=== PATIENT | male | born 1945 | race African-American/Black ===

== ENCOUNTER 2016-09-22 14:01 | Emergency (ER) | payer MEDICARE, MEDICAID ==
[~2016-09-22] VITALS: Ht 190.5 cm; Wt 82.0 kg
[~2016-09-22 14:01] MED LIST: AMLO10 PO; ASPI325T PO; ATOR10 PO; LISI10 PO; MECL25 PO; MEGE40TA PO; NIAS10004 PO; OXYBXL10 PO
[2016-09-22 14:03] VITALS: BP 197/93; PULSE 83; RESP 12; TEMP 97.9; O2SAT 98
[2016-09-22 14:46] VITALS: BP 210/96; PULSE 71; RESP 18; O2SAT 96
[2016-09-22] MEDS ORDERED: SODIUM CHLORIDE 0.9% FLUSH 5 ML FLUSH IVF PRN (15:15)
[2016-09-22] MEDS ORDERED: LEVO50TA4 PO (15:29)
[2016-09-22] MEDS ORDERED: MEGE40SU PO (15:29)
[2016-09-22] MEDS ORDERED: LISI40TA PO (15:29)
[2016-09-22] MEDS ORDERED: OXYB10TA PO (15:29)
[2016-09-22] MEDS ORDERED: HYDR-3534 PO (15:29)
[2016-09-22 15:30] VITALS: O2SAT 98
[2016-09-22 15:41] LABS: BASOPHIL % 0.9 % (0.0-2.0); EOSINOPHIL # 0.1 TH/MM3 (0-0.4); EOSINOPHIL % 3.3 % (0.0-4.0); HEMATOCRIT 34.7 % (39.0-51.0); HEMO FLAGS DIFF FINAL; LYMPH % 29.5 % (9.0-44.0); LYMPHOCYTE # 1.2 TH/MM3 (1.0-4.8); MEAN CORPUSCULAR HEMOGLOBIN 27.3 PG (27.0-34.0); MEAN CORPUSCULAR HGB CONC 32.1 % (32.0-36.0); MONO % 18.6 % (0.0-8.0); NEUT % 47.7 % (16.0-70.0); PLATELET COUNT 219 TH/MM3 (150-450); RED BLOOD COUNT 4.09 MIL/MM3 (4.50-5.90); RED CELL DISTRIBUTION WIDTH 15.8 % (11.6-17.2); WHITE BLOOD COUNT 4.1 TH/MM3 (4.0-11.0)
[2016-09-22 15:56] LABS: APTT (PATIENT) 26.8 SEC (24.3-30.1); PROTHROMBIN TIME - PATIENT 10.8 SEC (9.8-11.6)
--- NOTE | 2016-09-22 16:03 | RADRPT ---
EXAM DATE/TIME: 09/22/2016 15:46 [facility] COMPARISON: CT BRAIN W/O CONTRAST, November 25, 2015, 8:13. INDICATIONS : Tingling down left arm for 3 days; recent stroke. RADIATION DOSE: 35.03 CTDIvol (mGy) MEDICAL HISTORY : Cerebrovascular disease. Hypertension. Carcinoma, prostate.Blind. SURGICAL HISTORY : None. ENCOUNTER: Initial ACUITY: 2 days PAIN SCALE: 5/10 LOCATION: cranial TECHNIQUE: Multiple contiguous axial images were obtained of the head. Using automated exposure control and adj ustment of the mA and/or kV according to patient size, radiation dose was kept as low as reasonably a chievable to obtain optimal diagnostic quality images. FINDINGS: CEREBRUM: The ventricles are normal for age. No evidence of midline shift, mass lesion, hemorrhage or acute in farction. No extra-axial fluid collections are seen. POSTERIOR FOSSA: The cerebellum and brainstem are intact. The 4th ventricle is midline. The cerebellopontine angle i s unremarkable. EXTRACRANIAL: The visualized portion of the orbits is intact. SKULL: The calvaria is intact. No evidence of skull fracture. CONCLUSION: Stable evaluation of the brain. No evidence of acute infarct, hemorrhage, mass or edema. Juan Rebolledo MD on September 22, 2016 at 16:01 Board Certified Radiologist. This report was verified electronically.
[2016-09-22 16:04] LABS: ALT (GPT) 14 U/L (12-78); ANION GAP 10 MEQ/L (5-15); AST (GOT) 13 U/L (15-37); BICARBONATE 23.3 MEQ/L (21.0-32.0); BLOOD UREA NITROGEN 28 MG/DL (7-18); CHLORIDE 110 MEQ/L (98-107); GLOMERULAR FILTRATION RATE 25 ML/MIN (>89); POTASSIUM 3.9 MEQ/L (3.5-5.1); SODIUM (NA) 143 MEQ/L (136-145)
--- NOTE | 2016-09-22 16:07 | RADRPT ---
EXAM DATE/TIME: 09/22/2016 15:46 [facility] COMPARISON: CT CERVICAL SPINE W/O CONTRAST, August 07, 2015, 16:35. INDICATIONS : Tingling down left arm for 3 days; recent stroke. RADIATION DOSE: 18.82 CTDIvol (mGy) MEDICAL HISTORY : Cerebrovascular disease. Hypertension. Carcinoma, prostate.Blind. SURGICAL HISTORY : None. ENCOUNTER: Initial ACUITY: 2 days PAIN SCALE: 5/10 LOCATION: neck TECHNIQUE: Volumetric scanning of the cervical spine was performed. Multiplanar reconstructions in the sagittal, coronal and oblique axial planes were performed. Using automated exposure control and adjustment o f the mA and/or kV according to patient size, radiation dose was kept as low as reasonably achievable to obtain optimal diagnostic quality images. FINDINGS: Sagittal images demonstrate normal vertebral body alignment and curvature. The odontoid is intact. Th e occipital condyles and lateral masses of C1 are intact. Axial images were performed from C2-C3 to C7-T1. There is multilevel disc space narrowing and marginal osteophyte formation maximal at C6-C7. C2-C3: There is uncovertebral joint hypertrophy on left side. There is mild left sided neural foraminal narr owing. There is mild facet arthritis bilaterally. C3-C4: There is osteophytic ridging asymmetric to the right. There is uncovertebral joint hypertrophy on the right side. There is moderate neural foraminal narrowing on the right. C4-C5: There is osteophytic ridging along the posterior aspect of vertebral body. There is uncovertebral ara nt hypertrophy bilaterally. There is moderate neural foraminal narrowing bilaterally. There is mild s talon canal stenosis. C5-C6: There is mild diffuse annular bulge of the disc. The neural foramina are clear bilaterally. There is no significant spinal canal stenosis. C6-C7: There is osteophytic ridging along the posterior aspect of vertebral body. There is moderate neural f oraminal narrowing bilaterally. C7-T1: There is mild annular bulge of the disc. There is moderate facet arthritis bilaterally with ligamentu m flavum hypertrophy. The neural foramina are clear bilaterally. CONCLUSION: 1. Moderate degenerative changes as described above. There is no evidence of acute fracture. 2. Multilevel neural foraminal narrowing as above maximal at C4-C5 and C6-C7 moderate in nature Samir Antonio MD on September 22, 2016 at 16:02 Board Certified Radiologist. This report was verified electronically.
[2016-09-22 16:08] LABS: ALKALINE PHOSPHATASE 83 U/L (45-117); TOTAL BILIRUBIN ADULT 0.2 MG/DL (0.2-1.0)
[2016-09-22 17:08] VITALS: BP 201/93
--- NOTE | 2016-09-22 17:27 | PD ---
HPI Chief Complaint: Cardiac Complaint Time Seen by Provider: 14:45 Travel History International Travel<30 days: No Contact w/Intl Traveler<30days: No Traveled to known affect area: No History of Present Illness HPI This is a 71-year-old man who presents emergency department complaining of left upper some paresthesias ongoing for for 5 days. Initially thought it was related to a previous stroke that he had several months ago, but the symptoms persisted and so he came to the emergency department. He is left-handed. Hasn' t noticed any real weakness and it. He has noticed some numbness in the paresthesias. The been constant. He does note some throughout his left side of his body as well as mostly in the left arm. No other complaints. History Past Medical History Narrative Medical Chronic kidney disease Cardiomyopathy/AICD Prostate cancer, radiation cystitis COPD possibly, does smoke. Hypertension Influenza Vaccination: Yes Social History Alcohol Use: No Tobacco Use: Yes Allergies-Medications (Allergen,Severity, Reaction): Coded Allergies: Penicillin (Verified Allergy, Severe, RASH, 09/22/16) MRI PRECAUTION (Verified Adverse Reaction, Severe, NON REVO PACEMAKER 07/13, 09/22/16) Reported Meds & Prescriptions Reported Meds & Active Scripts Active Reported Levothyroxine (Levothyroxine Sodium) 50 Mcg Tab 50 Mcg PO DAILY Oxybutynin ER 24 HR (Oxybutynin Chloride) 10 Mg Tab 10 Mg PO DAILY Megestrol Liq (Megestrol Acetate) 40 Mg/Ml Susp 400 Mg PO BID Lisinopril 40 Mg Tab 40 Mg PO BID Lortab (Hydrocodone-Acetaminophen) 7.5-325 Mg Tab 1 Tab PO Q6H PRN Review of Systems Except as stated in HPI: all other systems reviewed are Neg Physical Exam Narrative GENERAL: 71-year-old: Well-appearing, no acute distress. SKIN: Warm and dry. HEAD: Atraumatic. Normocephalic. EYES: Pupils equal and round. No scleral icterus. No injection or drainage. ENT: No nasal bleeding or discharge. Mucous membranes pink and moist. NECK: Trachea midline. No JVD. CARDIOVASCULAR: Regular rate and rhythm. No murmur appreciated. RESPIRATORY: No accessory muscle use. Clear to auscultation. Breath sounds equal bilaterally. GASTROINTESTINAL: Abdomen soft, non-tender, nondistended. Hepatic and splenic margins not palpable. MUSCULOSKELETAL: No obvious deformities. No clubbing. No cyanosis. No edema. NEUROLOGICAL: Awake and alert. Strength full and equal upper and lower extremities. Symmetric equal reflexes throughout. Normal finger to nose. Normal [id number]. Subjective decreased sensation left arm. Normal sensation in both lower extremities. PSYCHIATRIC: Appropriate mood and affect; insight and judgment normal. Data Data Last Documented VS Vital Signs Date Time Temp Pulse Resp B/P Pulse Ox O2 Delivery O2 Flow Rate FiO2 09/22/16 17:08 70 18 201/93 98 09/22/16 15:30 Room Air 09/22/16 14:03 97.9 Orders Electrocardiogram (09/22/16 ) Prothrombin Time / Inr (Pt) (09/22/16 15:09) Act Partial Throm Time (Ptt) (09/22/16 15:09) Complete Blood Count With Diff (09/22/16 15:09) Comprehensive Metabolic Panel (09/22/16 15:09) Troponin I (09/22/16 15:09) Ct Brain W/O Iv Contrast(Rout) (09/22/16 15:09) Ecg Monitoring (09/22/16 15:09) Iv Access Insert/Monitor (09/22/16 15:09) Oximetry (09/22/16 15:09) Sodium Chloride 0.9% Flush (Ns Flush) (09/22/16 15:15) Ct Cerv Spine W/O Contrast (09/22/16 ) Labs Laboratory Tests Test 09/22/16 15:20 White Blood Count 4.1 TH/MM3 Red Blood Count 4.09 MIL/MM3 Hemoglobin 11.1 GM/DL Hematocrit 34.7 % Mean Corpuscular Volume 85.0 FL Mean Corpuscular Hemoglobin 27.3 PG Mean Corpuscular Hemoglobin 32.1 % Concent Red Cell Distribution Width 15.8 % Platelet Count 219 TH/MM3 Mean Platelet Volume 7.9 FL Neutrophils (%) (Auto) 47.7 % Lymphocytes (%) (Auto) 29.5 % Monocytes (%) (Auto) 18.6 % Eosinophils (%) (Auto) 3.3 % Basophils (%) (Auto) 0.9 % Neutrophils # (Auto) 2.0 TH/MM3 Lymphocytes # (Auto) 1.2 TH/MM3 Monocytes # (Auto) 0.8 TH/MM3 Eosinophils # (Auto) 0.1 TH/MM3 Basophils # (Auto) 0.0 TH/MM3 CBC Comment DIFF FINAL Differential Comment Prothrombin Time 10.8 SEC Prothromb Time International 1.0 RATIO Ratio Activated Partial 26.8 SEC Thromboplast Time Sodium Level 143 MEQ/L Potassium Level 3.9 MEQ/L Chloride Level 110 MEQ/L Carbon Dioxide Level 23.3 MEQ/L Anion Gap 10 MEQ/L Blood Urea Nitrogen 28 MG/DL Creatinine 3.01 MG/DL Estimat Glomerular Filtration 25 ML/MIN Rate Random Glucose 78 MG/DL Calcium Level 8.5 MG/DL Total Bilirubin 0.2 MG/DL Aspartate Amino Transf 13 U/L (AST/SGOT) Alanine Aminotransferase 14 U/L (ALT/SGPT) Alkaline Phosphatase 83 U/L Troponin I LESS THAN 0.02 NG/ML Total Protein 7.2 GM/DL Albumin 3.7 GM/DL MDM Medical Decision Making Medical Screen Exam Complete: Yes Emergency Medical Condition: Yes Interpretation(s) My review of EKG: Normal sinus rhythm at a rate of 69, inferior T-wave inversions, lateral T wave inversions, likely LVH. However, compared to previous EKG from November 22, T wave inversions are completely new. LABS: CBC unremarkable, mild anemia. CMP unremarkable Troponin negative. Coags unremarkable Head CT: Stable. C-spine CT: Moderate degenerative changes. No evidence of acute fracture. Multilevel neuroforaminal narrowing as above, maximal at C4 5, C6 7. Differential Diagnosis Radiculopathy, stroke, ACS, electrolyte abnormality, other Narrative Course Medical decision-making new para 71 year-old man, multiple medical problems, presents to the emergency department complaining of left arm paresthesias and numbness, as well as some and the rest of the body. He looks generally well. Some subjective sensory changes in the arm. Leg exam is normal. History of stroke. History of cardiomyopathy. Initial workups unremarkable with the exception of new T-wave inversions lateral EKG. He's had a previous evaluation for stroke symptoms including carotid Dopplers. He is not able to get an MRI because of his AICD. I recommended the patient [facility] especially given his new T-wave inversions. Patient is unable/unwilling to stay because his obligations at home but does agree to return immediately for any worsening symptoms. I discussed my concern for cardiac ischemia and risk for RI. Diagnosis Primary Impression: Paresthesia of left upper extremity Patient Instructions: General Instructions Additional Instructions: Follow-up with your primary doctor in the next 2-3 days. Return to emergency department immediately for any worsening numbness, weakness , clumsiness, or any other new or worsening symptoms. Med/Other Pt SpecificInfo: No Change to Meds Disposition: 01 DISCHARGE HOME Condition: Stable Ronnie Francois MD Sep 22, 2016 17:27
--- NOTE | 2016-09-23 20:38 | EKG ---
Date Performed: 09/22/2016 Time Performed: 14:49:48 PTAGE: 71 years EKG: Sinus rhythm WITH FIRST DEGREE AV BLOCK LEFT VENTRICULAR HYPERTROPHY AND ST-T CHANGE ABNORMAL ECG PREVIOUS TRACING : 11/23/2015 13.35 Compared to the previous tracing, ST-T changes now present DOCTOR: Fausto Jeong Interpretating Date/Time 09/23/2016 20:36:53
== END 2016-09-22 18:04 | disposition home or self-care (01) ==
LOC: NEPE 14:01
DX: R20.2 Paresthesia of skin (principal); N18.9 Chronic kidney disease, unspecified; I12.9 Hypertensive chronic kidney disease with stage 1 through stage 4 chronic kidney disease, or unspecified chronic kidney disease; Z72.0 Tobacco use
CPT/HCPCS: 70450; 72125; 80053; 84484; 85025; 85610; 85730; 93005

== ENCOUNTER 2016-12-05 20:02 | Emergency (ER) | payer MEDICARE, MEDICAID ==
[~2016-12-05] VITALS: Ht 193 cm; Wt 81.0 kg
[~2016-12-05 20:02] MED LIST changes: -AMLO10 PO; -ASPI325T PO; -ATOR10 PO; +HYDR-3534 PO; +LEVO50TA4 PO; -LISI10 PO; +LISI40TA PO; -MECL25 PO; +MEGE40SU PO; -MEGE40TA PO; -NIAS10004 PO; +OXYB10TA PO; -OXYBXL10 PO
[2016-12-05 20:12] VITALS: BP 189/91; PULSE 63; RESP 16; TEMP 97.7; O2SAT 97
[2016-12-05] MEDS ORDERED: SODIUM CHLORIDE 0.9% FLUSH 10 ML FLUSH IVF PRN (20:15)
--- NOTE | 2016-12-05 20:23 | PD ---
HPI Chief Complaint: Cardiac Complaint Time Seen by Provider: 20:12 Travel History International Travel<30 days: No Contact w/Intl Traveler<30days: No Traveled to known affect area: No History of Present Illness HPI The patient is 71. He arrives by EMS. He has a dual-chamber defibrillator replaced by Dr. Dhillon approximately 2 years prior. Today he felt the device discharge twice about 2 seconds apart. The patient was walking at the time in his home. He fell to the floor. His daughter heard a thud and called EMS. Prior to the defibrillation and afterwards the patient had no chest pain palpitation shortness of breath nausea dizziness or lightheadedness or medical complaints otherwise. EMS notes on scene the blood pressure was 200/100 with a heart rate of 70. The patient states that today was a normal day for him in the last several days have been normal with no change in his typical routine. No LOC occurred. PFSH Past Medical History Hx Anticoagulant Therapy: No Anemia: Yes Arthritis: Yes Asthma: No Blood Disorders: No Depression: Yes Heart Rhythm Problems: Yes Cancer: Yes (PROSTATE HX) Cardiac Catheterization: No Cardiovascular Problems: Yes (HTN, AICD) High Cholesterol: No Chemotherapy: No Chest Pain: No Congestive Heart Failure: Yes COPD: No Cerebrovascular Accident: Yes Diabetes: No Diminished Hearing: No Endocrine: No Gastrointestinal Disorders: No Genitourinary: Yes ([place] PROSTATE) Headaches: No Hepatitis: No Hiatal Hernia: No Heparin Induced Thrombocytopen: No Hypertension: Yes Immune Disorder: No Implanted Vascular Access Dvce: Yes (DEFIBRILLATOR LEFT UPPER CHEST) Kidney Stones: No Musculoskeletal: Yes Neurologic: No Psychiatric: Yes Reproductive: No Respiratory: No Myocardial Infarction: No Radiation Therapy: Yes Renal Failure: No Sleep Apnea: No Thyroid Disease: No Past Surgical History Abdominal Surgery: No AICD: No Arteriovenous Shunt: No Body Medical Devices: AICD Cardiac Surgery: Yes (DEFIB) Coronary Artery Bypass Graft: No Ear Surgery: No Endocrine Surgery: No Eye Surgery: No Genitourinary Surgery: Yes (prostatectomy with 46 treatments of radiation) Gynecologic Surgery: No Insulin Pump: No Joint Replacement: No Neurologic Surgery: No Oral Surgery: No Pacemaker: Yes (DEFIB) Thoracic Surgery: No Other Surgery: Yes (PACER MAKER PLACED) Social History Alcohol Use: No Tobacco Use: Yes Substance Use: No Allergies-Medications (Allergen,Severity, Reaction): Coded Allergies: Penicillin (Verified Allergy, Severe, RASH, 12/05/16) MRI PRECAUTION (Verified Adverse Reaction, Severe, NON REVO PACEMAKER 07/13, 12/05/16) Reported Meds & Prescriptions Reported Meds & Active Scripts Active Reported Oxybutynin ER 24 HR (Oxybutynin Chloride) 10 Mg Tab 10 Mg PO DAILY Megestrol Liq (Megestrol Acetate) 40 Mg/Ml Susp 400 Mg PO BID Lisinopril 40 Mg Tab 40 Mg PO BID Review of Systems Except as stated in HPI: all other systems reviewed are Neg Physical Exam Narrative GENERAL: 71-year-old male pleasant no acute distress asymptomatic SKIN: Warm and dry. HEAD: Atraumatic. Normocephalic. EYES: Pupils equal and round. No scleral icterus. No injection or drainage. ENT: No nasal bleeding or discharge. Mucous membranes pink and moist. NECK: Trachea midline. No JVD. CARDIOVASCULAR: Regular rate and rhythm. Pacing device L anterior chest wall. RESPIRATORY: No accessory muscle use. Clear to auscultation. Breath sounds equal bilaterally. GASTROINTESTINAL: Abdomen soft, non-tender, nondistended. Hepatic and splenic margins not palpable. MUSCULOSKELETAL: Extremities without clubbing, cyanosis, or edema. No obvious deformities. NEUROLOGICAL: Awake and alert. No obvious cranial nerve deficits. Motor grossly within normal limits. Five out of 5 muscle strength in the arms and legs. Normal speech. PSYCHIATRIC: Appropriate mood and affect; insight and judgment normal. Data Data Last Documented VS Vital Signs Date Time Temp Pulse Resp B/P Pulse Ox O2 Delivery O2 Flow Rate FiO2 12/05/16 21:53 62 17 204/104 97 Room Air 12/05/16 20:12 97.7 Orders Electrocardiogram (12/05/16 20:12) Basic Metabolic Panel (Bmp) (12/05/16 20:12) Ckmb (Isoenzyme) Profile (12/05/16 20:12) Complete Blood Count With Diff (12/05/16 20:12) Magnesium (Mg) (12/05/16 20:12) Prothrombin Time / Inr (Pt) (12/05/16 20:12) Act Partial Throm Time (Ptt) (12/05/16 20:12) Troponin I (12/05/16 20:12) Chest, Single Ap (12/05/16 20:12) Ecg Monitoring (12/05/16 20:12) Iv Access Insert/Monitor (12/05/16 20:12) Oximetry (12/05/16 20:12) Oxygen Administration (12/05/16 20:12) Sodium Chloride 0.9% Flush (Ns Flush) (12/05/16 20:15) CKMB (12/05/16 20:30) CKMB% (12/05/16 20:30) Lisinopril (Prinivil) (12/05/16 21:30) Labs Laboratory Tests Test 12/05/16 20:30 White Blood Count 3.8 TH/MM3 Red Blood Count 4.43 MIL/MM3 Hemoglobin 11.7 GM/DL Hematocrit 37.1 % Mean Corpuscular Volume 83.7 FL Mean Corpuscular Hemoglobin 26.4 PG Mean Corpuscular Hemoglobin 31.6 % Concent Red Cell Distribution Width 16.6 % Platelet Count 205 TH/MM3 Mean Platelet Volume 8.0 FL Neutrophils (%) (Auto) 41.1 % Lymphocytes (%) (Auto) 32.7 % Monocytes (%) (Auto) 19.2 % Eosinophils (%) (Auto) 5.9 % Basophils (%) (Auto) 1.1 % Neutrophils # (Auto) 1.6 TH/MM3 Lymphocytes # (Auto) 1.2 TH/MM3 Monocytes # (Auto) 0.7 TH/MM3 Eosinophils # (Auto) 0.2 TH/MM3 Basophils # (Auto) 0.0 TH/MM3 CBC Comment DIFF FINAL Differential Comment Prothrombin Time 11.5 SEC Prothromb Time International 1.0 RATIO Ratio Activated Partial 26.9 SEC Thromboplast Time Sodium Level 141 MEQ/L Potassium Level 4.6 MEQ/L Chloride Level 112 MEQ/L Carbon Dioxide Level 21.3 MEQ/L Anion Gap 8 MEQ/L Blood Urea Nitrogen 21 MG/DL Creatinine 2.98 MG/DL Estimat Glomerular Filtration 25 ML/MIN Rate Random Glucose 99 MG/DL Calcium Level 8.3 MG/DL Magnesium Level 2.3 MG/DL Total Creatine Kinase 113 U/L Creatine Kinase MB 0.8 NG/ML Troponin I LESS THAN 0.02 NG/ML MDM Medical Decision Making Medical Screen Exam Complete: Yes Emergency Medical Condition: Yes Differential Diagnosis NSTEMI, unstable angina, coronary vasospasm, PE, PTX, aortic dissection, pericarditis, myocarditis, endocarditis, PNA, esophageal disease, aneurysm, musculoskeletal etiologies, anxiety, cocaine/sympathomimetic abuse Narrative Course CBC & BMP Diagram 12/05/16 20:30 Troponin is less than 0.02 EKG sinus rhythm, MN interval 220 ms, T-wave inversions in the inferior leads noted which appear stable in comparison to our most recent EKG from about 2 months prior The patient has remained asymptomatic throughout his ER course. Interrogation of trauma device shows no episode of arrhythmia since 3 months prior when it was last interrogated. Patient requests discharge. His workup here is unremarkable aside from mild hypertension. He agrees to follow-up with primary care for further evaluation. Return precautions discussed. Diagnosis Primary Impression: Fall Qualified Code: W19.XXXA - Fall, initial encounter Additional Impression: Chest pain Qualified Code: R07.9 - Chest pain, unspecified type Referrals: Occup [facility] 2 days Primary Care Physician 2 days Additional Instructions: You have a choice when it comes to health care, and we are glad that you chose [facility]. Hopefully, we have met your expectations on today's visit. You are welcome to return to [facility] at any time, as we are committed to meeting the health care needs of our community. Med/Other Pt SpecificInfo: No Change to Meds Disposition: 01 DISCHARGE HOME Condition: Stable Abdiel Ballard MD Dec 05, 2016 20:23
[2016-12-05 20:24] VITALS: BP 192/93; PULSE 61; RESP 19; O2SAT 98
--- NOTE | 2016-12-05 20:39 | RADRPT ---
EXAM DATE/TIME: 12/05/2016 20:15 [facility] COMPARISON: CHEST SINGLE AP, November 23, 2015, 14:02. INDICATIONS : Chest pain, defibulator went off. MEDICAL HISTORY : Cerebrovascular disease. Hypertension. Carcinoma, prostate. SURGICAL HISTORY : AICD. ENCOUNTER: Initial ACUITY: 1 day PAIN SCORE: 2/10 LOCATION: chest FINDINGS: The lungs are symmetrically aerated and clear. The heart is normal size. Cardiac pacer leads stable in position. No evidence of pneumothorax. The osseous structures are intact. CONCLUSION: The lungs are clear. Haris Blanc MD on December 05, 2016 at 20:37 Board Certified Radiologist. This report was verified electronically.
[2016-12-05 20:47] LABS: APTT (PATIENT) 26.9 SEC (24.3-30.1); PROTHROMBIN TIME - PATIENT 11.5 SEC (9.8-11.6)
[2016-12-05 20:50] LABS: AUTOMATED NEUTROPHIL # 1.6 TH/MM3 (1.8-7.7); BASOPHIL % 1.1 % (0.0-2.0); EOSINOPHIL # 0.2 TH/MM3 (0-0.4); EOSINOPHIL % 5.9 % (0.0-4.0); HEMATOCRIT 37.1 % (39.0-51.0); HEMO FLAGS DIFF FINAL; LYMPH % 32.7 % (9.0-44.0); LYMPHOCYTE # 1.2 TH/MM3 (1.0-4.8); MEAN CELL VOLUME 83.7 FL (80.0-100.0); MEAN CORPUSCULAR HEMOGLOBIN 26.4 PG (27.0-34.0); MEAN CORPUSCULAR HGB CONC 31.6 % (32.0-36.0); MONO % 19.2 % (0.0-8.0); NEUT % 41.1 % (16.0-70.0); PLATELET COUNT 205 TH/MM3 (150-450); RED BLOOD COUNT 4.43 MIL/MM3 (4.50-5.90); RED CELL DISTRIBUTION WIDTH 16.6 % (11.6-17.2); WHITE BLOOD COUNT 3.8 TH/MM3 (4.0-11.0)
[2016-12-05 20:54] VITALS: BP 185/90; PULSE 67; RESP 19; O2SAT 98
[2016-12-05 21:04] LABS: ANION GAP 8 MEQ/L (5-15); BICARBONATE 21.3 MEQ/L (21.0-32.0); BLOOD UREA NITROGEN 21 MG/DL (7-18); CHLORIDE 112 MEQ/L (98-107); CREATINE KINASE 113 U/L (39-308); GLOMERULAR FILTRATION RATE 25 ML/MIN (>89); MAGNESIUM 2.3 MG/DL (1.5-2.5); POTASSIUM 4.6 MEQ/L (3.5-5.1); SODIUM (NA) 141 MEQ/L (136-145)
[2016-12-05 21:17] LABS: CKMB 0.8 NG/ML (0.5-3.6)
[2016-12-05] MEDS ORDERED: LISINOPRIL 20 MG TAB PO ONE (21:30)
[2016-12-05 21:36] VITALS: BP 177/97; PULSE 62; RESP 19; O2SAT 99
[2016-12-05 21:53] VITALS: BP 204/104; PULSE 62; RESP 17; O2SAT 97
--- NOTE | 2016-12-05 23:38 | EKG ---
Date Performed: 12/05/2016 Time Performed: 20:10:56 PTAGE: 71 years EKG: Sinus rhythm WITH FIRST DEGREE AV BLOCK LEFT VENTRICULAR HYPERTROPHY AND ST-T CHANGE ABNORMAL ECG PREVIOUS TRACING : 09/22/2016 14.49 DOCTOR: Konstantin Dhillon Interpretating Date/Time 12/05/2016 23:37:29
== END 2016-12-05 23:12 | disposition home or self-care (01) ==
LOC: NEPC 20:02
DX: R07.9 Chest pain, unspecified (principal); I10 Essential (primary) hypertension; Z95.810 Presence of automatic (implantable) cardiac defibrillator; W18.39XA Other fall on same level, initial encounter; Y93.01 Activity, walking, marching and hiking; Y92.019 Unspecified place in single-family (private) house as the place of occurrence of the external cause; Y99.9 Unspecified external cause status
CPT/HCPCS: 71010; 80048; 82550; 82552; 83735; 84484; 85025; 85610; 85730; 93005

== ENCOUNTER 2017-04-16 08:44 | Emergency (ER) | payer MEDICARE, MEDICAID ==
[~2017-04-16] VITALS: Ht 190.5 cm; Wt 80.0 kg
[~2017-04-16 08:44] MED LIST changes: -HYDR-3534 PO; -LEVO50TA4 PO
[2017-04-16 08:52] VITALS: BP 174/86; PULSE 80; RESP 16; TEMP 97.8; O2SAT 98
[2017-04-16] MEDS ORDERED: diphenhydrAMINE HCL 50 MG/ML VIAL IV PUSH ONE (09:00)
--- NOTE | 2017-04-16 09:11 | PD ---
HPI Chief Complaint: Medical Clearance Time Seen by Provider: 08:59 Travel History International Travel<30 days: No Contact w/Intl Traveler<30days: No Traveled to known affect area: No History of Present Illness HPI 72-year-old male with history of previous pacemaker, hypertension, stroke, presents to the ER today because he states that there are bedbugs in his living quarters, he has been trying to tell management about them but it has not been dealt with. He is here because of "bedbugs". He states he is itching all over. He denies any fevers, chest pains, shortness of breath, nausea, vomiting , abdominal pain, or any other symptoms. Per EMS, they did note bed bugs on him when they picked him up and had to decontaminate him on scene and brought him in a Decon suit. Modifying Factors: None Associated Signs & Symptoms: Itching, bedbugs Risk Factors: Elderly PFSH Past Medical History Hx Anticoagulant Therapy: No Anemia: Yes Arthritis: Yes Asthma: No Blood Disorders: No Depression: Yes Heart Rhythm Problems: Yes Cancer: Yes (PROSTATE HX) Cardiac Catheterization: No Cardiovascular Problems: Yes High Cholesterol: No Chemotherapy: No Chest Pain: No Congestive Heart Failure: Yes COPD: No Cerebrovascular Accident: Yes Diabetes: No Diminished Hearing: No Endocrine: No Gastrointestinal Disorders: No Genitourinary: Yes ([place] PROSTATE) Headaches: No Hepatitis: No Hiatal Hernia: No Heparin Induced Thrombocytopen: No Hypertension: Yes Immune Disorder: No Implanted Vascular Access Dvce: Yes (DEFIBRILLATOR LEFT UPPER CHEST) Kidney Stones: No Musculoskeletal: Yes Neurologic: No Psychiatric: Yes Reproductive: No Respiratory: No Myocardial Infarction: No Radiation Therapy: Yes Renal Failure: No Sleep Apnea: No Thyroid Disease: No Past Surgical History Abdominal Surgery: No AICD: No Arteriovenous Shunt: No Body Medical Devices: AICD Cardiac Surgery: Yes (DEFIB) Coronary Artery Bypass Graft: No Ear Surgery: No Endocrine Surgery: No Eye Surgery: No Genitourinary Surgery: Yes (prostatectomy with 46 treatments of radiation) Gynecologic Surgery: No Insulin Pump: No Joint Replacement: No Neurologic Surgery: No Oral Surgery: No Pacemaker: Yes (DEFIB) Thoracic Surgery: No Other Surgery: Yes (PACER MAKER PLACED) Social History Alcohol Use: Yes Tobacco Use: Yes (1/2PPD) Substance Use: No Allergies-Medications (Allergen,Severity, Reaction): Coded Allergies: Penicillin (Verified Allergy, Severe, RASH, 04/16/17) MRI PRECAUTION (Verified Adverse Reaction, Severe, NON REVO PACEMAKER 07/13, 04/16/17) Reported Meds & Prescriptions Reported Meds & Active Scripts Active Reported Oxybutynin ER 24 HR (Oxybutynin Chloride) 10 Mg Tab 10 Mg PO DAILY Megestrol Liq (Megestrol Acetate) 40 Mg/Ml Susp 400 Mg PO BID Lisinopril 40 Mg Tab 40 Mg PO BID Review of Systems Except as stated in HPI: all other systems reviewed are Neg Physical Exam Narrative GENERAL: Well-developed elderly -[place] male patient currently in mild distress. Awake and oriented 3. SKIN: Focused skin assessment warm/dry. Notable multiple areas of excoriation to the arms, legs. No significant surrounding erythema. Nontender to palpation. HEAD: Atraumatic. Normocephalic. EYES: Pupils equal and round. No scleral icterus. No injection or drainage. ENT: No nasal bleeding or discharge. Mucous membranes pink and moist. NECK: Trachea midline. No JVD. CARDIOVASCULAR: Regular rate and rhythm. No murmur appreciated. RESPIRATORY: No accessory muscle use. Clear to auscultation. Breath sounds equal bilaterally. GASTROINTESTINAL: Abdomen soft, non-tender, nondistended. Hepatic and splenic margins not palpable. MUSCULOSKELETAL: No obvious deformities. No clubbing. No cyanosis. No edema. NEUROLOGICAL: Awake and alert. No obvious cranial nerve deficits. Motor grossly within normal limits. Normal speech. PSYCHIATRIC: Appropriate mood and affect; insight and judgment normal. Data Data Last Documented VS Vital Signs Date Time Temp Pulse Resp B/P Pulse Ox O2 Delivery O2 Flow Rate FiO2 04/16/17 08:52 97.8 80 16 174/86 98 Orders Complete Blood Count With Diff (04/16/17 08:59) Comprehensive Metabolic Panel (04/16/17 08:59) Diphenhydramine Inj (Benadryl Inj) (04/16/17 09:00) Electrocardiogram (04/16/17 09:54) Ckmb (Isoenzyme) Profile (04/16/17 09:54) Prothrombin Time / Inr (Pt) (04/16/17 09:54) Act Partial Throm Time (Ptt) (04/16/17 09:54) Troponin I (04/16/17 09:54) Chest, Single Ap (04/16/17 09:54) Ecg Monitoring (04/16/17 09:54) Bilateral Bp Monitoring (04/16/17 09:54) Iv Access Insert/Monitor (04/16/17 09:54) Oximetry (04/16/17 09:54) Oxygen Administration (04/16/17 09:54) Sodium Chloride 0.9% Flush (Ns Flush) (04/16/17 10:00) Labs Laboratory Tests Test 04/16/17 09:00 White Blood Count 3.5 TH/MM3 Red Blood Count 3.88 MIL/MM3 Hemoglobin 10.5 GM/DL Hematocrit 33.0 % Mean Corpuscular Volume 85.1 FL Mean Corpuscular Hemoglobin 27.1 PG Mean Corpuscular Hemoglobin 31.8 % Concent Red Cell Distribution Width 15.5 % Platelet Count 253 TH/MM3 Mean Platelet Volume 7.4 FL Neutrophils (%) (Auto) 54.6 % Lymphocytes (%) (Auto) 25.0 % Monocytes (%) (Auto) 13.1 % Eosinophils (%) (Auto) 6.2 % Basophils (%) (Auto) 1.1 % Neutrophils # (Auto) 1.9 TH/MM3 Lymphocytes # (Auto) 0.9 TH/MM3 Monocytes # (Auto) 0.5 TH/MM3 Eosinophils # (Auto) 0.2 TH/MM3 Basophils # (Auto) 0.0 TH/MM3 CBC Comment DIFF FINAL Differential Comment Sodium Level 142 MEQ/L Potassium Level 3.5 MEQ/L Chloride Level 111 MEQ/L Carbon Dioxide Level 24.6 MEQ/L Anion Gap 6 MEQ/L Blood Urea Nitrogen 18 MG/DL Creatinine 2.65 MG/DL Estimat Glomerular Filtration 29 ML/MIN Rate Random Glucose 61 MG/DL Calcium Level 8.2 MG/DL Total Bilirubin 0.2 MG/DL Aspartate Amino Transf 18 U/L (AST/SGOT) Alanine Aminotransferase 12 U/L (ALT/SGPT) Alkaline Phosphatase 93 U/L Total Protein 7.3 GM/DL Albumin 3.2 GM/DL MDM Medical Decision Making Medical Screen Exam Complete: Yes Emergency Medical Condition: Yes Medical Record Reviewed: Yes Interpretation(s) Laboratory Tests Test 04/16/17 09:00 White Blood Count 3.5 TH/MM3 (4.0-11.0) Red Blood Count 3.88 MIL/MM3 (4.50-5.90) Hemoglobin 10.5 GM/DL (13.0-17.0) Hematocrit 33.0 % (39.0-51.0) Mean Corpuscular Hemoglobin 31.8 % Concent (32.0-36.0) Monocytes (%) (Auto) 13.1 % (0.0-8.0) Eosinophils (%) (Auto) 6.2 % (0.0-4.0) Lymphocytes # (Auto) 0.9 TH/MM3 (1.0-4.8) Chloride Level 111 MEQ/L (98-107) Creatinine 2.65 MG/DL (0.60-1.30) Estimat Glomerular Filtration 29 ML/MIN (>89) Rate Random Glucose 61 MG/DL (74-106) Calcium Level 8.2 MG/DL (8.5-10.1) Albumin 3.2 GM/DL (3.4-5.0) Differential Diagnosis Skin excoriation/bedbugs/insect biteschest pain Narrative Course He initially told EMS that he has been nauseous and vomiting but in the ER he denies any nausea or vomiting. He states that the reason he is here is because of the bed bugs. After lab work was done initially did not show any signs of significant liver enzyme elevations are bilirubin elevations, patient had been given Benadryl, and and I have notified patient regarding lab results. He states that he is now having chest pains. Patient states that the facility is not dealing with the bed bugs. At this point, chest pain workup was initiated. However, when nurse went in to get EKG and radiology came to get chest x-ray, patient refused both and refused to get evaluated further. At this point, we have talked him regarding the fact that chest pain cannot be evaluated further and underlying cardiac issues cannot be evaluated without further testing. If he wants to leave, he would have to sign out AMA. However, he is refusing to sign paperwork. Patient understands that without further workup, I cannot further diagnose him and rule out acute issues. AMA: The risks of leaving against medical advice without further evaluation treatment were discussed with the patient. These risks include cardiac dysfunction, cardiac dysrhythmia, possible heart attack, possible stroke or . The patient indicated understanding of these risks and appeared to have the capacity to make this decision. Diagnosis Primary Impression: Chest pain Additional Impression: Bedbug bite Disposition: 07 AGAINST MEDICAL ADVICE Condition: Stable Lisa Alvarenga MD Apr 16, 2017 09:11
[2017-04-16 09:30] LABS: AUTOMATED NEUTROPHIL # 1.9 TH/MM3 (1.8-7.7); BASOPHIL % 1.1 % (0.0-2.0); EOSINOPHIL # 0.2 TH/MM3 (0-0.4); EOSINOPHIL % 6.2 % (0.0-4.0); HEMO FLAGS DIFF FINAL; LYMPHOCYTE # 0.9 TH/MM3 (1.0-4.8); MEAN CELL VOLUME 85.1 FL (80.0-100.0); MEAN CORPUSCULAR HEMOGLOBIN 27.1 PG (27.0-34.0); MEAN CORPUSCULAR HGB CONC 31.8 % (32.0-36.0); MONO % 13.1 % (0.0-8.0); NEUT % 54.6 % (16.0-70.0); PLATELET COUNT 253 TH/MM3 (150-450); RED BLOOD COUNT 3.88 MIL/MM3 (4.50-5.90); RED CELL DISTRIBUTION WIDTH 15.5 % (11.6-17.2); WHITE BLOOD COUNT 3.5 TH/MM3 (4.0-11.0)
[2017-04-16 09:39] LABS: ANION GAP 6 MEQ/L (5-15); AST (GOT) 18 U/L (15-37); BICARBONATE 24.6 MEQ/L (21.0-32.0); BLOOD UREA NITROGEN 18 MG/DL (7-18); CHLORIDE 111 MEQ/L (98-107); GLOMERULAR FILTRATION RATE 29 ML/MIN (>89); POTASSIUM 3.5 MEQ/L (3.5-5.1); SODIUM (NA) 142 MEQ/L (136-145)
[2017-04-16 09:40] LABS: ALT (GPT) 12 U/L (12-78)
[2017-04-16 09:42] LABS: ALKALINE PHOSPHATASE 93 U/L (45-117); TOTAL BILIRUBIN ADULT 0.2 MG/DL (0.2-1.0)
[2017-04-16] MEDS ORDERED: SODIUM CHLORIDE 0.9% FLUSH 10 ML FLUSH IVF PRN (10:00)
[2017-04-16 11:36] LABS: APTT (PATIENT) 24.9 SEC (24.3-30.1); PROTHROMBIN TIME - PATIENT 10.7 SEC (9.8-11.6)
[2017-04-16 12:18] LABS: CREATINE KINASE 93 U/L (39-308)
--- NOTE | 2017-04-17 17:14 | EKG ---
Date Performed: 04/16/2017 Time Performed: 11:05:55 PTAGE: 72 years EKG: Sinus rhythm WITH FIRST DEGREE AV BLOCK MARKED LEFT AXIS DEVIATION LEFT VENTRICULAR HYPERTROPHY AND ST-T CHANGE A BNORMAL ECG Compared to prior tracing no significant change PREVIOUS TRACING : 12/05/2016 20.10 DOCTOR: Juan José Hauser Interpretating Date/Time 04/17/2017 17:12:38
== END 2017-04-16 10:52 | disposition left against medical advice (07) ==
LOC: NEPC 08:44
DX: R07.9 Chest pain, unspecified (principal); S80.861A Insect bite (nonvenomous), right lower leg, initial encounter; S80.862A Insect bite (nonvenomous), left lower leg, initial encounter; S40.861A Insect bite (nonvenomous) of right upper arm, initial encounter; S40.862A Insect bite (nonvenomous) of left upper arm, initial encounter; I44.0 Atrioventricular block, first degree; I51.7 Cardiomegaly; R94.31 Abnormal electrocardiogram [ECG] [EKG]; W57.XXXA Bitten or stung by nonvenomous insect and other nonvenomous arthropods, initial encounter
CPT/HCPCS: 80053; 82550; 84484; 85025; 85610; 85730; 93005; 96374; 99284; J1200; 71010; 99285; G0378

== ENCOUNTER 2017-04-16 10:37 | Observation (INO) | payer MEDICARE, MEDICAID ==
[~2017-04-16] VITALS: Ht 190.5 cm; Wt 80.0 kg
[2017-04-16] VITALS (7 sets, daily range): BP systolic 158–198; BP diastolic 82–95; PULSE 62–69; RESP 14–18; TEMP 98–98.8; O2SAT 97–99
--- NOTE | 2017-04-16 12:46 | RADRPT ---
EXAM DATE/TIME: 04/16/2017 11:56 [facility] COMPARISON: CHEST SINGLE AP, December 05, 2016, 20:15. INDICATIONS : Chest pain. MEDICAL HISTORY : Hypertension. SURGICAL HISTORY : Pacemaker. ENCOUNTER: Initial ACUITY: 1 day PAIN SCORE: 4/10 LOCATION: chest FINDINGS: Pacemaker device is noted with control pack over the left chest. Lungs are hyperinflated but focally clear. No effusion is present. Cardiac contour is satisfactory. CONCLUSION: Emphysema. No focal lung disease. Magen Cruz MD on April 16, 2017 at 12:44 Board Certified Radiologist. This report was verified electronically.
--- NOTE | 2017-04-16 12:58 | PD ---
Physical Exam Date Seen by Provider: Apr 16, 2017 Time Seen by Provider: 11:30 Narrative Patient returns after signing out AGAINST MEDICAL ADVICE. Workup was continued. Chest x-ray did not show any signs of acute pulmonary processes. Cardiac enzymes are negative. But considering his cardiac history, my plan would be to admit the patient for further evaluation with chest pain center. Data Data Last Documented VS Vital Signs Date Time Temp Pulse Resp B/P Pulse Ox O2 Delivery O2 Flow Rate FiO2 04/16/17 10:52 Room Air 04/16/17 10:52 98.0 62 16 168/88 99 Orders Chest, Single Ap (04/16/17 11:48) Admit Order (Ed Use Only) (04/16/17 12:56) [facility] Medical Record Reviewed: Yes Supervised Visit with KATHIE: No Diagnosis Primary Impression: Chest pain Admitting Information Admitting Physician Requests: Lisa Mccartney MD Apr 16, 2017 12:58
[2017-04-16] MEDS ORDERED: ACETAMINOPHEN 500 MG CPLT PO PRN (14:45)
[2017-04-16] MEDS ORDERED: cloNIDine HCL 0.2 MG TAB PO ONE (14:45)
[2017-04-16] MEDS ORDERED: ACETAMINOPHEN/HYDROcodone 325 MG/7.5 MG TAB PO PRN (14:45)
[2017-04-16] MEDS ORDERED: TEMAZEPAM 15 MG CAP PO PRN (14:45)
[2017-04-16] MEDS ORDERED: SODIUM CHLORIDE 0.9% FLUSH 10 ML FLUSH IV FLUSH PRN (14:45)
[2017-04-16] MEDS ORDERED: ONDANSETRON HCL 4 MG/2 ML VIAL IV PRN (14:45)
[2017-04-16] MEDS ORDERED: NITROGLYCERIN 0.4 MG SL 25 TABS/BTL SL PRN (14:45)
--- NOTE | 2017-04-16 15:14 | HHI.DCPOC ---
Discharge Care Plan Diagnosis: (1) Bedbug bite (2) Chest pain, atypical Goals to Promote Your Health * To prevent worsening of your condition and complications * To maintain your health at the optimal level Directions to Meet Your Goals Take your medications as prescribed Follow your dietary instruction Follow activity as directed Keep your appointments as scheduled Take your immunizations and boosters as scheduled If your symptoms worsen call your PCP, if no PCP go to Urgent Care Center or Emergency Room Smoking is Dangerous to Your Health. Avoid second hand smoke Call the 24-hour hour crisis hotline for domestic abuse at Lew Franco MD Apr 16, 2017 15:14
--- NOTE | 2017-04-16 15:36 | MH ---
cc: BROCK BEASLEY MD DATE OF ADMISSION: 04/16/2017 ADMITTING DIAGNOSIS: My defibrillator went off twice this morning and shocked me. HISTORY OF PRESENT ILLNESS Mr. Wright is a 9-year-old gentleman with known nonischemic cardiomyopathy who had a defibrillator changed about [address] Dhillon. His history is of questionable reliability. He claims that he is having his Defibrillator checked every month in Dr. Dhillon office. He does not recall seeing other cardiologists. He said that this morning he was awakened with two shocks that felt like a severe pain in his left chest and left side. He apparently had someone called in his apartment complex. Is other complaint is bed bugs. Apparently there was fumigation or something done at the site this morning. He was transported to the emergency room and evaluated at that time. He signed out against medical advice but then came back about three hours later, early this afternoon. If he wanted to have his defibrillator checked out. He does not complain of other types of chest pain other than soreness or tenderness of the left side and in his left arm. He does not complain of anything like angina. He does not complain of shortness of breath. He claims he takes his medications including Lisinopril 40 mg b.i.d. for blood pressure and he takes something for appetite. He says he as it was going to a primary care doctor but is not sure who this is now. He says he gets around on his own. He claims to have had a stroke about a year and half ago, and was of Hospital for a few days. He says his voice is weak because of this although he can move all extremities and can walk and does ride a bike. He did have a heart catheterization about ten years ago which showed nonischemic cardiomyopathy. He has some mild coronary disease at that time. He has had no <<3:10>> runs, he denies diabetes. He has had a problem with weight loss. He denies nausea and vomiting now, although in the previous history earlier today there apparently was a complaint of nausea and vomiting. PAST MEDICAL HISTORY: His past medical history includes a defibrillator put in over 10 years ago with a change out about a year and half ago. He apparently is had previous prostatectomy with treatment. He has not had myocardial infarction. He does claim that he has had a stroke in the past. He has family in town but apparently does not get along with his sisters. He denies alcohol usage now. He smokes a half-pack of cigarettes a day. He denies substance abuse. ALLERGIES ALLERGIC TO PENICILLIN MEDICATIONS: Oxybutynin ER 24, 10 mg daily Lisinopril 40 mg b.i.d. Megestrol liquid 40 mg per ML suspension 400 mg p.o. b.i.d. REVIEW OF SYSTEMS The review of systems reveals weak voice. He thinks he has a little left arm weakness. He claims to have had a stroke in the past. He has had no other HEENT problems recently. No thyroid disease. Denies pulmonary disease. Heart disease as mentioned. He has never complained of angina that I know of. He says appetite is poor and that he has lost weight. He has had a prostate problems. No peripheral edema or ischemia symptoms in his legs. PHYSICAL EXAMINATION: VITAL SIGNS: On admission are blood pressure 174/86 and present pressure was 186/106. Pulse 80, and regular. O2 sat 98%. HEAD, EYES, EARS, NOSE, AND THROAT: Eyes are clear. Throat is clear. He is edentulous. NECK: The Neck is supple. LUNGS: Lungs were clear. CARDIOVASCULAR: There is no murmur or gallop. He has a defibrillator implant in the left chest. He is generally tender over the left chest wall. No edema, no ecchymoses seen. ABDOMEN: Appears to be fairly wasted. Abdominal aorta not enlarged. There are no bruits. Average abdomen. No masses are felt. Femoral and peripheral pulses are intact. There is no edema. RADIOLOGIC: Electrocardiogram shows LVH with secondary ST-T changes and left axis deviation. He is in a sinus rhythm with first degree AV block. LABORATORY FINDINGS: His hemoglobin 10.5. His creatinine is 2.65 which is the same as before with a BUN of 18. No other logan. The troponin is normal. Chest x-ray was unremarkable. The [employer] Spa Receptionist is coming to check his defibrillator. ASSESSMENT: The patient claims "I have had shocks" from his defribillator and this will be checked out. He appears to be stable from a cardiac standpoint. At this point we were monitoring presently with no ectopy. His history is of questionable accuracy. He obviously has a social situation where he lives with bed bugs. PLAN Defibrillator will be interrogated to determine if he did indeed have shocks and if he did bakery technician will maybe be in touch with Dr. Dhillon about what to do about this. If there were no shocks, presently he will not need further evaluation and chest pain center, as he is really not complaining of any other type of chest pain. He had proven nonischemic cardiomyopathy but with mild coronary disease, ten years ago but there aren't any complains that sound like angina and his troponin is negative. MD CRISTINA Garza/williams /2:54 PM /3:06 PM MTDD
[2017-04-16] MEDS ORDERED: SODIUM CHLORIDE 0.9% FLUSH 10 ML FLUSH IV FLUSH SCH (21:00)
[2017-04-17] MEDS ORDERED: ASPIRIN 325 MG TAB PO SCH (09:00)
[2017-04-17 19:59] VITALS: O2SAT 99
== END 2017-04-16 16:15 | disposition home or self-care (01) ==
LOC: NEPC 10:37 → NEDA 12:57
DX: R07.89 Other chest pain (principal); T14.8 Other injury of unspecified body region; I10 Essential (primary) hypertension; Z95.0 Presence of cardiac pacemaker; S80.861A Insect bite (nonvenomous), right lower leg, initial encounter; S80.862A Insect bite (nonvenomous), left lower leg, initial encounter; S40.861A Insect bite (nonvenomous) of right upper arm, initial encounter; S40.862A Insect bite (nonvenomous) of left upper arm, initial encounter; I44.0 Atrioventricular block, first degree; I51.7 Cardiomegaly; R94.31 Abnormal electrocardiogram [ECG] [EKG]; W57.XXXA Bitten or stung by nonvenomous insect and other nonvenomous arthropods, initial encounter
CPT/HCPCS: 71010; 99285; G0378

== ENCOUNTER 2017-09-05 16:53 | Inpatient (IN) | payer MEDICARE, MEDICAID ==
[~2017-09-05] VITALS: Ht 191.8 cm; Wt 64.6 kg
[2017-09-05 17:00] VITALS: BP 201/96; PULSE 100; RESP 16; TEMP 101.6; O2SAT 96
--- NOTE | 2017-09-05 17:08 | PD ---
HPI Chief Complaint: Back/ Neck Pain or Injury Time Seen by Provider: 17:04 Travel History International Travel<30 days: No Contact w/Intl Traveler<30days: No Traveled to known affect area: No History of Present Illness HPI 72-year-old male came to the emergency room with history of fever and left lateral neck mass that's painful for past 2-3 days. Patient says that he did not have this swelling prior to 2-3 days ago. His temperature was 101.6 here. Patient is not a diabetic. He does have a hoarse voice but he says that he has had this more since his stroke more than a year ago. Patient is otherwise awake and answering questions appropriately. [facility] Past Medical History Narrative Medical List of his past medical, surgical, social and family history is reviewed from the nursing note. Hx Anticoagulant Therapy: No Anemia: Yes Arthritis: Yes Asthma: No Blood Disorders: No Depression: Yes Heart Rhythm Problems: Yes Cancer: Yes (PROSTATE HX) Cardiac Catheterization: No Cardiovascular Problems: Yes High Cholesterol: No Chemotherapy: No Chest Pain: No Congestive Heart Failure: Yes COPD: No Cerebrovascular Accident: Yes Diabetes: No Diminished Hearing: No Endocrine: No Gastrointestinal Disorders: No Genitourinary: Yes ([place] PROSTATE) Headaches: No Hepatitis: No Hiatal Hernia: No Heparin Induced Thrombocytopen: No Hypertension: Yes Immune Disorder: No Implanted Vascular Access Dvce: Yes (DEFIBRILLATOR LEFT UPPER CHEST) Kidney Stones: No Musculoskeletal: Yes Neurologic: No Psychiatric: Yes Reproductive: No Respiratory: No Myocardial Infarction: No Radiation Therapy: Yes Renal Failure: No Sleep Apnea: No Thyroid Disease: No Past Surgical History Abdominal Surgery: No AICD: No Arteriovenous Shunt: No Body Medical Devices: AICD Cardiac Surgery: Yes (DEFIB) Coronary Artery Bypass Graft: No Ear Surgery: No Endocrine Surgery: No Eye Surgery: No Genitourinary Surgery: Yes (prostatectomy with 46 treatments of radiation) Gynecologic Surgery: No Insulin Pump: No Joint Replacement: No Neurologic Surgery: No Oral Surgery: No Pacemaker: Yes (DEFIB) Thoracic Surgery: No Other Surgery: Yes (PACER MAKER PLACED) Social History Alcohol Use: Yes Tobacco Use: Yes (1/2PPD) Substance Use: No Allergies-Medications (Allergen,Severity, Reaction): Coded Allergies: penicillin G (Unverified Allergy, Severe, RASH, 09/05/17) MRI PRECAUTION (Verified Adverse Reaction, Severe, NON REVO PACEMAKER 07/13, 09/05/17) Comments List of his allergies reviewed from the nursing note Reported Meds & Prescriptions Reported Meds & Active Scripts Active Narrative Medication List of his home medications reviewed from the nursing note. Review of Systems Except as stated in HPI: all other systems reviewed are Neg General / Constitutional: Positive: Fever Physical Exam Narrative GENERAL: Awake, alert, moderate distress SKIN: Focused skin assessment warm/dry. HEAD: Atraumatic. Normocephalic. EYES: Pupils equal and round. No scleral icterus. No injection or drainage. ENT: No nasal bleeding or discharge. Mucous membranes pink and moist. NECK: Trachea midline. No JVD. Lateral neck swelling that is tender and warm to touch. It is 5 cm x 5 cm. CARDIOVASCULAR: Regular rate and rhythm. No murmur appreciated. RESPIRATORY: No accessory muscle use. Clear to auscultation. Breath sounds equal bilaterally. GASTROINTESTINAL: Abdomen soft, non-tender, nondistended. Hepatic and splenic margins not palpable. MUSCULOSKELETAL: No obvious deformities. No clubbing. No cyanosis. No edema. NEUROLOGICAL: Awake and alert. No obvious cranial nerve deficits. Motor grossly within normal limits. Normal speech. PSYCHIATRIC: Appropriate mood and affect; insight and judgment normal. Data Data Last Documented VS Orders Orders Sepsis Workup Initiated (09/05/17 ) Complete Blood Count With Diff (09/05/17 17:17) Comprehensive Metabolic Panel (09/05/17 17:17) Lactic Acid Sepsis Protocol (09/05/17 17:17) Blood Culture (09/05/17 17:17) Chest, Single Ap (09/05/17 17:17) Blood Glucose (09/05/17 17:17) Ecg Monitoring (09/05/17 17:17) Iv Access Insert/Monitor (09/05/17 17:17) Oximetry (09/05/17 17:17) Oxygen Administration (09/05/17 17:17) Acetaminophen (Tylenol) (09/05/17 17:30) Sodium Chlor 0.9% 1000 Ml Inj (Ns 1000 M (09/05/17 17:30) Vancomycin Inj (Vancomycin Inj) (09/05/17 17:30) Aztreonam Inj (Azactam Inj) (09/05/17 17:30) Ct Soft Tiss Neck W/O Iv Cont (09/05/17 ) Admit To Inpatient (09/05/17 ) Vital Signs (Adult) Q4H (09/05/17 18:38) Activity Oob With Assistance (09/05/17 18:38) Twister Operator / Telemetry .CONTINUOUS (09/05/17 18:38) Diet Clear Liquid (09/05/17 Dinner) Sodium Chloride 0.9% Flush (Ns Flush) (09/05/17 18:45) Sodium Chloride 0.9% Flush (Ns Flush) (09/05/17 21:00) Complete Blood Count With Diff (09/06/17 06:00) Case Management Consult (09/05/17 18:38) Naloxone Inj (Narcan Inj) (09/05/17 18:45) Inpatient Certification (09/05/17 ) Lactobacillus Acidophilus Pkt (Lactinex (09/05/17 21:00) Consult Ent (09/05/17 ) Potassium Chloride (Kcl) (09/05/17 18:45) Clindamycin 900 Mg/Ns Premix (Cleocin 90 (09/06/17 00:00) Admit Order (Ed Use Only) (09/05/17 18:43) Labs Laboratory Tests Test 09/05/17 17:25 White Blood Count 15.4 TH/MM3 Red Blood Count 4.27 MIL/MM3 Hemoglobin 10.8 GM/DL Hematocrit 34.0 % Mean Corpuscular Volume 79.5 FL Mean Corpuscular Hemoglobin 25.3 PG Mean Corpuscular Hemoglobin Concent 31.8 % Red Cell Distribution Width 17.0 % Platelet Count 206 TH/MM3 Mean Platelet Volume 7.6 FL Neutrophils (%) (Auto) 83.1 % Lymphocytes (%) (Auto) 3.3 % Monocytes (%) (Auto) 13.4 % Eosinophils (%) (Auto) 0.0 % Basophils (%) (Auto) 0.2 % Neutrophils # (Auto) 12.8 TH/MM3 Lymphocytes # (Auto) 0.5 TH/MM3 Monocytes # (Auto) 2.1 TH/MM3 Eosinophils # (Auto) 0.0 TH/MM3 Basophils # (Auto) 0.0 TH/MM3 CBC Comment DIFF FINAL Differential Comment Blood Urea Nitrogen 31 MG/DL Creatinine 2.92 MG/DL Random Glucose 134 MG/DL Total Protein 7.5 GM/DL Albumin 3.3 GM/DL Calcium Level 8.2 MG/DL Alkaline Phosphatase 69 U/L Aspartate Amino Transf (AST/SGOT) 9 U/L Alanine Aminotransferase (ALT/SGPT) 11 U/L Total Bilirubin 0.5 MG/DL Sodium Level 144 MEQ/L Potassium Level 3.4 MEQ/L Chloride Level 112 MEQ/L Carbon Dioxide Level 24.6 MEQ/L Anion Gap 7 MEQ/L Estimat Glomerular Filtration Rate 26 ML/MIN Lactic Acid Level 1.9 mmol/L MDM Medical Decision Making Medical Screen Exam Complete: Yes Emergency Medical Condition: Yes Medical Record Reviewed: Yes Differential Diagnosis Cervical lymphadenitis, neck abscess, sepsis Narrative Course 6:54 PM patient was given IV fluid bolus, Tylenol, antibiotic given as per sepsis protocol. Blood test result shows leukocytosis and renal insufficiency that is chronic. There was a CT scan of the neck ordered which had to be done without contrast given his renal function. There is a hyperdense fluid collection visible on the corresponding part of his neck. I discussed the case with Dr. Baldwin from ENT and he agrees with the treatment plan so far. He requested to add IV Decadron to the treatment. Patient has been admitted to the hospitalist service. Procedures EKG Prior to Arrival: No Physician Communication Physician Communication Dr. Baldwin Diagnosis Primary Impression: Fever Qualified Codes: R50.9 - Fever, unspecified Additional Impressions: Neck abscess SIRS (systemic inflammatory response syndrome) Admitting Information Admitting Physician Requests: Admit Scripts Prednisone (21) 5 mg tab Dose Pack (Prednisone (21) 5 mg tab Dose Pack) 5 Mg Dspk 5 MG PO DIRECTED for Inflammation, #1 DSPK 0 Refills Prov: Josh Abreu MD 09/06/17 Metoprolol Tartrate (Metoprolol Tartrate) 25 Mg Tab 25 MG PO Q12HR for Blood Pressure Management for 30 Days, TAB Prov: Josh Abreu MD 09/06/17 Clindamycin (Clindamycin) 300 Mg Cap 600 MG PO Q8H for Infection for 14 Days, #84 CAP 0 Refills Prov: Josh Abreu MD 09/06/17 Nifedipine ER 24 HR (Nifedipine ER 24 HR) 30 Mg Tab 30 MG PO DAILY for blood pressure, #30 TAB 0 Refills Prov: Josh Abreu MD 09/06/17 Ruperto Abraham MD 31, 2017 17:08
[2017-09-05] MEDS ORDERED: SODIUM CHLOR 0.9% 1000 ML INJ 1,000 ML IV ONE (17:30)
[2017-09-05] MEDS ORDERED: AZTREONAM INJ 2,000 MG in SODIUM CHLORIDE 0.9% INJ 100 ML IV ONE (17:30)
[2017-09-05] MEDS ORDERED: ACETAMINOPHEN 325 MG TAB PO ONE (17:30)
[2017-09-05] MEDS ORDERED: VANCOMYCIN INJ 1,000 MG in SODIUM CHLOR 0.9% 250 ML INJ 250 ML IV ONE (17:30)
[2017-09-05 17:42] LABS: AUTOMATED NEUTROPHIL # 12.8 TH/MM3 (1.8-7.7); BASOPHIL % 0.2 % (0.0-2.0); HEMOGLOBIN 10.8 GM/DL (13.0-17.0); LYMPH % 3.3 % (9.0-44.0); LYMPHOCYTE # 0.5 TH/MM3 (1.0-4.8); MEAN CELL VOLUME 79.5 FL (80.0-100.0); MEAN CORPUSCULAR HEMOGLOBIN 25.3 PG (27.0-34.0); MEAN CORPUSCULAR HGB CONC 31.8 % (32.0-36.0); MEAN PLATELET VOLUME 7.6 FL (7.0-11.0); MONO % 13.4 % (0.0-8.0); MONOCYTE # 2.1 TH/MM3 (0-0.9); NEUT % 83.1 % (16.0-70.0); PLATELET COUNT 206 TH/MM3 (150-450); RED BLOOD COUNT 4.27 MIL/MM3 (4.50-5.90); WHITE BLOOD COUNT 15.4 TH/MM3 (4.0-11.0)
[2017-09-05 17:57] LABS: ALBUMIN 3.3 GM/DL (3.4-5.0); ALT (GPT) 11 U/L (12-78); AST (GOT) 9 U/L (15-37); BICARBONATE 24.6 MEQ/L (21.0-32.0); BLOOD UREA NITROGEN 31 MG/DL (7-18); CALCIUM 8.2 MG/DL (8.5-10.1); CHLORIDE 112 MEQ/L (98-107); CREATININE 2.92 MG/DL (0.60-1.30); GLOMERULAR FILTRATION RATE 26 ML/MIN (>89); GLUCOSE,RANDOM 134 MG/DL (74-106); SODIUM (NA) 144 MEQ/L (136-145)
[2017-09-05 18:00] LABS: ALKALINE PHOSPHATASE 69 U/L (45-117); TOTAL BILIRUBIN ADULT 0.5 MG/DL (0.2-1.0); TOTAL PROTEIN 7.5 GM/DL (6.4-8.2)
--- NOTE | 2017-09-05 18:00 | RADRPT ---
EXAM DATE/TIME: 09/05/2017 17:34 [facility] COMPARISON: CHEST SINGLE AP, April 16, 2017, 11:56. INDICATIONS : Fever and short of breath. MEDICAL HISTORY : Cerebrovascular disease. Hypertension. Carcinoma, prostate.Blind. SURGICAL HISTORY : None. ENCOUNTER: Initial ACUITY: 1 day PAIN SCORE: 0/10 LOCATION: Bilateral chest FINDINGS: The lungs are clear without infiltrate, nodule, or mass. There is no appreciable pleural effusion fo r technique. Heart and mediastinum are unremarkable. Left subclavian transvenous pacer wires are pre sent with tips in the right atrium and right ventricle. CONCLUSION: No acute cardiopulmonary disease. Frank Whitfield MD on September 05, 2017 at 17:58 Board Certified Radiologist. This report was verified electronically.
[2017-09-05] MEDS ORDERED: POTASSIUM CHLORIDE 10 MEQ CAP PO ONE (18:45)
[2017-09-05] MEDS ORDERED: SODIUM CHLORIDE 0.9% FLUSH 10 ML FLUSH IV FLUSH PRN ×2 (18:45→19:15)
[2017-09-05] MEDS ORDERED: NALOXONE HCL 0.4 MG/ML AMP IV PUSH PRN (18:45)
[2017-09-05] MEDS ORDERED: DEXAMETHASONE SOD PHOS 20 MG/5 ML VIAL IV PUSH ONE (19:00)
--- NOTE | 2017-09-05 19:07 | HHI.HP ---
HPI Service [facility] Primary Care Physician Toyr Zaragoza MD Admission Diagnosis SIRS, neck abscess Diagnoses: (1) Sepsis Diagnosis: Principal (2) Neck mass Diagnosis: Principal (3) Renal insufficiency Diagnosis: Principal (4) HTN (hypertension) Diagnosis: Principal (5) Hypokalemia Diagnosis: Principal (6) Tobacco abuse Diagnosis: Principal Travel History International Travel<30 Days: No Contact w/Intl Traveler <30 Da: No Traveled to Known Affected Are: No History of Present Illness This is a 72-year-old male with a PMH of HTN, Depression, CHF (Echok 11/24/15 w/ EF 55-60%), Tobacco Abuse and Prostate CA who presented to the ER w/ left neck mass and pain. States symptoms started acutely approx 3 days ago, noted worsening swelling/pain x2 days. Pain is constant, severe, 8/10, non- radiating. Denies difficulty swallowing or breathing. Does note subjective fever/chills at home. On arrival, BP 201/96, HR 100, O2 sat 96% on RA, Temp 101.6. WBC 15.4. Creatinine 2.19, WBC 2.65 on 04/16/17. Lactic Acid 1.9. UA pending. CXR with no acute findings. CT Neck w/ hyperdense fluid collection of left neck, pending official read by Radiologist. Dr. Baldwin consulted by ER physician, recommended IV Abx and Decadron IV. Review of Systems Except as stated in HPI: all other systems reviewed are Neg ROS: 14 point review of systems otherwise negative. Past Family Social History Past Medical History PMH: HTN, Depression, CHF (Echok 11/24/15 w/ EF 55-60%), Tobacco Abuse and Prostate CA Past Surgical History PAST SURGICAL HISTORY: Defibrillator, Prostatectomy Allergies: Coded Allergies: penicillin G (Unverified Allergy, Severe, RASH, 09/05/17) MRI PRECAUTION (Verified Adverse Reaction, Severe, NON REVO PACEMAKER 07/13, 09/05/17) Family History PAST FAMILY HISTORY: Reviewed. No h/o DM or CAD Social History PAST SOCIAL HISTORY: Positive for alcohol. Smokes 1/2ppd. H/o Cocaine, denies recent use. Physical Exam Vital Signs Vital Signs Date Time Temp Pulse Resp B/P (MAP) Pulse Ox O2 Delivery O2 Flow Rate FiO2 09/05/17 17:04 16 09/05/17 17:00 101.6 100 16 201/96 (131) 96 Physical Exam PE: GENERAL: Elderly male in no acute distress. HEENT: PERRLA, EOMI. No scleral icterus or conjunctival pallor. No lid lag or facial droop. Large left-sided neck mass, tender to palpation, no drainage noted. CARDIOVASCULAR: Regular rate and rhythm. No obvious murmurs to auscultation. No chest tenderness to palpation. RESPIRATORY: No obvious rhonchi or wheezing. Clear to auscultation. Breath sounds equal bilaterally. GASTROINTESTINAL: Abdomen soft, non-tender, nondistended. BS normal. MUSCULOSKELETAL: Extremities without clubbing, cyanosis, or edema. No obvious deformities. NEUROLOGICAL: Awake, alert and oriented x4. No focal neurologic deficits. Moving both upper and lower extremities spontaneously. Laboratory Laboratory Tests Test 09/05/17 17:25 White Blood Count 15.4 Red Blood Count 4.27 Hemoglobin 10.8 Hematocrit 34.0 Mean Corpuscular Volume 79.5 Mean Corpuscular Hemoglobin 25.3 Mean Corpuscular Hemoglobin Concent 31.8 Red Cell Distribution Width 17.0 Platelet Count 206 Mean Platelet Volume 7.6 Neutrophils (%) (Auto) 83.1 Lymphocytes (%) (Auto) 3.3 Monocytes (%) (Auto) 13.4 Eosinophils (%) (Auto) 0.0 Basophils (%) (Auto) 0.2 Neutrophils # (Auto) 12.8 Lymphocytes # (Auto) 0.5 Monocytes # (Auto) 2.1 Eosinophils # (Auto) 0.0 Basophils # (Auto) 0.0 CBC Comment DIFF FINAL Differential Comment Blood Urea Nitrogen 31 Creatinine 2.92 Random Glucose 134 Total Protein 7.5 Albumin 3.3 Calcium Level 8.2 Alkaline Phosphatase 69 Aspartate Amino Transf (AST/SGOT) 9 Alanine Aminotransferase (ALT/SGPT) 11 Total Bilirubin 0.5 Sodium Level 144 Potassium Level 3.4 Chloride Level 112 Carbon Dioxide Level 24.6 Anion Gap 7 Estimat Glomerular Filtration Rate 26 Lactic Acid Level 1.9 Date/Time Source Procedure Growth Status 09/05/17 17:25 Blood Peripheral Aerobic Blood Culture Pending Received 09/05/17 17:25 Blood Peripheral Anaerobic Blood Culture Pending Received Result Diagram: 09/05/17 1725 09/05/17 1725 Caprini VTE Risk Assessment Caprini VTE Risk Assessment: No/Low Risk (score <= 1) Caprini Risk Assessment Model Point Value = 1 Point Value = 2 Point Value = 3 Point Value = 5 Age 41-60 Minor surgery BMI > 25 kg/m2 Swollen legs Varicose veins or History of unexplained or recurrent spontaneous Oral contraceptives or hormone replacement Sepsis (< 1 month) Serious lung disease, including pneumonia (< 1 month) Abnormal pulmonary function Acute myocardial infarction Congestive heart failure (< 1 month) History of inflammatory bowel disease Medical patient at bed rest Age 61-74 Arthroscopic surgery Major open surgery (> 45 min) Laparoscopic surgery (> 45 min) Malignancy Confined to bed (> 72 hours) Immobilizing plaster cast Central venous access Age >= 75 History of VTE Family history of VTE Factor V Leiden Prothrombin [id number] Lupus anticoagulant Anticardiolipin antibodies Elevated serum homocysteine Heparin-induced thrombocytopenia Other congenital or acquired thrombophilia Stroke (< 1 month) Elective arthroplasty Hip, pelvis, or leg fracture Acute spinal cord injury (< 1 month) Prophylaxis Regimen Total Risk Factor Score Risk Level Prophylaxis Regimen 0-1 Low Early ambulation 2 Moderate Order ONE of the following: *Sequential Compression Device (SCD) *Heparin 5000 units SQ BID 3-4 Higher Order ONE of the following medications: *Heparin 5000 units SQ TID *Enoxaparin/Lovenox 40 mg SQ daily (WT < 150 kg, CrCl > 30 mL/min) *Enoxaparin/Lovenox 30 mg SQ daily (WT < 150 kg, CrCl > 10-29 mL/min) *Enoxaparin/Lovenox 30 mg SQ BID (WT < 150 kg, CrCl > 30 mL/min) AND/OR *Sequential Compression Device (SCD) 5 or more Highest Order ONE of the following medications: *Heparin 5000 units SQ TID (Preferred with Epidurals) *Enoxaparin/Lovenox 40 mg SQ daily (WT < 150 kg, CrCl > 30 mL/min) *Enoxaparin/Lovenox 30 mg SQ daily (WT < 150 kg, CrCl > 10-29 mL/min) *Enoxaparin/Lovenox 30 mg SQ BID (WT < 150 kg, CrCl > 30 mL/min) AND *Sequential Compression Device (SCD) Assessment and Plan Problem List: (1) Sepsis ICD Code: A41.9 - Sepsis, unspecified organism (2) Neck mass ICD Code: R22.1 - Localized swelling, mass and lump, neck (3) Renal insufficiency ICD Code: N28.9 - Disorder of kidney and ureter, unspecified (4) Hypokalemia ICD Code: E87.6 - Hypokalemia (5) HTN (hypertension) ICD Code: I10 - Essential (primary) hypertension (6) Tobacco abuse ICD Code: Z72.0 - Tobacco use Assessment and Plan A/P: 1. Sepsis: Temp 101.6, HR 100, WBC 15.4, Source-likely left neck abscess. S/ p Blood Cultures, IV Vanc/Zosyn in ER. Follow up cultures, continue w/ IV Abx, IVF 2. Left Neck Mass: CT Neck w/ hyperdense fluid collection at left neck, pending official read by Radiologist. Dr. Baldwin consulted, plan for IV Abx and Decadron, orders placed to continue IV Abx and IV Decadron. Clear liquids as tolerated. Analgesics/antiemetics as needed. 3. Renal Insufficiency: Acute on Chronic. Creatinine 2.92, previously 2.65 on 04/16/17. IVF for hydration, repeat labs in a.m., monitor I/O 4. Hypokalemia: K+ 3.4, s/p replacement, will recheck labs and monitor for need to replace. 5. HTN: Uncontrolled. BP 201/96, HR 100 on arrival, start Metoprolol bid, monitor BP, add additional meds as needed. 6. Tobacco Abuse: Pt counselled. Ativan/NicoDerm prn if needed. 7. DVT Prophylaxis: SCD/Teds 8. Social work for d/c planning as needed. 9. Previous records/labs/imaging reviewed by me. Case discussed at length w/ ER physician. Physician Certification 2 Midnight Certification Type: Admission for Inpatient Services Order for Inpatient Services The services are ordered in accordance with Medicare regulations or non- Medicare payer requirements, as applicable. In the case of services not specified as inpatient-only, they are appropriately provided as inpatient services in accordance with the 2-midnight benchmark. Estimated LOS (days): 2 days is the estimated time the patient will need to remain in the hospital, assuming treatment plan goals are met and no additional complications. Post-Hospital Plan: Not yet determined Tierra Anderson MD Sep 05, 2017 19:07
[2017-09-05] MEDS ORDERED: BISACODYL 10 MG SUPP RECTAL PRN (19:15)
[2017-09-05] MEDS ORDERED: ACETAMINOPHEN/HYDROcodone 325 MG/5 MG TAB PO PRN (19:15)
[2017-09-05] MEDS ORDERED: MAGNESIUM HYDROXIDE SUSP 30 ML CUP PO PRN (19:15)
[2017-09-05] MEDS ORDERED: MORPHINE SULFATE 2 MG/ML INJ IV PUSH PRN (19:15)
[2017-09-05] MEDS ORDERED: LACTULOSE SYRUP 20 GM/30 ML CUP PO PRN (19:15)
[2017-09-05] MEDS ORDERED: ONDANSETRON HCL 4 MG/2 ML VIAL IVP PRN (19:15)
[2017-09-05] MEDS ORDERED: SENNOSIDES 8.6 MG TAB PO PRN (19:15)
[2017-09-05] MEDS ORDERED: ACETAMINOPHEN 325 MG TAB PO PRN (19:15)
[2017-09-05 19:33] VITALS: BP 158/72; PULSE 87; RESP 20; TEMP 101; O2SAT 98
[2017-09-05 20:00] VITALS: PULSE 85
--- NOTE | 2017-09-05 20:10 | RADRPT ---
EXAM DATE/TIME: 09/05/2017 18:08 [facility] COMPARISON: No previous studies available for comparison. INDICATIONS : Left sided neck pain today. IV CONTRAST: 0 cc Omnipaque 350 (iohexol) IV RADIATION DOSE: 14.65 CTDIvol (mGy) MEDICAL HISTORY : Stroke. Congestive heart failure. SURGICAL HISTORY : Prostatectomy. ENCOUNTER: Initial ACUITY: 1 day PAIN SCALE: 7/10 LOCATION: Left neck TECHNIQUE: Volumetric scanning of the neck was performed. Using automated exposure control and adjustment of th e mA and/or kV according to patient size, radiation dose was kept as low as reasonably achievable to obtain optimal diagnostic quality images. DICOM format image data is available electronically for re view and comparison. FINDINGS: There is no evidence for any appreciable pathological adenopathy in the patient's neck. The parotid glands, submandibular glands, thyroid glands appear intact. The visceral compartment is grossly inta ct without infiltrating mass. The visualized sinuses are clear. There is haziness involving the fat planes on the left side of the neck without any focal abscess formation or any pocket of fluid. This is probably inflammatory in the etiology is not certain. CONCLUSION: Haziness and edema involving the left side of the neck without focal abscess and the etiology is not certain. Frank Whitfield MD on September 05, 2017 at 20:03 Board Certified Radiologist. This report was verified electronically.
[2017-09-05] MEDS ORDERED: IBUPROFEN 800 MG TAB PO ONE (20:30)
[2017-09-05] MEDS ORDERED: SODIUM CHLORIDE 0.9% FLUSH 10 ML FLUSH IV FLUSH SCH (21:00)
[2017-09-05] MEDS: SODIUM CHLORIDE 0.9% FLUSH 10 ML FLUSH IV FLUSH SCH (21:00)
[2017-09-05] MEDS: DOCUSATE SODIUM 50 MG/SENNA 8.6 MG TAB PO SCH (21:00)
[2017-09-05] MEDS: METOPROLOL TARTRATE 25 MG TAB PO SCH (21:45)
[2017-09-05] MEDS: SODIUM CHLOR 0.9% 1000 ML INJ 1,000 ML IV SCH (21:55)
[2017-09-05] MEDS: LACTOBACILLUS ACIDOPHILUS 1 GM PACKET PO SCH (22:02)
[2017-09-06] VITALS: BP 145/71; PULSE 63; PULSE 65; RESP 20; TEMP 98.1; O2SAT 99
[2017-09-06] MEDS: CLINDAMYCIN 900 MG/NS PREMIX 50 ML IV SCH ×3 (01:31→13:26)
[2017-09-06] MEDS: DEXAMETHASONE SOD PHOS 4 MG/ML VIAL IV PUSH SCH ×2 (02:18→09:29)
[2017-09-06 04:00] VITALS: BP 151/72; PULSE 58; PULSE 61; RESP 20; TEMP 97.4; O2SAT 98
[2017-09-06] MEDS: SODIUM CHLOR 0.9% 1000 ML INJ 1,000 ML IV SCH (05:45)
[2017-09-06 06:17] LABS: AUTOMATED NEUTROPHIL # 13.2 TH/MM3 (1.8-7.7); BASOPHIL % 0.1 % (0.0-2.0); HEMATOCRIT 32.2 % (39.0-51.0); HEMOGLOBIN 9.9 GM/DL (13.0-17.0); LYMPH % 2.3 % (9.0-44.0); LYMPHOCYTE # 0.3 TH/MM3 (1.0-4.8); MEAN CELL VOLUME 79.3 FL (80.0-100.0); MEAN CORPUSCULAR HEMOGLOBIN 24.4 PG (27.0-34.0); MEAN CORPUSCULAR HGB CONC 30.8 % (32.0-36.0); MONO % 4.8 % (0.0-8.0); MONOCYTE # 0.7 TH/MM3 (0-0.9); NEUT % 92.8 % (16.0-70.0); PLATELET COUNT 172 TH/MM3 (150-450); RED BLOOD COUNT 4.06 MIL/MM3 (4.50-5.90); RED CELL DISTRIBUTION WIDTH 17.1 % (11.6-17.2); WHITE BLOOD COUNT 14.2 TH/MM3 (4.0-11.0)
[2017-09-06 06:44] LABS: ALKALINE PHOSPHATASE 74 U/L (45-117); ALT (GPT) 11 U/L (12-78); AST (GOT) 8 U/L (15-37); BICARBONATE 20.3 MEQ/L (21.0-32.0); BLOOD UREA NITROGEN 35 MG/DL (7-18); CALCIUM 8.7 MG/DL (8.5-10.1); CHLORIDE 112 MEQ/L (98-107); CREATININE 2.94 MG/DL (0.60-1.30); GLOMERULAR FILTRATION RATE 26 ML/MIN (>89); GLUCOSE,RANDOM 127 MG/DL (74-106); SODIUM (NA) 139 MEQ/L (136-145); TOTAL BILIRUBIN ADULT 0.4 MG/DL (0.2-1.0); TOTAL PROTEIN 7.4 GM/DL (6.4-8.2)
[2017-09-06 08:00] VITALS: BP 154/71; PULSE 60; RESP 18; TEMP 98.2; O2SAT 94
--- NOTE | 2017-09-06 08:18 | PD.CONS ---
History of Present Illness Service ENT Consult Requested By ED Reason for Consult Left neck edema (NO ABSCESS, clinically on on CT Scan) Primary Care Physician Tory Zaragoza MD Diagnoses: History of Present Illness 72 year old male, acute and chronic renal insufficiency. Admitted with 2 to 3 days left neck opain and swelling. Admitted with this and elevated white blood cell count. CT scan confirmed haziness and edema involving the left side if the neck. No evidence of abscess, no significant lymphadenopathy. Patient was admitted and placed on IV steroids and antibiotics. He has improved rapidly overnight. Edema is resolved. Minimal residual tenderness. No erythema. Review of Systems Ears, nose, mouth, throat: DENIES: Nasal discharge, Oral lesions, Throat pain, Odynophagia Past Family Social History Allergies: Coded Allergies: penicillin G (Unverified Allergy, Severe, RASH, 09/05/17) MRI PRECAUTION (Verified Adverse Reaction, Severe, NON REVO PACEMAKER 07/13, 09/05/17) Physical Exam Vital Signs Vital Signs Date Time Temp Pulse Resp B/P (MAP) Pulse Ox O2 Delivery O2 Flow Rate FiO2 09/06/17 04:00 61 09/06/17 04:00 97.4 58 20 151/72 (98) 98 09/06/17 00:00 63 09/06/17 00:00 98.1 65 20 145/71 (95) 99 09/05/17 20:00 85 09/05/17 20:00 Room Air 09/05/17 19:33 101.0 87 20 158/72 (100) 98 09/05/17 17:04 16 09/05/17 17:00 101.6 100 16 201/96 (131) 96 Physical Exam GENERAL: This is a well-nourished, well-developed patient, in no apparent distress. SKIN: No rashes, ecchymoses or lesions. Cool and dry. HEAD: Atraumatic. Normocephalic. No temporal or scalp tenderness. EYES: Pupils equal round and reactive. Extraocular motions intact. No scleral icterus. No injection or drainage. ENT: Nose without bleeding, purulent drainage or septal hematoma. Throat without erythema, tonsillar hypertrophy or exudate. Uvula midline. Airway patent. NECK: Trachea midline. No JVD or lymphadenopathy. Supple, minimal tenderness left neck , no meningeal signs. NEUROLOGICAL: Awake and alert. Normal speech. Laboratory Laboratory Tests Test 09/05/17 17:25 09/06/17 05:28 White Blood Count 15.4 14.2 Red Blood Count 4.27 4.06 Hemoglobin 10.8 9.9 Hematocrit 34.0 32.2 Mean Corpuscular Volume 79.5 79.3 Mean Corpuscular Hemoglobin 25.3 24.4 Mean Corpuscular Hemoglobin Concent 31.8 30.8 Red Cell Distribution Width 17.0 17.1 Platelet Count 206 172 Mean Platelet Volume 7.6 8.0 Neutrophils (%) (Auto) 83.1 92.8 Lymphocytes (%) (Auto) 3.3 2.3 Monocytes (%) (Auto) 13.4 4.8 Eosinophils (%) (Auto) 0.0 0.0 Basophils (%) (Auto) 0.2 0.1 Neutrophils # (Auto) 12.8 13.2 Lymphocytes # (Auto) 0.5 0.3 Monocytes # (Auto) 2.1 0.7 Eosinophils # (Auto) 0.0 0.0 Basophils # (Auto) 0.0 0.0 CBC Comment DIFF FINAL DIFF FINAL Differential Comment Blood Urea Nitrogen 31 35 Creatinine 2.92 2.94 Random Glucose 134 127 Total Protein 7.5 7.4 Albumin 3.3 3.0 Calcium Level 8.2 8.7 Alkaline Phosphatase 69 74 Aspartate Amino Transf (AST/SGOT) 9 8 Alanine Aminotransferase (ALT/SGPT) 11 11 Total Bilirubin 0.5 0.4 Sodium Level 144 139 Potassium Level 3.4 4.7 Chloride Level 112 112 Carbon Dioxide Level 24.6 20.3 Anion Gap 7 7 Estimat Glomerular Filtration Rate 26 26 Lactic Acid Level 1.9 Date/Time Source Procedure Growth Status 09/05/17 17:25 Blood Peripheral Aerobic Blood Culture Pending Received 09/05/17 17:25 Blood Peripheral Anaerobic Blood Culture Pending Received Result Diagram: 09/06/1728 09/06/[address] results reviewed. Assessment and Plan Assessment and Plan 72 year old male, left neck inflammatory process. This is NOT an abscess. He has had great improvement overnight. In view of acute and chronic renal insufficiency, I suspect this was early parotitis or submandibular sialadenitis. Recomend gentle hydration as appropriate. Can discharge home on antibiotics for a week. Should not require any further steroids. ENT PRN. Follow with primary care. aJy Baldwin MD Sep 06, 2017 08:18
[2017-09-06] MEDS: DOCUSATE SODIUM 50 MG/SENNA 8.6 MG TAB PO SCH (09:00)
[2017-09-06] MEDS: SODIUM CHLORIDE 0.9% FLUSH 10 ML FLUSH IV FLUSH SCH (09:30)
[2017-09-06] MEDS: METOPROLOL TARTRATE 25 MG TAB PO SCH (09:31)
[2017-09-06] MEDS: LACTOBACILLUS ACIDOPHILUS 1 GM PACKET PO SCH ×2 (09:31→13:26)
[2017-09-06 12:00] VITALS: BP 169/81; PULSE 60; RESP 18; TEMP 98.3; O2SAT 96
[2017-09-06] MEDS ORDERED: NIFE30TA61 PO (12:50)
[2017-09-06] MEDS ORDERED: METO25TA3 PO (12:50)
[2017-09-06] MEDS ORDERED: PRED5PAK PO (12:50)
[2017-09-06] MEDS ORDERED: CLIN300C5 PO (12:50)
[2017-09-06 15:55] VITALS: PULSE 62
--- NOTE | 2017-09-07 09:14 | HHI.DS ---
Discharge Summary Admission Date Sep 05, 2017 at 18:48 Discharge Date: Sep 06, 2017 Admitting Diagnosis SIRS, neck abscess (1) Sepsis ICD Code: A41.9 - Sepsis, unspecified organism (2) Neck mass ICD Code: R22.1 - Localized swelling, mass and lump, neck (3) Renal insufficiency ICD Code: N28.9 - Disorder of kidney and ureter, unspecified (4) Hypokalemia ICD Code: E87.6 - Hypokalemia (5) HTN (hypertension) ICD Code: I10 - Essential (primary) hypertension (6) Tobacco abuse ICD Code: Z72.0 - Tobacco use Procedures no invasive procedures. Brief History - From Admission This is a 72-year-old male with a PMH of HTN, Depression, CHF (Echok 11/24/15 w/ EF 55-60%), Tobacco Abuse and Prostate CA who presented to the ER w/ left neck mass and pain. States symptoms started acutely approx 3 days ago, noted worsening swelling/pain x2 days. Pain is constant, severe, 8/10, non- radiating. Denies difficulty swallowing or breathing. Does note subjective fever/chills at home. On arrival, BP 201/96, HR 100, O2 sat 96% on RA, Temp 101.6. WBC 15.4. Creatinine 2.19, WBC 2.65 on 04/16/17. Lactic Acid 1.9. UA pending. CXR with no acute findings. CT Neck w/ hyperdense fluid collection of left neck, pending official read by Radiologist. Dr. Baldwin consulted by ER physician, recommended IV Abx and Decadron IV. CBC/BMP: 09/06/17 0528 09/06/17 0528 Significant Findings Laboratory Tests Test 09/05/17 17:25 09/06/17 05:28 White Blood Count 15.4 TH/MM3 (4.0-11.0) 14.2 TH/MM3 (4.0-11.0) Red Blood Count 4.27 MIL/MM3 (4.50-5.90) 4.06 MIL/MM3 (4.50-5.90) Hemoglobin 10.8 GM/DL (13.0-17.0) 9.9 GM/DL (13.0-17.0) Hematocrit 34.0 % (39.0-51.0) 32.2 % (39.0-51.0) Mean Corpuscular Volume 79.5 FL (80.0-100.0) 79.3 FL (80.0-100.0) Mean Corpuscular Hemoglobin 25.3 PG (27.0-34.0) 24.4 PG (27.0-34.0) Mean Corpuscular Hemoglobin Concent 31.8 % (32.0-36.0) 30.8 % (32.0-36.0) Neutrophils (%) (Auto) 83.1 % (16.0-70.0) 92.8 % (16.0-70.0) Lymphocytes (%) (Auto) 3.3 % (9.0-44.0) 2.3 % (9.0-44.0) Monocytes (%) (Auto) 13.4 % (0.0-8.0) Neutrophils # (Auto) 12.8 TH/MM3 (1.8-7.7) 13.2 TH/MM3 (1.8-7.7) Lymphocytes # (Auto) 0.5 TH/MM3 (1.0-4.8) 0.3 TH/MM3 (1.0-4.8) Monocytes # (Auto) 2.1 TH/MM3 (0-0.9) Blood Urea Nitrogen 31 MG/DL (7-18) 35 MG/DL (7-18) Creatinine 2.92 MG/DL (0.60-1.30) 2.94 MG/DL (0.60-1.30) Random Glucose 134 MG/DL (74-106) 127 MG/DL (74-106) Albumin 3.3 GM/DL (3.4-5.0) 3.0 GM/DL (3.4-5.0) Calcium Level 8.2 MG/DL (8.5-10.1) Aspartate Amino Transf (AST/SGOT) 9 U/L (15-37) 8 U/L (15-37) Alanine Aminotransferase (ALT/SGPT) 11 U/L (12-78) 11 U/L (12-78) Potassium Level 3.4 MEQ/L (3.5-5.1) Chloride Level 112 MEQ/L (98-107) 112 MEQ/L (98-107) Estimat Glomerular Filtration Rate 26 ML/MIN (>89) 26 ML/MIN (>89) Carbon Dioxide Level 20.3 MEQ/L (21.0-32.0) Imaging Last Impressions Chest X-Ray 09/05/17 1717 Signed Impressions: Service Date/Time: Tuesday, September 05, 2017 17:34 - CONCLUSION: No acute cardiopulmonary disease. Frank Whitfield MD Neck CT 09/05/17 0000 Signed Impressions: Service Date/Time: Tuesday, September 05, 2017 18:08 - CONCLUSION: Haziness and edema involving the left side of the neck without focal abscess and the etiology is not certain. Frank Whitfield MD PE at Discharge GENERAL: patient sitting up in bed. Appears comfortable. Alert and oriented 3. SKIN: Warm and dry. HEAD: Normocephalic. EYES: No scleral icterus. No injection or drainage. NECK: Supple, trachea midline. No JVD. tenderness to palpation left neck. Patient says this is improved. No erythema. No loculation. CARDIOVASCULAR: Regular rate and rhythm without murmurs, gallops, or rubs. RESPIRATORY: Breath sounds equal bilaterally. No accessory muscle use. GASTROINTESTINAL: Abdomen soft, non-tender, nondistended. MUSCULOSKELETAL: No cyanosis, or edema. BACK: Nontender without obvious deformity. No CVA tenderness. Pt update on day of discharge patient says he is feeling much better. Reports pain much improved. Denies any chest pain or shortness of breath. Feels like going home. Hospital Course Patient presented with fever 101.6, tachycardia, leukocytosis of 15.4, creatinine increased to 2.[address] neck showed haziness and edema involving left-sided neck without focal abscess, uncertain etiology. Patient's symptoms of neck pain improved markedly with antibiotics and steroids. ENT was consulted, recommended discharge on antibiotics. Creatinine remained stable at 2.9. Patient was sent home with steroid taper as well. I have ordered follow-up with ENT as outpatient. Blood pressure is on be elevated in the 200s systolic. Discontinued lisinopril due to possibility of angioedema, and have placed on nifedipine and metoprolol. Pt Condition on Discharge: Good Discharge Disposition: Discharge Home Discharge Time: > 30 minutes Discharge Instructions DIET: Follow Instructions for: Heart Healthy Diet Activities you can perform: Regular-No Restrictions Follow up Referrals: Appointment for Follow Up - 1 Week with Jay Baldwin MD Appointment for Follow Up @ [facility] PCP Follow-up - 1 Week with Tory Zaragoza MD PCP Follow-up @ DR. Nurys ZARAGOZA New Medications: Clindamycin (Clindamycin) 300 Mg Cap 600 MG PO Q8H for Infection for 14 Days, #84 CAP 0 Refills Nifedipine ER 24 HR (Nifedipine ER 24 HR) 30 Mg Tab 30 MG PO DAILY for blood pressure, #30 TAB 0 Refills Prednisone (21) 5 mg tab Dose Pack (Prednisone (21) 5 mg tab Dose Pack) 5 Mg Dspk 5 MG PO DIRECTED for Inflammation, #1 DSPK 0 Refills Metoprolol Tartrate (Metoprolol Tartrate) 25 Mg Tab 25 MG PO Q12HR for Blood Pressure Management for 30 Days, TAB Discontinued Medications: Lisinopril (Lisinopril) 40 Mg Tab 40 MG PO BID for Blood Pressure Management, #30 TAB 0 Refills Josh Abreu MD Sep 07, 2017 09:14
== END 2017-09-06 14:53 | disposition home or self-care (01) | DRG 872 ==
LOC: NEPE 16:53 → NEDA 18:48 → N04B 19:33
PROVIDERS: ADMIT Internal Medicine; ATTEND Internal Medicine
DX: A41.9 Sepsis, unspecified organism (principal); I13.0 Hypertensive heart and chronic kidney disease with heart failure and stage 1 through stage 4 chronic kidney disease, or unspecified chronic kidney disease; I50.9 Heart failure, unspecified; N18.9 Chronic kidney disease, unspecified; E87.6 Hypokalemia; K11.21 Acute sialoadenitis; M19.90 Unspecified osteoarthritis, unspecified site; F32.9 Major depressive disorder, single episode, unspecified; Z72.0 Tobacco use; Z85.46 Personal history of malignant neoplasm of prostate; Z86.73 Personal history of transient ischemic attack (TIA), and cerebral infarction without residual deficits; Z88.0 Allergy status to penicillin
CPT/HCPCS: 70490; 71010; 80053; 83605; 85025; 87040; 96365; J1100; J3370; J7030; J7050

== ENCOUNTER 2018-10-17 12:10 | Inpatient (IN) ==
--- NOTE | 2018-10-17 12:24 | ED ---
HPI General Chief complaint: Chest Pain Stated complaint: Chest Pain Time Seen by Provider: 10/17/18 12:22 History of Present Illness HPI narrative: This is a 73-year-old male who presents for evaluation of cough, dyspnea, chest pain. Symptoms started 2 or 3 days ago. The cough is productive of yellow sputum. He reports the pain in the middle of his chest which is sharp and worse when coughing or breathing and deep. He reports some associated dyspnea, sore throat. Denies nausea, vomiting, abdominal pain, lower extremity edema. Symptoms are moderate. He received 2 sublingual nitroglycerin by EMS with no improvement. He received 324 mg of aspirin today. No other complaints. Per chart review he has a history of cardiomyopathy, AICD, hypertension, COPD, chronic kidney disease. 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 Overall he is a very poor historian. Related Data Home Medications Medication Instructions Recorded Confirmed hydrocodone-acetaminophen [[place]] 1 tab PO Q6H 10/17/18 10/17/18 labetalol 300 mg PO TID 10/17/18 10/17/18 Allergies Allergy/AdvReac Type Severity Reaction Status Date / Time penicillin G Allergy Severe RASH Verified 10/17/18 12:29 MRI PRECAUTION AdvReac Severe NON REVO Uncoded 09/05/17 17:07 PACEMAKER 07/13/13 Review of Systems ROS: all other systems reviewed are negative [facility] Medical History Medical History HTN (hypertension) (Acute) Pacemaker (Acute) Stroke (Acute) Social History Social History Substance History: No History of Abuse Second Hand Smoke Exposure: Yes Smoking Status: Current every day smoker Tobacco Type: Cigarettes How Often Do You Have a Drink Containing Alcohol: 2 to 3 times a week Recent Travel in [facility] within the Last 8 Weeks: No Recent Out of Country Travel within the Last 8 Weeks: No Exam Narrative Exam Narrative: GENERAL: This is an elderly male who is in no acute distress. SKIN: Warm and dry. HEAD: Atraumatic. Normocephalic. EYES: Pupils equal and round. No scleral icterus. No injection or drainage. ENT: No nasal bleeding or discharge. Mucous membranes pink and moist. NECK: Trachea midline. No JVD. CARDIOVASCULAR: Regular rate and rhythm. No murmur appreciated. RESPIRATORY: No accessory muscle use. Inspiratory and expiratory wheezing noted bilaterally. GASTROINTESTINAL: Abdomen soft, non-tender, nondistended. Hepatic and splenic margins not palpable. MUSCULOSKELETAL: No obvious deformities. No clubbing. No cyanosis. No edema. NEUROLOGICAL: Awake and alert. No obvious cranial nerve deficits. Motor grossly within normal limits. Normal speech. PSYCHIATRIC: Appropriate mood and affect; insight and judgment normal. Course Initial Documented Vital Signs Temperature 97.4 F L 10/17/18 12:21 Pulse Rate 66 10/17/18 12:21 Respiratory Rate 13 10/17/18 12:21 Blood Pressure 116/67 10/17/18 12:21 Pulse Oximetry 98 10/17/18 12:21 Last Documented Vital Signs Temperature 97.4 F L 10/17/18 12:21 Pulse Rate 68 10/17/18 13:07 Respiratory Rate 20 10/17/18 13:07 Blood Pressure 116/67 10/17/18 12:21 Pulse Oximetry 98 10/17/18 12:21 Medical Decision Making MDM Narrative Medical decision making narrative: This is a 73-year-old male who presents with a few days of cough, wheezing, some chest pain when he coughs and breathes in deep. On examination he has inspiratory and expiratory wheezing bilaterally. Hemodynamically stable. Not hypoxic or tachycardic. Received aspirin prior to arrival. The patient was placed on ECG monitor and pulse oximetry. Twelve- lead EKG was obtained revealing sinus rhythm, first-degree AV block, T wave inversions are noted throughout the inferior, anterior and lateral leads, unchanged from previous EKG on April 16, 2017. Lab work, chest x-ray ordered. The patient was given duo nebs and Solu-Medrol. He will be monitored closely. The patient's d-dimer is elevated. This was ordered in light of his sedentary lifestyle, pleuritic chest pain. His renal function will not allow for a CT pulmonary angiogram and therefore a ventilation perfusion scan has been ordered. Lab work notable for chronic renal insufficiency at baseline. Cardiac enzymes within normal limits. Chest x-ray reveals hyperinflation with no infiltrate, failure or pneumothorax. Ventilation perfusion scan reveals intermediate probability for pulmonary embolism. Therefore the patient will be started on heparin. He denies any melena, bright red blood per rectum. He has a stable hemoglobin. He will be admitted for further evaluation. D/W Dr. Oliva Medical Screen Exam Complete: Yes Emergency Medical Condition: Yes Differential Diagnosis Differential Diagnosis: COPD exacerbation, acute coronary syndrome, angina, pleurisy, bronchitis, pneumonia, pulmonary embolism Lab Data Result diagrams: 10/17/18 12:40 10/17/18 12:40 Lab Results 10/17/18 10/17/18 10/17/18 Range/Units 12:40 12:40 12:40 WBC 4.8 (4.0-11.0) th/mm3 RBC 3.65 L (4.50-5.90) mil/mm3 Hgb 10.3 L (13.0-17.0) gm/dL Hct 31.8 L (39.0-51.0) % MCV 87.1 (80.0-100.0) fL MCH 28.1 (27.0-34.0) pg MCHC 32.3 (32.0-36.0) % RDW 17.5 H (11.6-17.2) % Plt Count 185 (150-450) th/mm3 MPV 8.1 (7.0-11.0) fL Neut % (Auto) 61.5 (16.0-70.0) % Lymph % (Auto) 21.6 (9.0-44.0) % Kershaw % (Auto) 13.3 H (0.0-8.0) % Eos % (Auto) 2.3 (0.0-4.0) % Baso % (Auto) 1.3 (0.0-2.0) % Neut # (Auto) 3.0 (1.8-7.7) th/mm3 Lymph # (Auto) 1.0 (1.0-4.8) th/mm3 Kershaw # (Auto) 0.6 (0.0-0.9) th/mm3 Eos # (Auto) 0.1 (0.0-0.4) th/mm3 Baso # (Auto) 0.1 (0.0-0.2) th/mm3 WBC Differential . Differential Comment Auto diff final PT 10.2 (9.8-11.6) sec INR 1.0 Ratio APTT 26.4 (23.4-31.7) sec D-Dimer Quant (PE/DVT) (0.00-0.50) mg/L FEU Sodium 141 (136-145) meq/L Potassium 4.5 (3.5-5.1) meq/L Chloride 110 H (98-107) meq/L Carbon Dioxide 23.8 (21.0-32.0) meq/L Anion Gap 7 (5-15) meq/L BUN 42 H (7-18) mg/dL Creatinine 2.77 H (0.60-1.30) mg/dL Estimated GFR 28 L (>89) mL/min Random Glucose 87 (74-106) mg/dL Calcium 8.0 L (8.5-10.1) mg/dL Magnesium 2.3 (1.5-2.5) mg/dL Total Bilirubin 0.2 (0.2-1.0) mg/dL AST 15 (15-37) U/L ALT 14 (12-78) U/L Alkaline Phosphatase 52 (45-117) U/L Total Creatine Kinase 151 (39-308) U/L CK-MB (CK-2) 1.1 (0.5-3.6) ng/mL Troponin I Less than 0.02 L (0.02-0.05) ng/mL Total Protein 6.7 (6.4-8.2) g/dL Albumin 2.9 L (3.4-5.0) g/dL 10/17/18 Range/Units 12:40 WBC (4.0-11.0) th/mm3 RBC (4.50-5.90) mil/mm3 Hgb (13.0-17.0) gm/dL Hct (39.0-51.0) % MCV (80.0-100.0) fL MCH (27.0-34.0) pg MCHC (32.0-36.0) % RDW (11.6-17.2) % Plt Count (150-450) th/mm3 MPV (7.0-11.0) fL Neut % (Auto) (16.0-70.0) % Lymph % (Auto) (9.0-44.0) % Kershaw % (Auto) (0.0-8.0) % Eos % (Auto) (0.0-4.0) % Baso % (Auto) (0.0-2.0) % Neut # (Auto) (1.8-7.7) th/mm3 Lymph # (Auto) (1.0-4.8) th/mm3 K[place]haw # (Auto) (0.0-0.9) th/mm3 Eos # (Auto) (0.0-0.4) th/mm3 Baso # (Auto) (0.0-0.2) th/mm3 WBC Differential Differential Comment PT (9.8-11.6) sec INR Ratio APTT (23.4-31.7) sec D-Dimer Quant (PE/DVT) 0.83 H (0.00-0.50) mg/L FEU Sodium (136-145) meq/L Potassium (3.5-5.1) meq/L Chloride (98-107) meq/L Carbon Dioxide (21.0-32.0) meq/L Anion Gap (5-15) meq/L BUN (7-18) mg/dL Creatinine (0.60-1.30) mg/dL Estimated GFR (>89) mL/min Random Glucose (74-106) mg/dL Calcium (8.5-10.1) mg/dL Magnesium (1.5-2.5) mg/dL Total Bilirubin (0.2-1.0) mg/dL AST (15-37) U/L ALT (12-78) U/L Alkaline Phosphatase (45-117) U/L Total Creatine Kinase (39-308) U/L CK-MB (CK-2) (0.5-3.6) ng/mL Troponin I (0.02-0.05) ng/mL Total Protein (6.4-8.2) g/dL Albumin (3.4-5.0) g/dL Imaging Data Radiologist's impression: Chest X-Ray 10/17/18 12:33 CONCLUSION: Marked hyperinflation without pneumothorax or failure. Pulmonary Perfusion Imaging 10/17/18 13:32 CONCLUSION: 1. There are no ventilation/perfusion mismatches seen. However, there is segmental matched ventilatory and perfusion defects involving the posterior inferior lungs bilaterally. These matched defects, since they involve more than one segment and are seen more and more than one view, May this scan of intermediate probability for pulmonary embolism. Discharge Plan Discharge Disposition Patient Disposition: ED Admit(ED Internal Use Only) Discharge Condition Condition: Stable Discharge Details Diagnosis: Pleuritic chest pain, Pulmonary embolism Physicians Team ED Provider: Gatito Spencer ED Midlevel Provider: Katya,Ramón Primary Care Provider: UNKNOWN, Rxs /Orders / Referrals /Forms Prescriptions: No Action hydrocodone-acetaminophen [[place]] 10-325 mg Tablet 1 tab PO Q6H RF: 0 labetalol 300 mg Tablet 300 mg PO TID RF: 0 Discharge Instructions Patient Printed Instructions: Chest Pain (ED) Discharge Interventions Interventions: Vital Signs Last Done: 10/17/18 12:29 Status ED Status: With Doctor
[2018-10-17] MEDS ORDERED: MethylPREDNISolone Sod Succinate Inj 125 MG/2 ML Vial IV.PUSH ONE (12:33)
[2018-10-17 13:06] LABS: Baso # (Auto) 0.1 th/mm3 (0.0-0.2); Baso % (Auto) 1.3 % (0.0-2.0); Eos # (Auto) 0.1 th/mm3 (0.0-0.4); Eos % (Auto) 2.3 % (0.0-4.0); Hematocrit 31.8 % (39.0-51.0); Hemoglobin 10.3 gm/dL (13.0-17.0); Lymph % (Auto) 21.6 % (9.0-44.0); Mean Corpuscular HGB Conc 32.3 % (32.0-36.0); Mean Corpuscular Hemoglobin 28.1 pg (27.0-34.0); Mean Corpuscular Volume 87.1 fL (80.0-100.0); Mean Platelet Volume 8.1 fL (7.0-11.0); Mono # (Auto) 0.6 th/mm3 (0.0-0.9); Mono % (Auto) 13.3 % (0.0-8.0); Neut % (Auto) 61.5 % (16.0-70.0); Platelet Count 185 th/mm3 (150-450); Red Blood Count 3.65 mil/mm3 (4.50-5.90); Red Cell Distribution Width 17.5 % (11.6-17.2); White Blood Count 4.8 th/mm3 (4.0-11.0)
[2018-10-17 13:20] LABS: Activated Partial Thrombo Time 26.4 sec (23.4-31.7); Prothrombin Time 10.2 sec (9.8-11.6)
[2018-10-17 13:22] LABS: Albumin 2.9 g/dL (3.4-5.0); Anion Gap 7 meq/L (5-15); Aspartate Aminotransferase 15 U/L (15-37); Blood Urea Nitrogen 42 mg/dL (7-18); Carbon Dioxide 23.8 meq/L (21.0-32.0); Chloride 110 meq/L (98-107); Glomerular Filtration Rate 28 mL/min (>89); Glucose,Random 87 mg/dL (74-106); Magnesium 2.3 mg/dL (1.5-2.5); Potassium 4.5 meq/L (3.5-5.1); Sodium 141 meq/L (136-145)
[2018-10-17 13:42] LABS: Alanine Aminotransferase 14 U/L (12-78); Alkaline Phosphatase 52 U/L (45-117); Creatine Kinase 151 U/L (39-308); Total Protein 6.7 g/dL (6.4-8.2)
--- NOTE | 2018-10-17 13:47 | XR ---
EXAM DATE: 10/17/2018 1:41 PM EST AGE/SEX: 73 years / Male INDICATIONS: Chest pain and shortness of breath. CLINICAL DATA: This is the patient's initial encounter. Patient reports that signs and symptoms have been present for 1 day and indicates a pain score of 6/10. MEDICAL/SURGICAL HISTORY: Stroke. Chronic obstructive pulmonary disease. Prostatectomy. Pacem popeye. COMPARISON: [facility], CHEST SINGLE AP, 09/05/2017. . FINDINGS: Pacemaker is implanted in the left chest. Marked hyperinflation. There is no pneumothorax. There is n o alveolar consolidation pleural effusion or pneumothorax. The portion of the bony skeleton visualized is unremarkable. CONCLUSION: Marked hyperinflation without pneumothorax or failure. Electronically signed by: Dominic Hutson MD Board Certified Radiologist 10/17/2018 1:46 PM EST
[2018-10-17 14:05] LABS: Creatine Kinase MB 1.1 ng/mL (0.5-3.6)
--- NOTE | 2018-10-17 15:16 | NM ---
EXAM DATE: 10/17/2018 3:01 PM EST AGE/SEX: 73 years / Male INDICATIONS: Dyspnea. CLINICAL DATA: This is the patient's initial encounter. Patient reports that signs and symptoms have been present for 1 day and indicates a pain score of 0/10. MEDICAL/SURGICAL HISTORY: Hypertension. Pacemaker. COMPARISON: [facility], CHEST 1V SINGLE AP, 10/17/2018. . DOSE: 1.7 mCi Tc99m DTPA aerosol 8.5 mCi Tc99m MAA IV TECHNIQUE: Following five minutes of tidal breathing of DTPA aerosol, planar images of the lungs wer e performed in eight projections. The patient was then injected with MAA, and eight-view perfusion s can was performed. FINDINGS: The ventilation scan demonstrates absent ventilation to the posterior inferior lower lungs bilaterall y, seen on both the posterior oblique and lateral views. There is some central deposition of aerosol in the hypopharyngeal airway. On the perfusion lung scan, there is a matched absence of perfusion to the posterior inferior lower l ungs, similar in size and configuration when compared to the ventilation scan. No ventilation/perfusi on mismatches seen. Chest x-ray demonstrates the lungs to be clear without focal infiltrates. There are some horizontal l inear interstitial densities in the lower right lung. CONCLUSION: 1. There are no ventilation/perfusion mismatches seen. However, there is segmental matched ventilato ry and perfusion defects involving the posterior inferior lungs bilaterally. These matched defects, s cierra they involve more than one segment and are seen more and more than one view, May this scan of in termediate probability for pulmonary embolism. Electronically signed by: Haris Blanc MD Board Certified Radiologist 10/17/2018 3:15 PM EST
[2018-10-17] MEDS ORDERED: Heparin 10,000 UNITS/10 ML Vial (for IV use) IV.PUSH STA (15:29)
[2018-10-17] MEDS ORDERED: Acetaminophen 325 MG Tablet PO PRN (15:58)
[2018-10-17] MEDS: Heparin Drip 25,000 UNIT/250 ML BAG IV.CONT PRN (16:02)
--- NOTE | 2018-10-17 17:59 | P.HPIM ---
History of Present Illness Primary Care Physician: UNKNOWN Chief Complaint: Feeling sick History of Present Illness: The patient is a 73-year-old male with history of hypertension and stroke who is presenting to the hospital after having a fall. The patient says that over the past week he has been feeling sick. He says that his voice has become hoarse all of a sudden. He also has been endorsing a cough with yellow mucus production. He says that he has been having intermittent chest pain for the past month or so. He says the chest pain comes and goes. It is not associated with activity. He does not get worse with deep breathing. He rates it as a 7 out of 10 in severity. He says that the chest pain is located in the left upper chest but sometimes affects the right upper chest. He says that today he fell down and his friend called an ambulance for him. The patient states that he had a stroke about 1 month ago and he developed left-sided weakness in the upper and lower extremities. He also developed facial droop. He says he has been taking a baby aspirin. He states that he has been feeling sluggish recently. He also feels like there is a part of his throat that feels strange to him. He does not have any difficulty swallowing and has not had episodes of choking. Inpatient Certification Inpatient Certification: I certify that the inpatient services were ordered in accordance with Medicare regulations governing the order. This includes certification that hospital inpatient services are reasonable and necessary and in the case of services not specified as inpatient-only under 42 CFR 419.22(n), that they are appropriately provided as inpatient services in accordance to with the 2-midnight benchmark under 43 CFR 412.3(e) Estimated Total Length of Stay (Days): 2 Plans for Post Hospital Care: Not yet determined Review of Systems Review of Systems: all other systems reviewed are negative [facility] Medical History Medical History Chronic renal disease (Acute) Chronic systolic heart failure (Acute) HTN (hypertension) (Acute) Pacemaker (Acute) Stroke (Acute) Family History Family History Other Diabetes Hypertension Social History Social History Substance History: No History of Abuse Second Hand Smoke Exposure: Yes Smoking Status: Current every day smoker Tobacco Type: Cigarettes How Often Do You Have a Drink Containing Alcohol: 2 to 3 times a week Recent Travel in [facility] within the Last 8 Weeks: No Recent Out of Country Travel within the Last 8 Weeks: No Immunization History Tetanus Immunization: Unsure Medications and Allergies Allergies Allergy/AdvReac Type Severity Reaction Status Date / Time penicillin G Allergy Severe RASH Verified 10/17/18 12:29 MRI PRECAUTION AdvReac Severe NON REVO Uncoded 09/05/17 17:07 PACEMAKER 07/13/13 Home Medications Medication Instructions Recorded Confirmed Type hydrocodone-acetaminophen [[place]] 1 tab PO Q6H 10/17/18 10/17/18 History labetalol 300 mg PO TID 10/17/18 10/17/18 History Active Medications: Active Medications Acetaminophen (Tylenol) 650 mg PO Q4H PRN PRN Reason: Temp > 100.4, pain 1-2 Hydrocodone Bitart/Acetaminophen ([place] 5/325) 1 tab PO Q6H PRN PRN Reason: pain 3-10 Albuterol (Duoneb Neb (Prn)) 1 ampul NEB Q2HR NEB PRN PRN Reason: DYSPNEA Clonidine HCl (Catapres) 0.1 mg PO Q6H PRN PRN Reason: SBP> OR = 180, DBP> OR = 100 Heparin Sodium/Dextrose (Heparin/D5w 25,000 U/250 Ml) 25,000 unit in 250 mls @ 0 mls/hr IV.CONT TITRATE PRN; Protocol PRN Reason: Per Protocol Last Admin: 10/17/18 16:02 Dose: 1,400 units/hr, 14 mls/hr Labetalol HCl (Trandate) 300 mg PO BID EWELINA Ondansetron HCl (Zofran Inj) 4 mg IV.PUSH Q6H PRN PRN Reason: NAUSEA OR VOMITING Senna/Docusate Sodium (Faviola-Colace) 1 tab PO BID EWELINA Sodium Chloride (Ns Flush) 2 ml IV.FLUSH BID EWELINA Sodium Chloride (Ns Flush) 2 ml IV.FLUSH PRN PRN PRN Reason: FLUSH AFTER USING IV ACCESS Physical Exam Vital signs: Vital Signs 10/17/18 12:21 10/17/18 13:07 10/17/18 16:50 Temperature 97.4 F L Pulse Rate 66 68 61 Respiratory Rate 13 20 20 Blood Pressure 116/67 196/98 H Pulse Oximetry 98 98 Intake & Output 10/16/18 10/17/18 10/17/18 18:59 06:59 18:59 Weight 79.379 kg Narrative: GENERAL: This is an elderly male who is in no acute distress. SKIN: Warm and dry. Pacemaker in left upper chest. HEAD: Atraumatic. Normocephalic. EYES: Pupils equal and round. No scleral icterus. No injection or drainage. ENT: No nasal bleeding or discharge. Mucous membranes pink and moist. Hoarse voice. NECK: Trachea midline. No JVD. CARDIOVASCULAR: Regular rate and rhythm. No murmur appreciated. RESPIRATORY: No accessory muscle use. Inspiratory and expiratory wheezing noted bilaterally. GASTROINTESTINAL: Abdomen soft, non-tender, nondistended. Hepatic and splenic margins not palpable. MUSCULOSKELETAL: No obvious deformities. No clubbing. No cyanosis. No edema. NEUROLOGICAL: Awake and alert. Mild facial droop appreciated. Left-sided weakness. Results Labs CBC & Chem 7: 10/17/18 12:40 10/17/18 12:40 Imaging Impressions Chest X-Ray 10/17/18 12:33 CONCLUSION: Marked hyperinflation without pneumothorax or failure. Pulmonary Perfusion Imaging 10/17/18 13:32 CONCLUSION: 1. There are no ventilation/perfusion mismatches seen. However, there is segmental matched ventilatory and perfusion defects involving the posterior inferior lungs bilaterally. These matched defects, since they involve more than one segment and are seen more and more than one view, May this scan of intermediate probability for pulmonary embolism. Caprini VTE Risk Assessment Caprini VTE Risk Assessment: Moderate/High Risk (score >= 2) Caprini Risk Assessment Model: Point Value = 1 Point Value = 2 Point Value = 3 Point Value = 5 Age 41-60 Minor surgery BMI > 25 kg/m2 Swollen legs Varicose veins or History of unexplained or recurrent spontaneous Oral contraceptives or hormone replacement Sepsis (< 1 month) Serious lung disease, including pneumonia (< 1 month) Abnormal pulmonary function Acute myocardial infarction Congestive heart failure (< 1 month) History of inflammatory bowel disease Medical patient at bed rest Age 61-74 Arthroscopic surgery Major open surgery (> 45 min) Laparoscopic surgery (> 45 min) Malignancy Confined to bed (> 72 hours) Immobilizing plaster cast Central venous access Age >= 75 History of VTE Family history of VTE Factor V Leiden Prothrombin [id number] Lupus anticoagulant Anticardiolipin antibodies Elevated serum homocysteine Heparin-induced thrombocytopenia Other congenital or acquired thrombophilia Stroke (< 1 month) Elective arthroplasty Hip, pelvis, or leg fracture Acute spinal cord injury (< 1 month) Prophylaxis Regimen: Total Risk Factor Score Risk Level Prophylaxis Regimen 0-1 Low Early ambulation 2 Moderate Order ONE of the following: *Sequential Compression Device (SCD) *Heparin 5000 units SQ BID 3-4 Higher Order ONE of the following medications: *Heparin 5000 units SQ TID *Enoxaparin/Lovenox 40 mg SQ daily (WT < 150 kg, CrCl > 30 mL/min) *Enoxaparin/Lovenox 30 mg SQ daily (WT < 150 kg, CrCl > 10-29 mL/min) *Enoxaparin/Lovenox 30 mg SQ BID (WT < 150 kg, CrCl > 30 mL/min) AND/OR *Sequential Compression Device (SCD) 5 or more Highest Order ONE of the following medications: *Heparin 5000 units SQ TID (Preferred with Epidurals) *Enoxaparin/Lovenox 40 mg SQ daily (WT < 150 kg, CrCl > 30 mL/min) *Enoxaparin/Lovenox 30 mg SQ daily (WT < 150 kg, CrCl > 10-29 mL/min) *Enoxaparin/Lovenox 30 mg SQ BID (WT < 150 kg, CrCl > 30 mL/min) AND *Sequential Compression Device (SCD) Assessment and Plan Plan Pulmonary embolism The patient had a positive d-dimer and V/Q scan was intermediate probability for pulmonary embolism, although no ventilation/perfusion mismatches were noted. Unable to go for CTA s/t renal disease. The patient was started on a heparin drip in the emergency department. He is saturating well on room air. -Continue heparin drip for now. -Check venous Doppler of the lower extremities as V/Q scans have been known to be erroneous in the setting of lung disease. Cough/? COPD exacerbation The patient has a cough with mucus production. Also has a 50-year smoking history. Chest x-ray not indicative of an infection. Has wheezing on exam. -Repeat chest x-ray PA/lateral in the morning. -Oxygen and nebs as needed. -Smoking cessation instruction. -Start IV doxycycline. -steroids if needed. -incentive spirometry. Chest pain Likely s/t above. Reproducible on exam. Initial trop negative. EKG appears unchanged. -trend trops. -telemetry. -pain control as needed. Hypertensive urgency/chronic CHF Blood pressure uncontrolled. Appears euvolemic. -resume labetalol. -add amlodipine and adjust as needed. -clonidine as needed. -telemetry. CVA Pt states he developed left sided weakness form the CVA about one month ago. -continue ASA. -PT eval. -check lipid profile, A1c. Chronic renal disease Appears to be at baseline. -avoid nephrotoxins and monitor. PPx: Heparin gtt Code Status: Full
[2018-10-17] MEDS: amLODIPine 5 MG Tablet PO SCH (18:43)
[2018-10-17 19:26] LABS: HDL Cholesterol 49.9 mg/dL (40.0-60.0)
[2018-10-17 20:53] LABS: Hemoglobin A1c 5.8 % (4.3-6.0)
--- NOTE | 2018-10-17 21:44 | US ---
EXAM DATE: 10/17/2018 9:42 PM EST AGE/SEX: 73 years / Male INDICATIONS: Bilateral leg swelling. CLINICAL DATA: This is the patient's initial encounter. Patient reports that signs and symptoms have been present for 1 week and indicates a pain score of 2/10. MEDICAL/SURGICAL HISTORY: Hypertension. Chronic renal disease. Stroke. Pacemaker. COMPARISON: No prior exams available for comparison. TECHNIQUE: Venous ultrasound of both lower extremities was performed from the inguinal ligament to t he proximal calf. Real-time, color Doppler and spectral tracing, compression and augmentation techni ques were used. FINDINGS: Right Leg: Normal compression of the deep venous system from the inguinal region to the proximal tin f. No echogenic clot is seen. Normal response of the venous system to augmentation and respiration. Left Leg: Normal compression of the deep venous system from the inguinal region to the proximal calf . No echogenic clot is seen. Normal response of the venous system to augmentation and respiration. Other: None. CONCLUSION: 1. The study is negative for bilateral lower extremity deep venous thrombosis. Electronically signed by: Jay Duval MD Board Certified Radiologist 10/17/2018 9:43 PM EST
[2018-10-17] MEDS: Senna/Docusate Sodium 8.6/50 MG Tablet PO SCH (21:55)
[2018-10-18 08:23] LABS: Baso % (Auto) 0.1 % (0.0-2.0); Hematocrit 32.5 % (39.0-51.0); Hemoglobin 10.5 gm/dL (13.0-17.0); Lymph # (Auto) 0.5 th/mm3 (1.0-4.8); Lymph % (Auto) 8.2 % (9.0-44.0); Mean Corpuscular HGB Conc 32.3 % (32.0-36.0); Mean Corpuscular Hemoglobin 27.4 pg (27.0-34.0); Mean Corpuscular Volume 84.9 fL (80.0-100.0); Mean Platelet Volume 8.4 fL (7.0-11.0); Mono # (Auto) 0.2 th/mm3 (0.0-0.9); Mono % (Auto) 3.2 % (0.0-8.0); Neut # (Auto) 5.2 th/mm3 (1.8-7.7); Neut % (Auto) 88.5 % (16.0-70.0); Platelet Count 215 th/mm3 (150-450); Red Blood Count 3.83 mil/mm3 (4.50-5.90); Red Cell Distribution Width 16.9 % (11.6-17.2); White Blood Count 5.8 th/mm3 (4.0-11.0)
[2018-10-18 08:38] LABS: Activated Partial Thrombo Time 71.8 sec (23.4-31.7); Prothrombin Time 10.3 sec (9.8-11.6)
[2018-10-18 08:48] LABS: Anion Gap 7 meq/L (5-15); Aspartate Aminotransferase 12 U/L (15-37); Blood Urea Nitrogen 49 mg/dL (7-18); Calcium 8.3 mg/dL (8.5-10.1); Carbon Dioxide 23.5 meq/L (21.0-32.0); Chloride 109 meq/L (98-107); Glomerular Filtration Rate 27 mL/min (>89); Glucose,Random 119 mg/dL (74-106); Potassium 5.2 meq/L (3.5-5.1); Sodium 139 meq/L (136-145)
[2018-10-18 08:50] LABS: Alanine Aminotransferase 15 U/L (12-78)
[2018-10-18 08:52] LABS: Alkaline Phosphatase 50 U/L (45-117); Total Protein 7.1 g/dL (6.4-8.2)
--- NOTE | 2018-10-18 08:53 | XR ---
EXAM DATE: 10/18/2018 8:44 AM EST AGE/SEX: 73 years / Male INDICATIONS: . Shortness of breath and chest pain. CLINICAL DATA: This is the patient's subsequent encounter. Patient reports that signs and symptoms h ave been present for 1 week and indicates a pain score of 6/10. MEDICAL/SURGICAL HISTORY: Hypertension. Stroke. Pacemaker. COMPARISON: [facility] [place], CHEST 1V SINGLE AP, 10/17/2018. . FINDINGS: There is slight atelectasis left upper lobe posteriorly not present previously. The rest of the examination has not changed. CONCLUSION: Slight left upper lobe atelectasis. Electronically signed by: Hilda Whitfield MD Board Certified Radiologist 10/18/2018 8:52 AM EST
[2018-10-18] MEDS: amLODIPine 5 MG Tablet PO SCH (09:09)
[2018-10-18] MEDS: Senna/Docusate Sodium 8.6/50 MG Tablet PO SCH ×2 (09:10→20:38)
--- NOTE | 2018-10-18 11:05 | P.PNIM ---
Subjective Interval history: Follow-up PE/intermediate positive VQ scan/odynophagia October 18, 2018-patient seen and examined, complains of odynophagia however denies any dysphagia above liquid and solid. Denies any significant shortness of breath. Physical Exam Vital signs: Vital Signs 10/17/18 12:21 10/17/18 13:07 10/17/18 16:50 Temperature 97.4 F L Pulse Rate 66 68 61 Respiratory Rate 13 20 20 Blood Pressure 116/67 196/98 H Pulse Oximetry 98 98 10/17/18 18:04 10/17/18 18:24 10/17/18 19:45 Temperature 97.6 F 97.2 F L Pulse Rate 64 64 66 Respiratory Rate 15 20 17 Blood Pressure 175/88 H 187/86 H 142/78 H Pulse Oximetry 97 99 99 10/17/18 20:00 10/18/18 00:00 10/18/18 04:00 Temperature 97.9 F Pulse Rate 62 64 63 Respiratory Rate 20 Blood Pressure 139/72 Pulse Oximetry 97 10/18/18 04:35 10/18/18 08:00 Temperature 98.2 F 98.1 F Pulse Rate 62 67 Respiratory Rate 16 20 Blood Pressure 140/70 148/72 H Pulse Oximetry 95 96 Intake & Output 10/17/18 10/18/18 10/18/18 18:59 06:59 18:59 Intake Total 100 / 100 240 / 240 Output Total 300 / 300 Balance 100 / 100 -60 / -60 Weight 79.379 kg Intake: IV 100 / 100 Doxy 100 Inj 100 MG In NS Inj 100 / 100 100 ML @ 100 mls/hr IV.SIG Q12H EWELINA Rx#:[id number] Oral 240 / 240 Output: Urine 300 / 300 Other: # Voids 2 Narrative: GENERAL: This is an elderly male who is in no acute distress. SKIN: Warm and dry. Pacemaker in left upper chest. HEAD: Atraumatic. Normocephalic. EYES: Pupils equal and round. No scleral icterus. No injection or drainage. ENT: No nasal bleeding or discharge. Mucous membranes pink and moist. Hoarse voice. NECK: Trachea midline. No JVD. CARDIOVASCULAR: Regular rate and rhythm. No murmur appreciated. RESPIRATORY: No accessory muscle use. Inspiratory and expiratory wheezing noted bilaterally. GASTROINTESTINAL: Abdomen soft, non-tender, nondistended. Hepatic and splenic margins not palpable. MUSCULOSKELETAL: No obvious deformities. No clubbing. No cyanosis. No edema. NEUROLOGICAL: Awake and alert. Mild facial droop appreciated. Left-sided weakness. Results Labs CBC & Chem 7: 10/18/18 07:16 10/18/18 07:16 Imaging Imaging: Impressions Venous Doppler Study 10/17/18 00:00 CONCLUSION: 1. The study is negative for bilateral lower extremity deep venous thrombosis. Chest X-Ray 10/17/18 12:33 CONCLUSION: Marked hyperinflation without pneumothorax or failure. Pulmonary Perfusion Imaging 10/17/18 13:32 CONCLUSION: 1. There are no ventilation/perfusion mismatches seen. However, there is segmental matched ventilatory and perfusion defects involving the posterior inferior lungs bilaterally. These matched defects, since they involve more than one segment and are seen more and more than one view, May this scan of intermediate probability for pulmonary embolism. Chest X-Ray 10/18/18 06:00 CONCLUSION: Slight left upper lobe atelectasis. Assessment and Plan Plan 73-year-old man with Pulmonary embolism The patient had a positive d-dimer and V/Q scan was intermediate probability for pulmonary embolism, although no ventilation/perfusion mismatches were noted. Unable to go for CTA s/t renal disease. -Consult pulmonology and hematology -Continue heparin drip for now. Maintain oxygen saturation above 92% -Check venous Doppler of the lower extremities as V/Q scans have been known to be erroneous in the setting of lung disease. Cough/? COPD exacerbation The patient has a cough with mucus production. Also has a 50-year smoking history. -Maintain oxygen saturation above 92% -Smoking cessation instruction. - IV doxycycline. -Start prednisone 20 mg daily, DuoNeb as needed -incentive spirometry. Odynophagia -consider UGI series and GI consultation PRN Chest pain-resolved Likely s/t above. Reproducible on exam. -trend trops. -telemetry. -pain control as needed. Hypertensive urgency/chronic CHF Blood pressure uncontrolled. Appears euvolemic. -Continue labetalol, amlodipine and adjust as needed. -clonidine as needed. CVA Pt states he developed left sided weakness form the CVA about one month ago. -continue ASA. -PT eval. Chronic renal disease Appears to be at baseline. -avoid nephrotoxins and monitor. PPx: Heparin gtt Code Status: Full
--- NOTE | 2018-10-18 12:48 | ECG ---
Date Performed: 10/17/2018 Time Performed: 12:33:21 PTAGE: 73 years EKG: Sinus rhythm WITH FIRST DEGREE AV BLOCK POSSIBLE RIGHT VENTRICULAR CONDUCTION DELAY LEFT ANTERIOR FASCICULAR BLOC K SEPTAL MYOCARDIAL INFARCTION MODERATE T-WAVE ABNORMALITY, CONSIDER ANTEROLATERAL ISCHEMIA MODERATE T-WAVE ABNORMALITY, CONSIDER INFERIOR ISCHEMIA ABNORMAL ECG NO PREVIOUS TRACING DOCTOR: Konstantin Dhillon Interpretating Date/Time 10/18/2018 12:39:54
--- NOTE | 2018-10-18 13:42 | MB ---
cc: Jaret Valle MD DATE: 10/18/2018 REASON FOR CONSULTATION: Pulmonary management. HISTORY OF PRESENT ILLNESS: The patient is a 73-year-old male with past medical history of chronic kidney disease, hypertension, previous pacemaker placement, CVA, who presented to [facility] ED status post fall on 10/17/2018. The patient was found to have mild elevation in D-dimer at 0.83 and underwent a V/Q scan of the chest which showed intermediate probability for pulmonary embolism. A Doppler ultrasound of lower extremity was negative for DVT. Also, he had a chest x-ray, which showed mild atelectasis. The patient was started on a heparin drip and pulmonary medicine was consulted for pulmonary management. When seen, he is on room air oxygen. The patient denies any chest pain, shortness of breath, fever or any constitutional symptoms. He reports a productive cough with yellow phlegm. The patient's active smoker with a [id number] history of smoking. He denies any use of oxygen at home. He denies any history of chronic thromboembolism. The patient denies any nausea, vomiting or abdominal pain. In addition, he denies any orthopnea, PND, or edema of lower extremities. PAST MEDICAL HISTORY: Significant for chronic kidney disease, systolic heart failure, hypertension, CVA. PAST SURGICAL HISTORY: Previous pacemaker placement, prostate surgery. FAMILY HISTORY: Diabetes mellitus and hypertension runs in the family. ALLERGIES: PENICILLIN. SOCIAL HISTORY: Active smoker with [id number] history of smoking. Nondrinker. ACTIVE MEDICATIONS: Include: 1. Doxycycline. 2. Aspirin. 3. Norvasc. 4. Prednisone. REVIEW OF SYSTEMS: As per HPI, rest of review of systems is unremarkable. PHYSICAL EXAMINATION: GENERAL: A 73-year-old male lying in bed in no acute distress. VITAL SIGNS: Afebrile. Temperature 98.7, pulse 60, respiratory rate 20, blood pressure 144/73, saturation 96% on room air. HEENT: Atraumatic, normocephalic. Pupils are equal, round, reactive to light and accommodation. Extraocular muscles intact. Conjunctivae pink. Nonicteric sclerae. Oral mucosa within normal. NECK: Supple. No JVD. No thyromegaly. Trachea midline. CARDIOVASCULAR: Regular rate and rhythm. Normal S1, S2. No murmurs, rubs or gallops noted. PULMONARY: Bilateral equal air entry. No rales or wheezing. ABDOMEN: Soft, nontender. No distention. Positive bowel sounds. EXTREMITIES: No cyanosis, clubbing, edema. NEUROLOGIC: No focal sensory deficit. LABORATORY DATA: WBC 5.8, hemoglobin 10, hematocrit 32, platelet count of 215. Sodium 139, potassium 5.2, chloride 109, CO2 of 23, BUN 49, creatinine 2.78, glucose of 119. Troponin less than 0.02 x3 sets. RADIOGRAPHIC STUDIES; VQ scan on 10/17/2018 showed intermediate probability for pulmonary embolism. Abdominal ultrasound of lower extremity negative for DVT. Chest x-ray showed atelectasis. IMPRESSION: 1. Intermediate probability for pulmonary embolism. V/Q scan findings could be also related to obstructive lung disease. 2. Acute on chronic kidney disease. 3. Active tobacco use. 4. Hypertension. 5. CVA. 6. Anemia of chronic disease. 7. Systolic heart failure. RECOMMENDATIONS: 1. Oxygen p.r.n. to maintain sats above 92%. 2. Bronchodilators placed on DuoNeb q.6 h plus q.2 h p.r.n. for shortness of breath and will add Symbicort 160/4.5 b.i.d. 3. Continue with prednisone at 20 mg daily. 4. BiPAP p.r.n. for respiratory distress. 5. Continue with antibiotics. He is on doxycycline 100 mg IV q.12 h. Check sputum culture with Gram stain. 6. Continue with heparin drip for now. Monitor PTT per protocol. 7. We will obtain 2-D echo to evaluate LV function and rule out RV strain. 8. Continue with antihypertensive medication. The patient is on aspirin, Norvasc. 9. Gastrointestinal and deep venous thrombosis prophylaxis. The patient is on heparin drip. 10. Further recommendations will be based on hospital course. Thank you for this consultation and allowing us to participate in this patient's care. MD CAR Davis/samir/aristeo , 01:00 PM , 01:10 PM
[2018-10-18] MEDS: Budesonide-Formoterol 160/4.5 MCG 6 GM Inhaler INH SCH ×2 (16:00→20:36)
--- NOTE | 2018-10-18 16:22 | MB ---
cc: José Leyva MD DATE: 10/18/2018 ATTENDING PHYSICIAN: Dr. Chandan Toure. REASON FOR CONSULTATION: Hematology concerns. Opinion regarding patient with indeterminate V/Q scan. HISTORY OF PRESENT ILLNESS: The patient is a very pleasant 73-year-old male who presented to the hospital after a fall. He had a stroke about a month ago and has had left-sided weakness. He states that he has not been feeling well since the stroke. He has left-sided weakness. He has had dysphonia and a cough since the stroke, is occasionally bringing up some yellowish sputum. He denies any chest pain. He has dyspnea on exertion. He denies any fever or chills. He has lost about 25 pounds since the stroke. He denies any visual changes. He has occasional headache. He denies any palpitations. He has no nausea or vomiting. He has abdominal pain. No change in urinary habits. At presentation, a chest x-ray showed left upper lobe atelectasis. He had a V/Q scan, which did not show any ventilation-perfusion mismatch; however, there were several segmental match defects and the scan was intermediate probability for pulmonary embolism. He was started on heparin. He has no lower extremity edema. Doppler ultrasound did not show any deep venous thrombosis. PAST MEDICAL HISTORY: Recent stroke, congestive heart failure, chronic kidney disease, hypertension, prostate cancer. PAST SURGICAL HISTORY: Prostatectomy about 3 years ago, pacemaker placement. FAMILY HISTORY: Diabetes and hypertension. No blood clots in the family. He has 4 children, all healthy. SOCIAL HISTORY: Smoker for at least 30 years, now down to half a pack a day. He drinks occasionally. He lives alone. ALLERGIES: PENICILLIN. CURRENT MEDICATIONS: 1. DuoNebs. 2. Norvasc. 3. Aspirin. 4. Symbicort. 5. Doxycycline 6. Afrin. 7. Labetalol. 8. Prednisone. REVIEW OF SYSTEMS: CONSTITUTIONAL: As above. EYES: Negative. ENT: Negative. CARDIOVASCULAR: As above. RESPIRATORY: As above. GASTROINTESTINAL: Negative. GENITOURINARY: Negative. MUSCULOSKELETAL: As above. ENDOCRINE: Negative. HEMATOLOGIC: Negative. DERMATOLOGY: Negative. PSYCHIATRIC: Negative. NEUROLOGIC: As above. PHYSICAL EXAMINATION: VITAL SIGNS: Temperature 98.7, blood pressure 144/73, O2 saturation 100% on room air. GENERAL: He is alert, oriented x3, in no acute distress, a little cachectic. HEENT: Atraumatic, normocephalic. Pupils equal, round, reactive to light. Extraocular muscles intact. No scleral icterus. Oropharynx with dry mucosa. No lesion. NECK: No thyromegaly. No palpable mass. LYMPHATIC: No palpable cervical, clavicular, axillary or inguinal lymphadenopathy. CARDIOVASCULAR: Regular. S1, S2. No murmur. CHEST: Basilar crackles. Distant breath sounds. No significant wheezes. ABDOMEN: Soft, nontender. No palpable mass. EXTREMITIES: No cyanosis, no edema, no calf tenderness. SKIN: No rash or petechiae. NEUROLOGIC: Left-sided weakness. ASSESSMENT AND PLAN: 1. Intermediate probability of pulmonary embolism. He had a V/Q scan, which showed no ventilation-perfusion mismatch; however, there were several segmental matched ventilation-perfusion defects and it was intermediate probability for pulmonary embolism. The patient was started on heparin. The patient has no personal history or family history of thrombosis. He has no chest pain. He has had a cough and mild dyspnea on exertion since his stroke about a month ago. D-dimer is slightly elevated. Clinically, this does not appear to be a pulmonary embolism. He had a bilateral lower extremity Doppler, which was negative for DVT. The patient, however, has history of prostate cancer and had no followup recently. He also lost significant amount of weight, which is unexplained. I am going to get a CT without contrast to see if there is any occult malignancy and check a PSA. If it is negative, then could consider stopping the anticoagulation. 2. Constitutional symptoms with a 25-pound weight loss. This may be due to his recent stroke, but will proceed with further workup as above. 3. Recent stroke with left-sided weakness. He is on aspirin. 4. Chronic obstructive pulmonary disease. 5. Congestive heart failure. 6. Chronic kidney disease. 7. Hypertension. RECOMMENDATIONS: 1. Check CT without contrast. 2. Check a PSA. 3. Can consider stopping anticoagulation if the workup is unremarkable, unless pulmonology feels that it is necessary that he stay on anticoagulation. Thank you for asking me to see this patient. MD KAY Sawant/emmy/aristeo Harris: 10/18/2018, 02:42 PM , 02:57 PM SAMANTHA
--- NOTE | 2018-10-18 16:41 | ECHRPT ---
Indication: CONCLUSIONS Normal left ventricular size. Mild concentric left ventricular hypertrophy. Left ventricular systolic function is low normal to mildly reduced with an estimated ejection fract ion in the range of 45-50%. No definite segmental wall motion abnormalities. Trace mitral valve regurgitation. There is trace tricuspid valve regurgitation. The estimated pulmonary arterial pressure is 33 mmHg. BP: / HR: Rhythm: MEASUREMENTS (Male / Female) Normal Values Technical Quality: 2D ECHO LV Diastolic Diameter PLAX 4.3 cm 4.2 - 5.9 / 3.9 - 5.3 cm LV Systolic Diameter PLAX 3.4 cm IVS Diastolic Thickness 1.2 cm 0.6 - 1.0 / 0.6 - 0.9 cm LVPW Diastolic Thickness 1.2 cm 0.6 - 1.0 / 0.6 - 0.9 cm LV Relative Wall Thickness 0.6 RV Internal Dim ED PLAX 3.4 cm LVOT Diameter 2.3 cm Aortic Root Diameter 3.3 cm DOPPLER AV Peak Velocity 116.0 cm/s AV Peak Gradient 5.4 mmHg LVOT Peak Velocity 83.4 cm/s LVOT Peak Gradient 2.8 mmHg AV Area Cont Eq pk 3.0 cm Mitral E Point Velocity 57.3 cm/s Mitral A Point Velocity 77.5 cm/s Mitral E to A Ratio 0.7 LV E' Lateral Velocity 8.8 cm/s Mitral E to LV E' Lateral Ratio 6.5 LV E' Septal Velocity 6.1 cm/s Mitral E to LV E' Septal Ratio 9.3 TR Peak Velocity 239.0 cm/s TR Peak Gradient 22.8 mmHg Right Atrial Pressure 10.0 mmHg Pulmonary Artery Systolic Pressu 32.8 mmHg Right Ventricular Systolic Press 32.8 mmHg PV Peak Velocity 96.4 cm/s PV Peak Gradient 3.7 mmHg FINDINGS LEFT VENTRICLE Normal left ventricular size. Mild concentric left ventricular hypertrophy. Left ventricular systolic function is low normal to mildly reduced with an estimated ejection fract ion in the range of 45-50%. No definite segmental wall motion abnormalities. RIGHT VENTRICLE A pacemaker wire is noted. LEFT ATRIUM The left atrial size is normal. RIGHT ATRIUM The right atrial size is normal. ATRIAL SEPTUM There was redundancy of the interatrial septum, with borderline criterial for septal aneurysm (benig n finding). AORTA The aortic root and proximal ascending aorta are normal in size on limited imaging. MITRAL VALVE Trace mitral valve regurgitation. AORTIC VALVE Trileaflet aortic valve. No aortic valve stenosis or regurgitation. TRICUSPID VALVE There is trace tricuspid valve regurgitation. The estimated pulmonary arterial pressure is 33 mmHg. PULMONARY VALVE No pulmonary valve regurgitation or stenosis. VESSELS The inferior vena cava is normal in size. PERICARDIUM No pericardial effusion. Bhupendra Negron MD (Electronically Signed) Final Date:18 October 2018 16:40
--- NOTE | 2018-10-18 18:24 | CT ---
EXAM DATE: 10/18/2018 6:18 PM EST AGE/SEX: 73 years / Male INDICATIONS: Abdominal pain, weight loss. CLINICAL DATA: This is the patient's initial encounter. Patient reports that signs and symptoms have been present for 1 day and indicates a pain score of 6/10. MEDICAL/SURGICAL HISTORY: Renal failure, chronic. Hypertension. Stroke. Pacemaker. RADIATION DOSE: 4.60 CTDI (mGy) ; Combined studies COMPARISON: [facility], CT ABDOMEN AND PELVIS W/ CONTRAST, 04/08/2015. . TECHNIQUE: Multiple contiguous axial images were obtained through the abdomen. Images were obtained using multiple row detector helical technique. Using automated exposure control and adjustment of the mA and/or kV according to patient size, radiation dose was kept as low as reasonably achievable to o btain optimal diagnostic quality images. DICOM format image data is available electronically for rev iew and comparison. FINDINGS: Lower Lungs: Supradiaphragmatic findings discussed on CT chest Liver: The liver has a homogeneous density without space-occupying lesion. There is no dilation of th e biliary tree. Spleen: Homogeneous density without enlargement. Pancreas: Unremarkable without mass or calcification. Kidneys: Normal in size and shape. No evidence of mass or hydronephrosis. Multiple right-sided renal low densities. Punctate bilateral calcifications measures 1 to 2 mm. Adrenal Glands: Unremarkable. Aorta: Extensive atherosclerotic changes without aneurysmal dilation. Bowel/Mesentery: Copious metatarsal throughout the large bowel. Abdominal Wall: Intact. Retroperitoneum: No evidence of adenopathy in the retrocrural, para-aortic, or deep pelvic regions. Retrocrural adenopathy measures 15 mm and right para-aortic region. Bladder: Contours are smooth. Reproductive Organs: No abnormal masses or calcifications seen. Inguinal: The inguinal region is unremarkable without evidence of adenopathy. Bony Structures: Unremarkable. CONCLUSION: 1. Constipation. 2. Right renal low-density. 3. Bilateral punctate renal calcifications likely vascular versus nonobstructing calculi. 4. Retrocrural adenopathy measures 15 mm, nonspecific. Electronically signed by: Chandan Bui MD Board Certified Radiologist 10/18/2018 6:23 PM EST
--- NOTE | 2018-10-18 18:28 | CT ---
EXAM DATE: 10/18/2018 6:20 PM EST AGE/SEX: 73 years / Male INDICATIONS: Cough. Shortness of breath. CLINICAL DATA: This is the patient's initial encounter. Patient reports that signs and symptoms have been present for 1 day and indicates a pain score of 0/10. MEDICAL/SURGICAL HISTORY: Renal failure, chronic. Hypertension. Stroke. Pacemaker. RADIATION DOSE: 4.60 CTDI (mGy) ; Combined studies COMPARISON: POI, CT CHEST W/ CONTRAST, 04/08/2015. . TECHNIQUE: Multiple contiguous axial images were obtained through the chest without contrast. Image s were obtained in suspended respiration using multiple row detector helical technique. Using automa logan exposure control and adjustment of the mA and/or kV according to patient size, radiation dose was kept as low as reasonably achievable to obtain optimal diagnostic quality images. DICOM format imag e data is available electronically for review and comparison. FINDINGS: Lungs: A 3 x 4.3 cm pleural-based density in the right lower lobe posteriorly. Suspected endobronchi al lesion leading to the density in the right lower lobe. Spiculated density in the left lower lobe m easures 15 x 11 mm. Bullous changes are seen. Peripheral consolidative changes in the posterior later al left upper lobe. Minimal patchy densities in the lateral right upper lobe Mediastinum: There is good visualization of the great vessels of the middle mediastinum. No evidenc e of mediastinal or hilar adenopathy/mass. Pleurae: No evidence of focal thickening or pleural effusion. Axillae: Unremarkable. Bony Structures: Unremarkable. Miscellaneous: The examination was extended to include the upper abdomen, and both adrenal glands ar e normal in size and configuration. CONCLUSION: 1. Patchy consolidative changes in the left upper lobe. 2. Pleural-parenchymal density in the right lower lobe measures 4.3 x 3.0 cm. 3. Spiculated density in the left lower lobe measures 15 x 11 mm. 4. Suspected endobronchial lesion right lower lobe. Bronchoscopy may be warranted. 5. PET/CT scan recommended for biopsy planning. Electronically signed by: Chandan Bui MD Board Certified Radiologist 10/18/2018 6:27 PM EST
[2018-10-18] MEDS: Heparin Drip 25,000 UNIT/250 ML BAG IV.CONT PRN (19:53)
[2018-10-19] MEDS: predniSONE 20 MG Tablet PO SCH (08:44)
[2018-10-19] MEDS: Senna/Docusate Sodium 8.6/50 MG Tablet PO SCH ×2 (08:44→20:50)
[2018-10-19] MEDS: amLODIPine 5 MG Tablet PO SCH (08:45)
[2018-10-19] MEDS: Budesonide-Formoterol 160/4.5 MCG 6 GM Inhaler INH SCH ×2 (08:46→20:38)
[2018-10-19 09:20] LABS: Baso % (Auto) 0.4 % (0.0-2.0); Eos % (Auto) 0.4 % (0.0-4.0); Hematocrit 28.3 % (39.0-51.0); Hemoglobin 9.7 gm/dL (13.0-17.0); Lymph # (Auto) 0.9 th/mm3 (1.0-4.8); Lymph % (Auto) 15.1 % (9.0-44.0); Mean Corpuscular HGB Conc 34.4 % (32.0-36.0); Mean Corpuscular Volume 84.5 fL (80.0-100.0); Mean Platelet Volume 7.8 fL (7.0-11.0); Mono # (Auto) 0.5 th/mm3 (0.0-0.9); Mono % (Auto) 8.4 % (0.0-8.0); Neut # (Auto) 4.7 th/mm3 (1.8-7.7); Neut % (Auto) 75.7 % (16.0-70.0); Platelet Count 202 th/mm3 (150-450); Red Blood Count 3.35 mil/mm3 (4.50-5.90); Red Cell Distribution Width 17.1 % (11.6-17.2); White Blood Count 6.2 th/mm3 (4.0-11.0)
--- NOTE | 2018-10-19 09:44 | P.PNIM ---
Subjective Interval history: Follow-up intermediates probability of pulmonary embolism/ recent CVA/COPD/history of prostate cancer October 19, 2018patient seen and examined now with hemoptysis and some shortness of breath. Case discussed with pulmonary medicine. Physical Exam Vital signs: Vital Signs 10/18/18 12:00 10/18/18 16:00 10/18/18 16:55 Temperature 98.7 F 97.7 F Pulse Rate 60 62 68 Respiratory Rate 20 20 16 Blood Pressure 144/73 H 144/57 H Pulse Oximetry 100 98 10/18/18 20:00 10/18/18 20:05 10/18/18 21:18 Temperature 97.7 F Pulse Rate 64 66 75 Respiratory Rate 18 16 Blood Pressure 155/72 H Pulse Oximetry 98 95 10/19/18 00:00 10/19/18 04:08 10/19/18 04:30 Temperature 98.4 F 98.6 F Pulse Rate 68 71 74 Respiratory Rate 20 16 19 Blood Pressure 122/58 L 137/68 Pulse Oximetry 97 97 10/19/18 08:00 10/19/18 08:38 10/19/18 08:39 Temperature 98.4 F Pulse Rate 65 65 Respiratory Rate 18 20 Blood Pressure 140/70 Pulse Oximetry 95 95 Intake & Output 10/18/18 10/19/18 10/19/18 18:59 06:59 18:59 Intake Total 1550 / 1550 100 / 100 100 / 100 Output Total 1100 / 1100 1300 / 1300 400 / 400 Balance 450 / 450 -1200 / -1200 -300 / -300 Weight 57.7 kg Intake: IV 350 / 350 100 / 100 100 / 100 Heparin/D5W 25,000 U/250 mL 25, 250 / 250 000 unit In 250 ml @ Per Protocol IV.CONT TITRATE PRN Rx #:[id number] Doxy 100 Inj 100 MG In NS Inj 100 / 100 100 / 100 100 / 100 100 ML @ 100 mls/hr IV.SIG Q12H EWELINA Rx#:[id number] Oral 1200 / 1200 Output: Urine 1100 / 1100 1300 / 1300 400 / 400 Other: Date of Last Bowel Movement 10/18/18 Narrative: GENERAL: This is an elderly male who is in no acute distress. SKIN: Warm and dry. Pacemaker in left upper chest. HEAD: Atraumatic. Normocephalic. EYES: Pupils equal and round. No scleral icterus. No injection or drainage. ENT: No nasal bleeding or discharge. Mucous membranes pink and moist. Hoarse voice. NECK: Trachea midline. No JVD. CARDIOVASCULAR: Regular rate and rhythm. No murmur appreciated. RESPIRATORY: No accessory muscle use. Inspiratory and expiratory wheezing noted bilaterally. GASTROINTESTINAL: Abdomen soft, non-tender, nondistended. Hepatic and splenic margins not palpable. MUSCULOSKELETAL: No obvious deformities. No clubbing. No cyanosis. No edema. NEUROLOGICAL: Awake and alert. Mild facial droop appreciated. Left-sided weakness. Results Labs CBC & Chem 7: 10/19/18 08:55 10/18/18 07:16 Imaging Imaging: Impressions Abdomen/Pelvis CT 10/18/18 00:00 CONCLUSION: 1. Constipation. 2. Right renal low-density. 3. Bilateral punctate renal calcifications likely vascular versus nonobstructing calculi. 4. Retrocrural adenopathy measures 15 mm, nonspecific. Chest CT 10/18/18 00:00 CONCLUSION: 1. Patchy consolidative changes in the left upper lobe. 2. Pleural-parenchymal density in the right lower lobe measures 4.3 x 3.0 cm. 3. Spiculated density in the left lower lobe measures 15 x 11 mm. 4. Suspected endobronchial lesion right lower lobe. Bronchoscopy may be warranted. 5. PET/CT scan recommended for biopsy planning. Assessment and Plan Plan 73-year-old man with Intermediate probability Pulmonary embolism The patient had a positive d-dimer and V/Q scan was intermediate probability for pulmonary embolism, although no ventilation/perfusion mismatches were noted. Unable to go for CTA s/t renal disease. Doppler lower extremity negative -This is a likely pulmonary embolism -In the face of hemoptysis, will discontinue heparin drip -Maintain oxygen saturation above 92% -Appreciate input from pulmonary medicine, hematology History of recent CVA -Continue with aspirin, oral anticoagulation contraindicated due to hemoptysis and prior history of GI bleed. -PT to treat and eval Suspected endobronchial lesion right lower lobe per chest CT Spiculated density in left lower lobe -Pulmonary medicine to evaluate for possible bronchoscopy as patient with history of prostate cancer -Appreciate input from oncology Cough/? COPD exacerbation The patient has a cough with mucus production. Also has a 50-year smoking history. -Maintain oxygen saturation above 92% -Smoking cessation instruction. - IV doxycycline. -Continue prednisone 20 mg daily, DuoNeb as needed -incentive spirometry. Odynophagia -consider UGI series and GI consultation PRN Chest pain-resolved Likely s/t above. Reproducible on exam. -trend trops. -telemetry. -pain control as needed. Hypertensive urgency/chronic CHF -Continue labetalol, amlodipine and adjust as needed. -clonidine as needed. Chronic renal disease Appears to be at baseline. -avoid nephrotoxins and monitor. PPx: B-SCDs Code Status: Full
[2018-10-19 09:46] LABS: Alanine Aminotransferase 13 U/L (12-78); Albumin 2.8 g/dL (3.4-5.0); Anion Gap 6 meq/L (5-15); Aspartate Aminotransferase 9 U/L (15-37); Blood Urea Nitrogen 54 mg/dL (7-18); Calcium 8.3 mg/dL (8.5-10.1); Carbon Dioxide 24.4 meq/L (21.0-32.0); Chloride 111 meq/L (98-107); Glomerular Filtration Rate 28 mL/min (>89); Glucose,Random 87 mg/dL (74-106); Potassium 5.2 meq/L (3.5-5.1); Sodium 141 meq/L (136-145)
[2018-10-19 09:48] LABS: Alkaline Phosphatase 44 U/L (45-117); Total Protein 6.5 g/dL (6.4-8.2)
--- NOTE | 2018-10-19 10:31 | P.PNPL ---
Subjective Interval history: Patient is lying in bed in NAD. On room air oxygen and Heparin drip. Had Hemoptysis this morning. Denies any SOB/CP. Physical Exam Vital signs: Vital Signs 10/18/18 12:00 10/18/18 16:00 10/18/18 16:55 Temperature 98.7 F 97.7 F Pulse Rate 60 62 68 Respiratory Rate 20 20 16 Blood Pressure 144/73 H 144/57 H Pulse Oximetry 100 98 10/18/18 20:00 10/18/18 20:05 10/18/18 21:18 Temperature 97.7 F Pulse Rate 64 66 75 Respiratory Rate 18 16 Blood Pressure 155/72 H Pulse Oximetry 98 95 10/19/18 00:00 10/19/18 04:08 10/19/18 04:30 Temperature 98.4 F 98.6 F Pulse Rate 68 71 74 Respiratory Rate 20 16 19 Blood Pressure 122/58 L 137/68 Pulse Oximetry 97 97 10/19/18 08:00 10/19/18 08:38 10/19/18 08:39 Temperature 98.4 F Pulse Rate 65 65 Respiratory Rate 18 20 Blood Pressure 140/70 Pulse Oximetry 95 95 Intake & Output 10/18/18 10/19/18 10/19/18 18:59 06:59 18:59 Intake Total 1550 / 1550 100 / 100 100 / 100 Output Total 1100 / 1100 1300 / 1300 400 / 400 Balance 450 / 450 -1200 / -1200 -300 / -300 Weight 57.7 kg Intake: IV 350 / 350 100 / 100 100 / 100 Heparin/D5W 25,000 U/250 mL 25, 250 / 250 000 unit In 250 ml @ Per Protocol IV.CONT TITRATE PRN Rx #:[id number] Doxy 100 Inj 100 MG In NS Inj 100 / 100 100 / 100 100 / 100 100 ML @ 100 mls/hr IV.SIG Q12H EWELINA Rx#:[id number] Oral 1200 / 1200 Output: Urine 1100 / 1100 1300 / 1300 400 / 400 Other: Date of Last Bowel Movement 10/18/18 - Constitutional no acute distress - Routine HEENT Exam Head: Present: normocephalic, atraumatic Eye: Present: EOMI, PERRL, normal accommodation, conjunctivae pink ENT: Present: mucous membranes moist - Routine Neck Exam Present: supple, full ROM - Routine Respiratory Exam Present: CTA bilaterally - Routine Cardiovascular Exam Present: RRR, S1, S2 - Routine Abdominal Exam Present: soft, normoactive bowel sounds - Routine Extremities Exam Present: full ROM, pulses intact - Routine Skin Exam Present: intact - Routine Neurological Exam Present: alert, oriented X3, CN II-XII intact Assessment and Plan - Plan 1. Intermediate probability for pulmonary embolism. 2. Acute on chronic kidney disease. 3. Active tobacco use. 4. Hypertension. 5. CVA. 6. Anemia of chronic disease. 7. Systolic heart failure. Plan Oxygen p.r.n. to maintain sats above 92%. Bronchodilators- on DuoNeb, Symbicort Continue with prednisone at 20 mg daily. BiPAP p.r.n. for respiratory distress. V/Q scan showed intermediate prob for PE findings on V/Q scan likely related to obstructive lung disease. Patient has negative Doppler US LE and no evidence of hypoxemia. Giving recent episode of hemoptysis and prior hx GI bleed will d/c Heparin drip. Discussed with Dr. Toure. Continue doxycycline 100 mg IV q.12 h. Follow up on sputum culture Check CXR Echo: EF 45-50% Monitor CBC, Heme is following Continue treatment plan
--- NOTE | 2018-10-19 11:29 | XR ---
EXAM DATE: 10/19/2018 11:09 AM EST AGE/SEX: 73 years / Male INDICATIONS: Hemoptysis. CLINICAL DATA: This is the patient's subsequent encounter. Patient reports that signs and symptoms h ave been present for 3 days and indicates a pain score of 0/10. MEDICAL/SURGICAL HISTORY: . Renal failure, chronic. Hypertension. Stroke. . Pacemaker COMPARISON: [facility], CHEST 2V AP&LAT, 10/18/2018. . FINDINGS: Pacemaker implanted in the left chest. The lungs are hyperinflated but clear. The heart and pulmonary vascularity are normal. The portion of the bony skeleton visualized is unremarkable. CONCLUSION: Moderate hyperinflation. I do not see etiology for the patient's hemoptysis. Electronically signed by: Dominic Hutson MD Board Certified Radiologist 10/19/2018 11:27 AM EST
--- NOTE | 2018-10-19 14:58 | P.PNONC ---
Subjective Interval history: Patient lying in bed, complains of a throat pain and points directly to a very specific spot, pointing just left of his trachea at about the midway point. He reports a rapid weight loss. He states he has never been sick before and he feels very sick. He reports hemoptysis, heparin drip has been stopped. Objective Vital Signs/Intake & Output: Vital Signs 10/18/18 16:00 10/18/18 16:55 10/18/18 20:00 Temperature 97.7 F Pulse Rate 62 68 64 Respiratory Rate 20 16 Blood Pressure 144/57 H Pulse Oximetry 98 10/18/18 20:05 10/18/18 21:18 10/19/18 00:00 Temperature 97.7 F 98.4 F Pulse Rate 66 75 68 Respiratory Rate 18 16 20 Blood Pressure 155/72 H 122/58 L Pulse Oximetry 98 95 97 10/19/18 04:08 10/19/18 04:30 10/19/18 08:00 Temperature 98.6 F 98.4 F Pulse Rate 71 74 65 Respiratory Rate 16 19 18 Blood Pressure 137/68 140/70 Pulse Oximetry 97 95 10/19/18 08:38 10/19/18 08:39 10/19/18 12:00 Temperature 98.0 F Pulse Rate 65 69 Respiratory Rate 20 16 Blood Pressure 100/61 Pulse Oximetry 95 92 L Intake & Output 10/18/18 10/19/18 10/19/18 18:59 06:59 18:59 Intake Total 1550 / 1550 100 / 100 100 / 100 Output Total 1100 / 1100 1300 / 1300 400 / 400 Balance 450 / 450 -1200 / -1200 -300 / -300 Weight 57.7 kg Intake: IV 350 / 350 100 / 100 100 / 100 Heparin/D5W 25,000 U/250 mL 25, 250 / 250 000 unit In 250 ml @ Per Protocol IV.CONT TITRATE PRN Rx #:[id number] Doxy 100 Inj 100 MG In NS Inj 100 / 100 100 / 100 100 / 100 100 ML @ 100 mls/hr IV.SIG Q12H NETTA Rx#:[id number] Oral 1200 / 1200 Output: Urine 1100 / 1100 1300 / 1300 400 / 400 Other: Date of Last Bowel Movement 10/18/18 Result Diagrams: 10/19/18 08:55 10/19/18 08:55 Laboratory Results: Laboratory Results - last 24 hr 02/12/19 02/12/19 02/12/19 15:40 15:40 23:25 WBC RBC Hgb Hct MCV MCH MCHC RDW Plt Count MPV Neut % (Auto) Lymph % (Auto) [place] % (Auto) Eos % (Auto) Baso % (Auto) Neut # (Auto) Lymph # (Auto) [place] # (Auto) Eos # (Auto) Baso # (Auto) WBC Differential Differential Comment APTT 76.3 H 45.0 H D Sodium Potassium Chloride Carbon Dioxide Anion Gap BUN Creatinine Estimated GFR Random Glucose Calcium Total Bilirubin AST ALT Alkaline Phosphatase Total Protein Albumin PSA Screen 0.05 10/19/18 10/19/18 10/19/18 08:55 08:55 08:55 WBC 6.2 RBC 3.35 L Hgb 9.7 L Hct 28.3 L MCV 84.5 MCH 29.0 MCHC 34.4 RDW 17.1 Plt Count 202 MPV 7.8 Neut % (Auto) 75.7 H Lymph % (Auto) 15.1 [place] % (Auto) 8.4 H Eos % (Auto) 0.4 Baso % (Auto) 0.4 Neut # (Auto) 4.7 Lymph # (Auto) 0.9 L [place] # (Auto) 0.5 Eos # (Auto) 0.0 Baso # (Auto) 0.0 WBC Differential . Differential Comment Auto diff final APTT 36.4 H Sodium 141 Potassium 5.2 H Chloride 111 H Carbon Dioxide 24.4 Anion Gap 6 BUN 54 H Creatinine 2.75 H Estimated GFR 28 L Random Glucose 87 Calcium 8.3 L Total Bilirubin 0.3 AST 9 L ALT 13 Alkaline Phosphatase 44 L Total Protein 6.5 D Albumin 2.8 L PSA Screen Imaging Studies: Impressions Abdomen/Pelvis CT 10/18/18 00:00 CONCLUSION: 1. Constipation. 2. Right renal low-density. 3. Bilateral punctate renal calcifications likely vascular versus nonobstructing calculi. 4. Retrocrural adenopathy measures 15 mm, nonspecific. Chest CT 10/18/18 00:00 CONCLUSION: 1. Patchy consolidative changes in the left upper lobe. 2. Pleural-parenchymal density in the right lower lobe measures 4.3 x 3.0 cm. 3. Spiculated density in the left lower lobe measures 15 x 11 mm. 4. Suspected endobronchial lesion right lower lobe. Bronchoscopy may be warranted. 5. PET/CT scan recommended for biopsy planning. Chest X-Ray 10/19/18 10:29 CONCLUSION: Moderate hyperinflation. I do not see etiology for the patient's hemoptysis. Medications: Active Medications Generic Name Dose Route Start Last Admin Trade Name Freq PRN Reason Stop Dose Admin Hydrocodone Bitart/Acetaminophen 1 tab 10/17/18 16:01 10/17/18 19:21 [place] 5/325 PO 1 tab Q6H PRN Administration pain 3-10 Albuterol 1 ampul 10/18/18 13:00 10/19/18 08:33 Duoneb Neb (Netta) NEB 1 ampul Q6HR NEB NETTA Administration Amlodipine Besylate 5 mg 10/17/18 19:00 10/19/18 08:45 Norvasc PO 5 mg DAILY NETTA Administration Aspirin 81 mg 10/18/18 09:00 10/19/18 08:45 Ecotrin PO 81 mg DAILY NETTA Administration Budesonide/Formoterol Fumarate 2 puff 10/18/18 13:00 10/19/18 08:46 Symbicort 160/4.5 Mcg Inh INH 2 puff BID NETTA Administration Clonidine HCl 0.1 mg 10/17/18 17:35 10/17/18 18:43 Catapres PO 0.1 mg Q6H PRN Administration SBP> OR = 180, DBP> OR = 100 Doxycycline Hyclate 100 mg/ 100 mls @ 100 mls/hr 10/17/18 20:00 10/19/18 09: 11 Sodium Chloride IV.SIG Infused Q12H NETTA Infusion Labetalol HCl 300 mg 10/17/18 21:00 10/19/18 08:09 Trandate PO 300 mg BID NETTA Administration Prednisone 20 mg 10/19/18 09:00 10/19/18 08:44 Deltasone PO 20 mg DAILY NETTA Administration Senna/Docusate Sodium 1 tab 10/17/18 21:00 10/19/18 08:44 Faviola-Colace PO 1 tab BID NETTA Administration Sodium Chloride 2 ml 10/17/18 21:00 10/19/18 08:46 Ns Flush IV.FLUSH 2 ml BID NETTA Administration Objective Remarks: GENERAL: Cachectic appearing male patient, in no acute distress. SKIN: Warm and dry. HEAD: Normocephalic. Raspy voice(patient reports chronic since stroke) EYES: No scleral icterus. No injection or drainage. NECK: Supple, trachea midline. CARDIOVASCULAR: Regular rate and rhythm without murmurs. RESPIRATORY: Posterior breath sounds clear, equal bilaterally. Nonlabored at rest. GASTROINTESTINAL: Abdomen sunken, soft, non-tender, nondistended. EXTREMITIES: No cyanosis, or edema. MUSCULOSKELETAL: Decreased muscle tone. NEUROLOGICAL: No obvious focal deficit. Awake, alert, and oriented x3. PSYCHIATRIC: Appropriate mood and affect; insight and judgment normal. Assessment/Plan - Plan Mr. Jimenez is a pleasant 73-year-old male patient who presented to the hospital after a fall. 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 Patient had an indeterminate VQ scan and hematology was consulted. Plan: 1. Intermediate probability of pulmonary embolism on VQ scan, however CT chest revealed patchy consolidation changes in the left upper lobe, pleural parenchymal density in the right lower lobe measures 4.3 x 3.0 cm, spiculated density in the left lower lobe measures 15 x 11 mm. Suspected endobronchial lesion right lower lobe. Bronchoscopy may be warranted. PET/CT scan recommended for biopsy planning. Patient was on heparin drip for intermediate probability VQ scan, however he has developed hemoptysis and the heparin drip has been stopped. Pulmonology is following and we will defer to them if they can do a bronchoscopy with biopsy. The patient reports a 25 pound rapid weight loss. 2. PSA 0.05. 3. Subjectively reports throat pain. We will continue to monitor and await pulmonology decision regarding bronchoscopy. - Attending Statement The exam, history, and the medical decision-making described in the above note were completed with the assistance of the mid-level provider. I reviewed and agree with the findings presented. I attest that I had a [id number] encounter with the patient on the same day, and personally performed and documented my assessment and findings in the medical record. Patient complaining of some sore throat and some blood in the sputum this morning. He still has generalized weakness and fatigue. He denies any chest pain. CT of the chest without contrast showed patchy consolidation in the left lung with parenchymal density in the right lung. There is also spiculated density in the left lung with possible endobronchial lesion. I do not think he has pulmonary embolism. In light of hemoptysis the heparin has been discontinued. He will need bronchoscopy for further evaluation. His PSA is 0.05.
[2018-10-20 06:01] LABS: Baso % (Auto) 0.2 % (0.0-2.0); Eos % (Auto) 0.1 % (0.0-4.0); Hematocrit 29.4 % (39.0-51.0); Hemoglobin 9.6 gm/dL (13.0-17.0); Lymph # (Auto) 0.9 th/mm3 (1.0-4.8); Lymph % (Auto) 13.6 % (9.0-44.0); Mean Corpuscular HGB Conc 32.5 % (32.0-36.0); Mean Corpuscular Hemoglobin 27.6 pg (27.0-34.0); Mean Corpuscular Volume 84.9 fL (80.0-100.0); Mean Platelet Volume 8.4 fL (7.0-11.0); Mono # (Auto) 0.5 th/mm3 (0.0-0.9); Mono % (Auto) 8.6 % (0.0-8.0); Neut # (Auto) 4.9 th/mm3 (1.8-7.7); Neut % (Auto) 77.5 % (16.0-70.0); Platelet Count 215 th/mm3 (150-450); Red Blood Count 3.46 mil/mm3 (4.50-5.90); White Blood Count 6.3 th/mm3 (4.0-11.0)
[2018-10-20 06:18] LABS: Alanine Aminotransferase 16 U/L (12-78); Albumin 2.8 g/dL (3.4-5.0); Anion Gap 9 meq/L (5-15); Aspartate Aminotransferase 7 U/L (15-37); Blood Urea Nitrogen 52 mg/dL (7-18); Calcium 8.4 mg/dL (8.5-10.1); Carbon Dioxide 24.6 meq/L (21.0-32.0); Chloride 107 meq/L (98-107); Glomerular Filtration Rate 25 mL/min (>89); Glucose,Random 100 mg/dL (74-106); Potassium 4.8 meq/L (3.5-5.1); Sodium 141 meq/L (136-145)
[2018-10-20 06:20] LABS: Alkaline Phosphatase 47 U/L (45-117); Total Protein 6.5 g/dL (6.4-8.2)
[2018-10-20] MEDS: predniSONE 20 MG Tablet PO SCH (08:01)
[2018-10-20] MEDS: Senna/Docusate Sodium 8.6/50 MG Tablet PO SCH ×2 (08:01→20:45)
[2018-10-20] MEDS: amLODIPine 5 MG Tablet PO SCH (08:01)
[2018-10-20] MEDS: Budesonide-Formoterol 160/4.5 MCG 6 GM Inhaler INH SCH ×2 (08:02→20:49)
--- NOTE | 2018-10-20 10:20 | P.PNIM ---
Subjective Interval history: Follow-up intermediate probability of pulmonary embolism/ recent CVA/COPD/history of prostate cancer/abnormal chest CT October 20, 2018patient seen and examined, reports some throat discomfort for and mild pain. Patient also reports some light hemoptysis. States he is homeless. Physical Exam Vital signs: Vital Signs 10/19/18 12:00 10/19/18 15:58 10/19/18 16:00 Temperature 98.0 F 97.3 F L Pulse Rate 69 67 75 Respiratory Rate 16 17 18 Blood Pressure 100/61 126/62 Pulse Oximetry 92 L 93 L 10/19/18 18:09 10/19/18 20:00 10/19/18 20:11 Temperature 98.0 F Pulse Rate 60 72 84 Respiratory Rate 20 Blood Pressure 126/60 Pulse Oximetry 98 10/19/18 21:16 10/19/18 21:17 10/20/18 00:00 Temperature 98.3 F Pulse Rate 87 70 Respiratory Rate 15 20 Blood Pressure 150/74 H Pulse Oximetry 97 97 10/20/18 03:51 10/20/18 04:00 10/20/18 08:00 Temperature 98.9 F 98.3 F Pulse Rate 71 71 66 Respiratory Rate 15 20 18 Blood Pressure 152/77 H 150/77 H Pulse Oximetry 93 L 95 10/20/18 10:12 Temperature Pulse Rate 68 Respiratory Rate 20 Blood Pressure Pulse Oximetry 96 Intake & Output 10/19/18 10/20/18 10/20/18 18:59 06:59 18:59 Intake Total 224 / 224 100 / 100 100 / 100 Output Total 400 / 400 600 / 600 Balance -176 / -176 -500 / -500 100 / 100 Weight 58.6 kg Intake: IV 224 / 224 100 / 100 100 / 100 Heparin/D5W 25,000 U/250 mL 25, 124 / 124 000 unit In 250 ml @ Per Protocol IV.CONT TITRATE PRN Rx #:[id number] Doxy 100 Inj 100 MG In NS Inj 100 / 100 100 / 100 100 / 100 100 ML @ 100 mls/hr IV.SIG Q12H EWELINA Rx#:[id number] Output: Urine 400 / 400 600 / 600 Other: # Voids 3 3 Date of Last Bowel Movement 10/18/18 Narrative: GENERAL: This is an elderly male who is in no acute distress. SKIN: Warm and dry. Pacemaker in left upper chest. HEAD: Atraumatic. Normocephalic. EYES: Pupils equal and round. No scleral icterus. No injection or drainage. ENT: No nasal bleeding or discharge. Mucous membranes pink and moist. Hoarse voice. NECK: Trachea midline. No JVD. CARDIOVASCULAR: Regular rate and rhythm. No murmur appreciated. RESPIRATORY: No accessory muscle use. Inspiratory and expiratory wheezing noted bilaterally. GASTROINTESTINAL: Abdomen soft, non-tender, nondistended. Hepatic and splenic margins not palpable. MUSCULOSKELETAL: No obvious deformities. No clubbing. No cyanosis. No edema. NEUROLOGICAL: Awake and alert. Mild facial droop appreciated. Left-sided weakness. Results Labs CBC & Chem 7: 10/20/18 04:42 10/20/18 04:42 Labs: Microbiology 10/19/18 08:50 Sputum - Expectorated Sputum Gram Stain - Final Imaging Imaging: Impressions Chest X-Ray 10/19/18 10:29 CONCLUSION: Moderate hyperinflation. I do not see etiology for the patient's hemoptysis. Assessment and Plan Plan 73-year-old man with Intermediate probability Pulmonary embolism The patient had a positive d-dimer and V/Q scan was intermediate probability for pulmonary embolism, although no ventilation/perfusion mismatches were noted. Unable to go for CTA s/t renal disease. Doppler lower extremity negative -This is unlikely pulmonary embolism -In the face of hemoptysis, heparin drip was discontinued October 19, 2018 -Maintain oxygen saturation above 92% -Appreciate input from pulmonary medicine, hematology History of recent CVA -Continue with aspirin, oral anticoagulation contraindicated due to hemoptysis and prior history of GI bleed. -PT to treat and eval Suspected endobronchial lesion right lower lobe per chest CT Spiculated density in left lower lobe -Pulmonary medicine to evaluate for possible bronchoscopy as patient with history of prostate cancer -Appreciate input from oncology Cough/? COPD exacerbation The patient has a cough with mucus production. Also has a 50-year smoking history. -Maintain oxygen saturation above 92% -Smoking cessation instruction. -Continue IV doxycycline. -Continue prednisone 20 mg daily, DuoNeb as needed -incentive spirometry. Odynophagia -consider UGI series and GI consultation PRN Chest pain-resolved Likely s/t above. Reproducible on exam. -trend trops. -telemetry. -pain control as needed. Hypertensive urgency/chronic CHF -Continue labetalol, amlodipine and adjust as needed. -clonidine as needed. Chronic renal disease Appears to be at baseline. -avoid nephrotoxins and monitor. PPx: B-SCDs Code Status: Full
--- NOTE | 2018-10-20 12:22 | P.PNPL ---
Subjective Interval history: Patient is on room air oxygen. Denies any SOB, CP, reports productive cough with bloody tinged sputum earlier. Off Heparin drip. Physical Exam Vital signs: Vital Signs 10/19/18 15:58 10/19/18 16:00 10/19/18 18:09 Temperature 97.3 F L Pulse Rate 67 75 60 Respiratory Rate 17 18 Blood Pressure 126/62 Pulse Oximetry 93 L 10/19/18 20:00 10/19/18 20:11 10/19/18 21:16 Temperature 98.0 F Pulse Rate 72 84 Respiratory Rate 20 Blood Pressure 126/60 Pulse Oximetry 98 97 10/19/18 21:17 10/20/18 00:00 10/20/18 03:51 Temperature 98.3 F Pulse Rate 87 70 71 Respiratory Rate 15 20 15 Blood Pressure 150/74 H Pulse Oximetry 97 10/20/18 04:00 10/20/18 08:00 10/20/18 10:12 Temperature 98.9 F 98.3 F Pulse Rate 71 66 68 Respiratory Rate 20 18 20 Blood Pressure 152/77 H 150/77 H Pulse Oximetry 93 L 95 96 Intake & Output 10/19/18 10/20/18 10/20/18 18:59 06:59 18:59 Intake Total 224 / 224 100 / 100 100 / 100 Output Total 400 / 400 600 / 600 Balance -176 / -176 -500 / -500 100 / 100 Weight 58.6 kg Intake: IV 224 / 224 100 / 100 100 / 100 Heparin/D5W 25,000 U/250 mL 25, 124 / 124 000 unit In 250 ml @ Per Protocol IV.CONT TITRATE PRN Rx #:[id number] Doxy 100 Inj 100 MG In NS Inj 100 / 100 100 / 100 100 / 100 100 ML @ 100 mls/hr IV.SIG Q12H EWELINA Rx#:[id number] Output: Urine 400 / 400 600 / 600 Other: # Voids 3 3 Date of Last Bowel Movement 10/18/18 - Constitutional no acute distress - Routine HEENT Exam Head: Present: normocephalic, atraumatic Eye: Present: EOMI, PERRL, normal accommodation, conjunctivae pink ENT: Present: mucous membranes moist - Routine Neck Exam Present: supple, full ROM, trachea midline - Routine Respiratory Exam Present: CTA bilaterally - Routine Cardiovascular Exam Present: RRR, S1, S2 - Routine Abdominal Exam Present: soft, normoactive bowel sounds - Routine Skin Exam Present: intact - Routine Neurological Exam Present: alert, oriented X3, CN II-XII intact Assessment and Plan - Plan 1. Intermediate probability for pulmonary embolism. 2. Acute on chronic kidney disease. 3. Active tobacco use. 4. Hypertension. 5. CVA. 6. Anemia of chronic disease. 7. Systolic heart failure. 8. Patchy consolidative changes in the left upper lobe. Pleural-parenchymal density in the right lower lobe measures 4.3 x 3.0 cm. Spiculated density in the left lower lobe measures 15 x 11 mm. Plan Oxygen p.r.n. to maintain sats above 92%. Bronchodilators- on DuoNeb, Symbicort Continue prednisone at 20 mg daily. BiPAP p.r.n. for respiratory distress. V/Q scan showed intermediate prob for PE findings on V/Q scan likely related to obstructive lung disease. Doppler US LE negative for DVT CXR 10/19: Hyperinflated lungs CT chest 10/18: Patchy consolidative changes in the left upper lobe. Pleural- parenchymal density in the right lower lobe measures 4.3 x 3.0 cm. Spiculated density in the left lower lobe measures 15 x 11 mm. Discussed Bronch with possible TBBX and patient is agreeable. Will keep NPO after midnight, place on D5NS@75ml/hr Continue doxycycline 100 mg IV q.12 h. Follow up on sputum culture Echo: EF 45-50% Monitor CBC, Heme is following Monitor renal function. Consider renal eval. Continue treatment plan
[2018-10-20] MEDS: Dextrose 5%/NaCl 0.9% Inj 1,000 ML IV.CONT SCH (13:02)
--- NOTE | 2018-10-20 16:04 | P.PNONC ---
Subjective Interval history: Patient resting comfortably in bed awake. Denies any chest pain or shortness of breath. Reports pain to neck area persists. Patient reports that he was seen by pulmonology and is agreeable to bronchoscopy. He is eager to find out why he is sick. Patient reports that up to this hospital visit he has had in apartments and is not homeless however, he is unsure of where he will go once discharged from here. He also states that his cell phone is and he is without a scrap charger, states that his sister's cell phone number is in the phone therefore he has been unable to communicate with her. Discussed with RN and she is attempting to locate a scrap charger for patient to use. Objective Vital Signs/Intake & Output: Vital Signs 10/19/18 18:09 10/19/18 20:00 10/19/18 20:11 Temperature 98.0 F Pulse Rate 60 72 84 Respiratory Rate 20 Blood Pressure 126/60 Pulse Oximetry 98 10/19/18 21:16 10/19/18 21:17 10/20/18 00:00 Temperature 98.3 F Pulse Rate 87 70 Respiratory Rate 15 20 Blood Pressure 150/74 H Pulse Oximetry 97 97 10/20/18 03:51 10/20/18 04:00 10/20/18 08:00 Temperature 98.9 F 98.3 F Pulse Rate 71 71 66 Respiratory Rate 15 20 18 Blood Pressure 152/77 H 150/77 H Pulse Oximetry 93 L 95 10/20/18 10:12 10/20/18 12:00 Temperature 97.9 F Pulse Rate 68 69 Respiratory Rate 20 18 Blood Pressure 120/63 Pulse Oximetry 96 96 Intake & Output 10/19/18 10/20/18 10/20/18 18:59 06:59 18:59 Intake Total 224 / 224 100 / 100 100 / 100 Output Total 400 / 400 600 / 600 Balance -176 / -176 -500 / -500 100 / 100 Weight 58.6 kg Intake: IV 224 / 224 100 / 100 100 / 100 Heparin/D5W 25,000 U/250 mL 25, 124 / 124 000 unit In 250 ml @ Per Protocol IV.CONT TITRATE PRN Rx #:[id number] Doxy 100 Inj 100 MG In NS Inj 100 / 100 100 / 100 100 / 100 100 ML @ 100 mls/hr IV.SIG Q12H NETTA Rx#:[id number] Output: Urine 400 / 400 600 / 600 Other: # Voids 3 3 Date of Last Bowel Movement 10/18/18 Result Diagrams: 10/20/18 04:42 10/20/18 04:42 Laboratory Results: Laboratory Results - last 24 hr 10/20/18 10/20/18 10/20/18 04:42 04:42 13:16 WBC 6.3 RBC 3.46 L Hgb 9.6 L Hct 29.4 L MCV 84.9 MCH 27.6 MCHC 32.5 RDW 17.0 Plt Count 215 MPV 8.4 Neut % (Auto) 77.5 H Lymph % (Auto) 13.6 [place] % (Auto) 8.6 H Eos % (Auto) 0.1 Baso % (Auto) 0.2 Neut # (Auto) 4.9 Lymph # (Auto) 0.9 L [place] # (Auto) 0.5 Eos # (Auto) 0.0 Baso # (Auto) 0.0 WBC Differential . Differential Comment Auto diff final PT 10.0 INR 1.0 APTT Sodium 141 Potassium 4.8 Chloride 107 Carbon Dioxide 24.6 Anion Gap 9 BUN 52 H Creatinine 3.00 H Estimated GFR 25 L Random Glucose 100 Calcium 8.4 L Total Bilirubin 0.2 AST 7 L ALT 16 Alkaline Phosphatase 47 Total Protein 6.5 Albumin 2.8 L 10/20/18 13:16 WBC RBC Hgb Hct MCV MCH MCHC RDW Plt Count MPV Neut % (Auto) Lymph % (Auto) [place] % (Auto) Eos % (Auto) Baso % (Auto) Neut # (Auto) Lymph # (Auto) [place] # (Auto) Eos # (Auto) Baso # (Auto) WBC Differential Differential Comment PT INR APTT 25.6 D Sodium Potassium Chloride Carbon Dioxide Anion Gap BUN Creatinine Estimated GFR Random Glucose Calcium Total Bilirubin AST ALT Alkaline Phosphatase Total Protein Albumin Culture Results: Microbiology 10/19/18 08:50 Gram Stain - Final Sputum - Expectorated Sputum Sputum Culture - Preliminary gram negative rods Medications: Active Medications Generic Name Dose Route Start Last Admin Trade Name Freq PRN Reason Stop Dose Admin Hydrocodone Bitart/Acetaminophen 1 tab 10/17/18 16:01 10/17/18 19:21 [place] 5/325 PO 1 tab Q6H PRN Administration pain 3-10 Albuterol 1 ampul 10/18/18 13:00 02/14/19 03:51 Duoneb Neb (Netta) NEB 1 ampul Q6HR NEB NETTA Administration Amlodipine Besylate 5 mg 10/17/18 19:00 10/20/18 08:01 Norvasc PO 5 mg DAILY NETTA Administration Aspirin 81 mg 10/18/18 09:00 10/20/18 08:01 Ecotrin PO 81 mg DAILY NETTA Administration Budesonide/Formoterol Fumarate 2 puff 10/18/18 13:00 10/20/18 08:02 Symbicort 160/4.5 Mcg Inh INH 2 puff BID NETTA Administration Clonidine HCl 0.1 mg 10/17/18 17:35 10/17/18 18:43 Catapres PO 0.1 mg Q6H PRN Administration SBP> OR = 180, DBP> OR = 100 Doxycycline Hyclate 100 mg/ 100 mls @ 100 mls/hr 10/17/18 20:00 10/20/18 08: 53 Sodium Chloride IV.SIG Infused Q12H NETTA Infusion Dextrose/Sodium Chloride 1,000 mls @ 75 mls/hr 10/20/18 12:30 10/20/18 13:02 D5w/Normal Saline Inj IV.CONT 75 mls/hr .[id number] NETTA Administration Labetalol HCl 300 mg 10/17/18 21:00 10/20/18 08:01 Trandate PO 300 mg BID NETTA Administration Prednisone 20 mg 10/19/18 09:00 10/20/18 08:01 Deltasone PO 20 mg DAILY NETTA Administration Senna/Docusate Sodium 1 tab 10/17/18 21:00 10/20/18 08:01 Faviola-Colace PO 1 tab BID NETTA Administration Sodium Chloride 2 ml 10/17/18 21:00 10/20/18 08:01 Ns Flush IV.FLUSH 2 ml BID NETTA Administration Objective Remarks: GENERAL: Cachectic appearing male patient, in no acute distress. SKIN: Warm and dry. HEAD: Normocephalic. Raspy voice(patient reports chronic since stroke) EYES: No scleral icterus. No injection or drainage. NECK: Supple, trachea midline. CARDIOVASCULAR: Regular rate and rhythm without murmurs. RESPIRATORY: Posterior breath sounds clear, equal bilaterally. Nonlabored at rest. GASTROINTESTINAL: Abdomen sunken, soft, non-tender, nondistended. EXTREMITIES: No cyanosis, or edema. MUSCULOSKELETAL: Decreased muscle tone. NEUROLOGICAL: No obvious focal deficit. Awake, alert, and oriented x3. PSYCHIATRIC: Appropriate mood and affect; insight and judgment normal. Assessment/Plan - Plan Mr. Jimenez is a pleasant 73-year-old male patient who presented to the hospital after a fall. 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 Patient had an indeterminate VQ scan and hematology was consulted. Plan: 1. Intermediate probability of pulmonary embolism on VQ scan, however CT chest revealed patchy consolidation changes in the left upper lobe, pleural parenchymal density in the right lower lobe measures 4.3 x 3.0 cm, spiculated density in the left lower lobe measures 15 x 11 mm. Suspected endobronchial lesion right lower lobe. Patient has been seen by pulmonology and states that he is agreeable to bronchoscopy. PET/CT scan recommended for biopsy planning. Patient was on heparin drip for indeterminate probability VQ scan, however he has developed hemoptysis and the heparin drip has been stopped. 2. Subjectively reports throat pain. We will continue to monitor and await findings from bronchoscopy. 3. Patient may need case management services related to social issues pending diagnosis. - Attending Statement The exam, history, and the medical decision-making described in the above note were completed with the assistance of the mid-level provider. I reviewed and agree with the findings presented. I attest that I had a [id number] encounter with the patient on the same day, and personally performed and documented my assessment and findings in the medical record. Patient still complained of sore throat and cough. He has blood-tinged sputum. In light of his significant weight loss and CT finding, neoplasm will need to be ruled out. Recommend bronchoscopy for further evaluation. I doubt that he has pulmonary embolism and heparin gtt. has been discontinued. Can continue low-dose heparin for DVT prophylaxis.
[2018-10-20] MEDS: Heparin - SQ 10,000 UNITS/ML Vial SQ SCH (20:50)
[2018-10-21] MEDS: Dextrose 5%/NaCl 0.9% Inj 1,000 ML IV.CONT SCH ×2 (03:11→15:12)
[2018-10-21 04:11] LABS: Calcium 8.2 mg/dL (8.5-10.1); Carbon Dioxide 24.6 meq/L (21.0-32.0); Potassium 4.6 meq/L (3.5-5.1)
[2018-10-21] MEDS ORDERED: Sodium Chlor 0.9% Inj 500 ML IV.CONT ONE (04:45)
[2018-10-21] MEDS ORDERED: Chlorhexidine Gluconate 2% 1 Pack (2 Cloths) TOPICAL ONE (04:45)
--- NOTE | 2018-10-21 07:51 | P.PNONC ---
Subjective Interval history: Patient still has cough with blood tinged sputum. He has mild shortness of breath and sore throat. Denies any chest pain. He still very weak. He is going down for bronchoscopy. Objective Vital Signs/Intake & Output: Vital Signs 10/20/18 08:00 10/20/18 10:12 10/20/18 12:00 Temperature 98.3 F 97.9 F Pulse Rate 66 68 69 Respiratory Rate 18 20 18 Blood Pressure 150/77 H 120/63 Pulse Oximetry 95 96 96 10/20/18 16:00 10/20/18 16:41 10/20/18 19:19 Temperature 98.3 F Pulse Rate 70 70 68 Respiratory Rate 18 18 Blood Pressure 132/70 Pulse Oximetry 97 10/20/18 20:00 10/20/18 21:42 10/21/18 00:00 Temperature 99 F 98.9 F Pulse Rate 71 78 72 Respiratory Rate 18 12 18 Blood Pressure 140/72 152/72 H Pulse Oximetry 93 L 94 L 94 L 10/21/18 00:50 10/21/18 03:45 10/21/18 04:00 Temperature 99.2 F Pulse Rate 71 76 79 Respiratory Rate 16 18 Blood Pressure 163/73 H Pulse Oximetry 93 L 10/21/18 05:33 10/21/18 07:20 Temperature 98.5 F Pulse Rate 65 67 Respiratory Rate 18 Blood Pressure 165/78 H Pulse Oximetry 93 L Intake & Output 10/20/18 10/21/18 10/21/18 18:59 06:59 18:59 Intake Total 100 / 100 1100 / 1100 Output Total 4000 / 4000 1700 / 1700 Balance -3900 / -3900 -600 / -600 Weight 58.6 kg Intake: IV 100 / 100 1100 / 1100 D5W/Normal Saline Inj 1,000 ML 1000 / 1000 @ 75 mls/hr IV.CONT .[id number] NETTA Rx#:[id number] Doxy 100 Inj 100 MG In NS Inj 100 / 100 100 / 100 100 ML @ 100 mls/hr IV.SIG Q12H NETTA Rx#:[id number] Output: Urine 4000 / 4000 1700 / 1700 Other: Date of Last Bowel Movement 10/18/18 Result Diagrams: 10/20/18 04:42 10/21/18 03:28 Laboratory Results: Laboratory Results - last 24 hr 10/20/18 10/20/18 10/21/18 13:16 13:16 03:28 PT 10.0 INR 1.0 APTT 25.6 D Sodium 144 Potassium 4.6 Chloride 112 H Carbon Dioxide 24.6 Anion Gap 7 BUN 47 H Creatinine 2.69 H Estimated GFR 28 L Random Glucose 122 H Calcium 8.2 L Culture Results: Microbiology 10/19/18 08:50 Gram Stain - Final Sputum - Expectorated Sputum Sputum Culture - Preliminary gram negative rods Medications: Active Medications Generic Name Dose Route Start Last Admin Trade Name Freq PRN Reason Stop Dose Admin Hydrocodone Bitart/Acetaminophen 1 tab 10/17/18 16:01 10/17/18 19:21 [place] 5/325 PO 1 tab Q6H PRN Administration pain 3-10 Albuterol 1 ampul 10/18/18 13:00 10/21/18 03:44 Duoneb Neb (Netta) NEB 1 ampul Q6HR NEB NETTA Administration Amlodipine Besylate 5 mg 10/17/18 19:00 10/20/18 08:01 Norvasc PO 5 mg DAILY NETTA Administration Aspirin 81 mg 10/18/18 09:00 10/20/18 08:01 Ecotrin PO 81 mg DAILY NETTA Administration Budesonide/Formoterol Fumarate 2 puff 10/18/18 13:00 10/20/18 20:49 Symbicort 160/4.5 Mcg Inh INH 2 puff BID NETTA Administration Clonidine HCl 0.1 mg 10/17/18 17:35 10/17/18 18:43 Catapres PO 0.1 mg Q6H PRN Administration SBP> OR = 180, DBP> OR = 100 Heparin Sodium (Porcine) 5,000 units 10/20/18 21:00 10/20/18 20:50 Heparin Inj SQ Not Given Q12HR NETTA Doxycycline Hyclate 100 mg/ 100 mls @ 100 mls/hr 10/17/18 20:00 10/21/18 07: 36 Sodium Chloride IV.SIG Not Given Q12H NETTA Dextrose/Sodium Chloride 1,000 mls @ 75 mls/hr 10/20/18 12:30 10/21/18 03:11 D5w/Normal Saline Inj IV.CONT 75 mls/hr .[id number] NETTA Administration Labetalol HCl 300 mg 10/17/18 21:00 10/20/18 20:45 Trandate PO 300 mg BID NETTA Administration Prednisone 20 mg 10/19/18 09:00 10/20/18 08:01 Deltasone PO 20 mg DAILY NETTA Administration Senna/Docusate Sodium 1 tab 10/17/18 21:00 10/20/18 20:45 Faviola-Colace PO 1 tab BID NETTA Administration Sodium Chloride 2 ml 10/17/18 21:00 10/20/18 20:50 Ns Flush IV.FLUSH Not Given BID NETTA Objective Remarks: GENERAL: Well-nourished, well-developed patient. Weak. SKIN: Warm and dry. HEAD: Normocephalic. EYES: No scleral icterus. No injection or drainage. NECK: Supple, trachea midline. No JVD or lymphadenopathy. LYMPHATIC: No adenopathy. CARDIOVASCULAR: Regular rate and rhythm without murmurs. RESPIRATORY: Breath sounds diffuse rhonchi. No accessory muscle use. GASTROINTESTINAL: Abdomen soft, non-tender, nondistended. EXTREMITIES: No cyanosis, or edema. MUSCULOSKELETAL: Adequate muscle tone. NEUROLOGICAL: No obvious focal deficit. Awake, alert, and oriented x3. PSYCHIATRIC: Appropriate mood and affect; insight and judgment normal. Assessment/Plan - Plan Mr. Jimenez is a pleasant 73-year-old male patient who presented to the hospital after a fall. 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 Patient had an indeterminate VQ scan and hematology was consulted. Plan: 1. Intermediate probability of pulmonary embolism on VQ scan, however CT chest revealed patchy consolidation changes in the left upper lobe, pleural parenchymal density in the right lower lobe measures 4.3 x 3.0 cm, spiculated density in the left lower lobe measures 15 x 11 mm. Suspected endobronchial lesion right lower lobe. I doubt that he has pulmonary embolism. Full anticoagulation has been discontinued. Patient has been seen by pulmonology and he is going to have bronchoscopy today. 2. Subjectively reports throat pain. We will continue to monitor and await findings from bronchoscopy. 3. Patient may need case management services related to social issues pending diagnosis. 4. Continue DVT prophylaxis with subcu heparin.
[2018-10-21] MEDS ORDERED: Neostigmine Inj 5 MG/5 ML Syringe IV.PUSH ONE (08:40)
[2018-10-21] MEDS ORDERED: Glycopyrrolate Inj 1 MG/5 ML Syringe IV.PUSH ONE (08:40)
[2018-10-21] MEDS ORDERED: Lidocaine PF 1% Inj 5 ML Syringe INFILTRATN ONE (08:40)
[2018-10-21] MEDS ORDERED: fentaNYL Citrate Inj 100 MCG/2 ML Ampul ONE (09:46)
--- NOTE | 2018-10-21 10:05 | P.PNPL ---
Subjective Interval history: Patient s/p bronch this morning. Afebrile. Physical Exam Vital signs: Vital Signs 10/20/18 10:12 10/20/18 12:00 10/20/18 16:00 Temperature 97.9 F 98.3 F Pulse Rate 68 69 70 Respiratory Rate 20 18 18 Blood Pressure 120/63 132/70 Pulse Oximetry 96 96 97 10/20/18 16:41 10/20/18 19:19 10/20/18 20:00 Temperature 99 F Pulse Rate 70 68 71 Respiratory Rate 18 18 Blood Pressure 140/72 Pulse Oximetry 93 L 10/20/18 21:42 10/21/18 00:00 10/21/18 00:50 Temperature 98.9 F Pulse Rate 78 72 71 Respiratory Rate 12 18 Blood Pressure 152/72 H Pulse Oximetry 94 L 94 L 10/21/18 03:45 10/21/18 04:00 10/21/18 05:33 Temperature 99.2 F Pulse Rate 76 79 65 Respiratory Rate 16 18 Blood Pressure 163/73 H Pulse Oximetry 93 L 10/21/18 07:20 10/21/18 09:35 10/21/18 09:36 Temperature 98.5 F 98.4 F Pulse Rate 67 69 Respiratory Rate 18 18 Blood Pressure 165/78 H 153/75 H Pulse Oximetry 93 L 100 100 10/21/18 09:41 10/21/18 09:45 Temperature 98.5 F Pulse Rate 69 67 Respiratory Rate 20 21 Blood Pressure 140/75 135/71 Pulse Oximetry 96 95 Intake & Output 10/20/18 10/21/18 10/21/18 18:59 06:59 18:59 Intake Total 100 / 100 1100 / 1100 Output Total 4000 / 4000 1700 / 1700 Balance -3900 / -3900 -600 / -600 Weight 58.6 kg Intake: IV 100 / 100 1100 / 1100 D5W/Normal Saline Inj 1,000 ML 1000 / 1000 @ 75 mls/hr IV.CONT .[id number] EWELINA Rx#:[id number] Doxy 100 Inj 100 MG In NS Inj 100 / 100 100 / 100 100 ML @ 100 mls/hr IV.SIG Q12H EWELINA Rx#:[id number] Output: Urine 4000 / 4000 1700 / 1700 Other: Date of Last Bowel Movement 10/18/18 - Constitutional no acute distress - Routine HEENT Exam Head: Present: normocephalic, atraumatic Eye: Present: EOMI, PERRL, normal accommodation, conjunctivae pink ENT: Present: mucous membranes moist - Routine Neck Exam Present: supple, full ROM, trachea midline - Routine Respiratory Exam Present: CTA bilaterally - Routine Cardiovascular Exam Present: RRR, S1, S2 - Routine Abdominal Exam Present: soft, normoactive bowel sounds - Routine Extremities Exam Present: full ROM, pulses intact - Routine Neurological Exam Present: alert, oriented X3, CN II-XII intact Assessment and Plan - Plan 1. Intermediate probability for pulmonary embolism. 2. Acute on chronic kidney disease. 3. Active tobacco use. 4. Hypertension. 5. CVA. 6. Anemia of chronic disease. 7. Systolic heart failure. 8. Patchy consolidative changes in the left upper lobe. Pleural-parenchymal density in the right lower lobe measures 4.3 x 3.0 cm. Spiculated density in the left lower lobe measures 15 x 11 mm. Plan Oxygen p.r.n. to maintain sats above 92%. Bronchodilators- on DuoNeb, Symbicort Continue prednisone at 20 mg daily. BiPAP p.r.n. for respiratory distress. V/Q scan showed intermediate prob for PE findings on V/Q scan likely related to obstructive lung disease. Doppler US LE negative for DVT CXR 10/19: Hyperinflated lungs CT chest 10/18: Patchy consolidative changes in the left upper lobe. Pleural- parenchymal density in the right lower lobe measures 4.3 x 3.0 cm. Spiculated density in the left lower lobe measures 15 x 11 mm. Patient s/p bronch this morning, mucous plugs noted RLL and MARCIE suctioned to clear. No evidence of endobronchial lesions or bleeding. BAL washing from RLL and MARCIE sent to micro and Cytology. Continue D5NS@75ml/hr, renal function is improving Place on Aztreonam ( Pt. is allergic to PCN), sputum culture: GNR. Will need repeat CT chest in 2-4 weeks as outpatient. Echo: EF 45-50% Monitor CBC, Heme is following Monitor renal function. Consider renal eval. Continue treatment plan
[2018-10-21] MEDS: Heparin - SQ 10,000 UNITS/ML Vial SQ SCH (11:20)
--- NOTE | 2018-10-21 11:51 | P.PNIM ---
Subjective Interval history: Follow-up intermediate probability for pulmonary embolism/ pneumonia/recent CVA October 21, 2018patient seen and examined, returned from bronchoscopy. Reports some slight episode of hemoptysis. Case discussed with pulmonary medicine. Physical Exam Vital signs: Vital Signs 10/20/18 12:00 10/20/18 16:00 10/20/18 16:41 Temperature 97.9 F 98.3 F Pulse Rate 69 70 70 Respiratory Rate 18 18 18 Blood Pressure 120/63 132/70 Pulse Oximetry 96 97 10/20/18 19:19 10/20/18 20:00 10/20/18 21:42 Temperature 99 F Pulse Rate 68 71 78 Respiratory Rate 18 12 Blood Pressure 140/72 Pulse Oximetry 93 L 94 L 10/21/18 00:00 10/21/18 00:50 10/21/18 03:45 Temperature 98.9 F Pulse Rate 72 71 76 Respiratory Rate 18 16 Blood Pressure 152/72 H Pulse Oximetry 94 L 10/21/18 04:00 10/21/18 05:33 10/21/18 07:20 Temperature 99.2 F 98.5 F Pulse Rate 79 65 67 Respiratory Rate 18 18 Blood Pressure 163/73 H 165/78 H Pulse Oximetry 93 L 93 L 10/21/18 09:35 10/21/18 09:36 10/21/18 09:41 Temperature 98.4 F Pulse Rate 69 69 Respiratory Rate 18 20 Blood Pressure 153/75 H 140/75 Pulse Oximetry 100 100 96 10/21/18 09:45 Temperature 98.5 F Pulse Rate 67 Respiratory Rate 21 Blood Pressure 135/71 Pulse Oximetry 95 Intake & Output 10/20/18 10/21/18 10/21/18 18:59 06:59 18:59 Intake Total 100 / 100 1100 / 1100 Output Total 4000 / 4000 1700 / 1700 Balance -3900 / -3900 -600 / -600 Weight 58.6 kg Intake: IV 100 / 100 1100 / 1100 D5W/Normal Saline Inj 1,000 ML 1000 / 1000 @ 75 mls/hr IV.CONT .[id number] EWELINA Rx#:[id number] Doxy 100 Inj 100 MG In NS Inj 100 / 100 100 / 100 100 ML @ 100 mls/hr IV.SIG Q12H EWELINA Rx#:[id number] Output: Urine 4000 / 4000 1700 / 1700 Other: Date of Last Bowel Movement 10/18/18 Narrative: GENERAL: This is an elderly male who is in no acute distress. SKIN: Warm and dry. Pacemaker in left upper chest. HEAD: Atraumatic. Normocephalic. EYES: Pupils equal and round. No scleral icterus. No injection or drainage. ENT: No nasal bleeding or discharge. Mucous membranes pink and moist. Hoarse voice. NECK: Trachea midline. No JVD. CARDIOVASCULAR: Regular rate and rhythm. No murmur appreciated. RESPIRATORY: No accessory muscle use. Inspiratory and expiratory wheezing noted bilaterally. GASTROINTESTINAL: Abdomen soft, non-tender, nondistended. Hepatic and splenic margins not palpable. MUSCULOSKELETAL: No obvious deformities. No clubbing. No cyanosis. No edema. NEUROLOGICAL: Awake and alert. Mild facial droop appreciated. Left-sided weakness. Results Labs CBC & Chem 7: 10/20/18 04:42 10/21/18 03:28 Labs: Microbiology 10/19/18 08:50 Sputum - Expectorated Sputum Gram Stain - Final 10/19/18 08:50 Sputum - Expectorated Sputum Sputum Culture - Preliminary gram negative rods Assessment and Plan Plan 73-year-old man with Intermediate probability Pulmonary embolism The patient had a positive d-dimer and V/Q scan was intermediate probability for pulmonary embolism, although no ventilation/perfusion mismatches were noted. Unable to go for CTA s/t renal disease. Doppler lower extremity negative -This is unlikely pulmonary embolism -In the face of hemoptysis, heparin drip was discontinued October 19, 2018 -Maintain oxygen saturation above 92% -Appreciate input from pulmonary medicine, hematology History of recent CVA -Continue with aspirin, oral anticoagulation contraindicated due to hemoptysis and prior history of GI bleed. -PT to treat and eval Suspected endobronchial lesion right lower lobe per chest CT Patchy consolidative change in the left upper lobe Spiculated density in left lower lobe -Pulmonary medicine input appreciated, and status post bronchoscopy October -Currently on Azactam for possible pneumonia, pending cytology and sputum culture -Will need repeat CT chest in 2-4 weeks -Appreciate input from oncology Cough/? COPD exacerbation The patient has a cough with mucus production. Also has a 50-year smoking history. -Maintain oxygen saturation above 92% -Smoking cessation instruction. -We will discontinue IV doxycycline. -Continue prednisone 20 mg daily, DuoNeb as needed -incentive spirometry. Odynophagia-improving -consider UGI series and GI consultation PRN Chest pain-resolved Likely s/t above. Reproducible on exam. -trend trops. -telemetry. -pain control as needed. Hypertensive urgency/chronic CHF -Continue labetalol, amlodipine and adjust as needed. -clonidine as needed. Acute on chronic renal disease -Renal ultrasound pending -avoid nephrotoxins and monitor BUN and creatinine. -Nephrology consultation PRN PPx: B-SCDs Code Status: Full
[2018-10-21] MEDS: Senna/Docusate Sodium 8.6/50 MG Tablet PO SCH (12:56)
[2018-10-21] MEDS: predniSONE 20 MG Tablet PO SCH (12:56)
[2018-10-21] MEDS: amLODIPine 5 MG Tablet PO SCH (12:56)
[2018-10-21] MEDS: Budesonide-Formoterol 160/4.5 MCG 6 GM Inhaler INH SCH (12:57)
--- NOTE | 2018-10-21 14:21 | US ---
EXAM DATE: 10/21/2018 2:11 PM EST AGE/SEX: 73 years / Male INDICATIONS: Increased Bun and Creatinine. CLINICAL DATA: This is the patient's initial encounter. Patient reports that signs and symptoms have been present for 1 day and indicates a pain score of 0/10. MEDICAL/SURGICAL HISTORY: Hypertension. Renal failure, chronic. Hypertension. Stroke. Chronic s ystolic heart failure. Pacemaker. . Pacemaker. Bronchoscopy. COMPARISON: No prior exams available for comparison. MEASUREMENTS: Right Kidney:__7.6 x 4.2 x 3.6 cm Left Kidney:__4.5 x 3.1 x 2.3 cm FINDINGS: Right Kidney: There is increased echogenicity of the renal parenchyma. No evidence of hydronephrosis. There is a cyst along the lower pole measuring 1.5 cm. Left Kidney: Increased echogenicity. No mass or hydronephrosis. Bladder: Within normal limits given the degree of distension. Other: None. CONCLUSION: 1. The kidneys are small bilaterally, left greater than right with increased echogenicity of the ana al parenchyma characteristic of medical renal disease. 2. No evidence of hydronephrosis. 3. 1.5 cm cyst lower pole right kidney. Electronically signed by: Eddie Mayers MD Board Certified Radiologist 10/21/2018 2:19 PM EST
--- NOTE | 2018-10-21 14:42 | ECG ---
Date Performed: 10/20/2018 Time Performed: 16:49:17 PTAGE: 73 years EKG: Sinus rhythm WITH FIRST DEGREE AV BLOCK POSSIBLE RIGHT VENTRICULAR CONDUCTION DELAY LEFT VENTRICULAR HYPERTROPHY AND ST-T CHANGE ABNORMAL ECG Since the PREVIOUS TRACING , no significant change noted PREVIOUS TRACIN10/17/2018 12.33 DOCTOR: Yamile Corona Interpretating Date/Time 10/21/2018 14:37:15
[2018-10-22] MEDS: Budesonide-Formoterol 160/4.5 MCG 6 GM Inhaler INH SCH ×3 (00:03→21:44)
[2018-10-22] MEDS: Heparin - SQ 10,000 UNITS/ML Vial SQ SCH (00:05)
[2018-10-22] MEDS: Senna/Docusate Sodium 8.6/50 MG Tablet PO SCH ×3 (00:05→21:38)
[2018-10-22] MEDS: Dextrose 5%/NaCl 0.9% Inj 1,000 ML IV.CONT SCH ×2 (00:18→05:10)
[2018-10-22 03:43] LABS: Baso % (Auto) 0.1 % (0.0-2.0); Hemoglobin 9.2 gm/dL (13.0-17.0); Lymph # (Auto) 0.4 th/mm3 (1.0-4.8); Lymph % (Auto) 2.4 % (9.0-44.0); Mean Corpuscular HGB Conc 31.6 % (32.0-36.0); Mean Corpuscular Hemoglobin 27.3 pg (27.0-34.0); Mean Corpuscular Volume 86.3 fL (80.0-100.0); Mean Platelet Volume 7.6 fL (7.0-11.0); Mono # (Auto) 0.9 th/mm3 (0.0-0.9); Mono % (Auto) 6.3 % (0.0-8.0); Neut # (Auto) 13.5 th/mm3 (1.8-7.7); Neut % (Auto) 91.2 % (16.0-70.0); Platelet Count 222 th/mm3 (150-450); Red Blood Count 3.36 mil/mm3 (4.50-5.90); Red Cell Distribution Width 16.8 % (11.6-17.2); White Blood Count 14.8 th/mm3 (4.0-11.0)
[2018-10-22 04:11] LABS: Alanine Aminotransferase 13 U/L (12-78); Albumin 2.7 g/dL (3.4-5.0); Anion Gap 4 meq/L (5-15); Aspartate Aminotransferase 8 U/L (15-37); Blood Urea Nitrogen 41 mg/dL (7-18); Calcium 8.3 mg/dL (8.5-10.1); Carbon Dioxide 27.8 meq/L (21.0-32.0); Chloride 109 meq/L (98-107); Glomerular Filtration Rate 28 mL/min (>89); Glucose,Random 137 mg/dL (74-106); Potassium 4.8 meq/L (3.5-5.1); Sodium 141 meq/L (136-145)
[2018-10-22 04:14] LABS: Alkaline Phosphatase 56 U/L (45-117); Total Protein 6.1 g/dL (6.4-8.2)
--- NOTE | 2018-10-22 04:58 | XR ---
EXAM DATE: 10/22/2018 4:20 AM EST AGE/SEX: 73 years / Male INDICATIONS: Shortness of breath. CLINICAL DATA: This is the patient's subsequent encounter. Patient reports that signs and symptoms h ave been present for 4 - 6 days and indicates a pain score of Nonresponsive. MEDICAL/SURGICAL HISTORY: Hypertension. Chronic renal failure. Congestive heart failure. Smo ker. Stroke. Pacemaker. COMPARISON: [facility] – [place]ST 1V SINGLE AP, 10/19/2018. . FINDINGS: A pacing implement is present with control pack over left upper chest. Coarse interstitial prominence and mild streaky bibasilar parenchymal opacity reflects worsening from the prior exam. Cardiac conto urs are grossly unchanged CONCLUSION: Worsening aeration Electronically signed by: Magen Cruz MD Board Certified Radiologist 10/22/2018 4:57 AM EST
[2018-10-22] MEDS: predniSONE 20 MG Tablet PO SCH (09:00)
[2018-10-22] MEDS: amLODIPine 5 MG Tablet PO SCH (09:00)
--- NOTE | 2018-10-22 10:07 | P.PNIM ---
Subjective Interval history: Follow-up intermediate probability for pulmonary embolism/ pneumonia/recent CVA October 22, 2018patient seen and examined, still complains of sore throat discomfort, otherwise taking p.o. without any significant complication nausea and vomiting. Reports some slight episode of hemoptysis. Afebrile. Physical Exam Vital signs: Vital Signs 10/21/18 12:00 10/21/18 15:47 10/21/18 16:00 Temperature 97.0 F L 97.2 F L Pulse Rate 60 78 71 Respiratory Rate 18 18 16 Blood Pressure 170/82 H 151/72 H Pulse Oximetry 98 96 10/21/18 19:30 10/21/18 20:00 10/21/18 21:41 Temperature 97.9 F Pulse Rate 74 68 70 Respiratory Rate 18 18 Blood Pressure 146/70 H Pulse Oximetry 95 10/21/18 21:42 10/21/18 23:05 10/22/18 04:20 Temperature 98.2 F 99.0 F Pulse Rate 76 77 Respiratory Rate 18 18 Blood Pressure 139/71 152/75 H Pulse Oximetry 96 97 97 10/22/18 07:45 Temperature 97.9 F Pulse Rate 78 Respiratory Rate 16 Blood Pressure 142/70 H Pulse Oximetry 95 Intake & Output 10/21/18 10/22/18 10/22/18 18:59 06:59 18:59 Intake Total 1400 / 1400 1800 / 1800 Output Total 850 / 850 Balance 1400 / 1400 950 / 950 Weight 61.5 kg Intake: IV 400 / 400 1800 / 1800 D5W/Normal Saline Inj 1,000 ML 300 / 300 1000 / 1000 @ 75 mls/hr IV.CONT .[id number] [facility] Rx#:[id number] NS Inj 500 ML @ 30 mls/hr IV. 500 / 500 CONT .[id number] [facility] Rx#:[id number] Azactam Inj 1,000 MG In NS Inj 100 / 100 200 / 200 100 ML @ 200 mls/hr IV.SIG Q8H [facility] Rx#:[id number] Doxy 100 Inj 100 MG In NS Inj 100 / 100 100 ML @ 100 mls/hr IV.SIG Q12H [facility] Rx#:[id number] Oral 1000 / 1000 Output: Urine 850 / 850 Other: # Voids 3 Date of Last Bowel Movement 10/18/18 Narrative: GENERAL: This is an elderly male who is in no acute distress. SKIN: Warm and dry. Pacemaker in left upper chest. HEAD: Atraumatic. Normocephalic. EYES: Pupils equal and round. No scleral icterus. No injection or drainage. ENT: No nasal bleeding or discharge. Mucous membranes pink and moist. Hoarse voice. NECK: Trachea midline. No JVD. CARDIOVASCULAR: Regular rate and rhythm. No murmur appreciated. RESPIRATORY: No accessory muscle use. Inspiratory and expiratory wheezing noted bilaterally. GASTROINTESTINAL: Abdomen soft, non-tender, nondistended. Hepatic and splenic margins not palpable. MUSCULOSKELETAL: No obvious deformities. No clubbing. No cyanosis. No edema. NEUROLOGICAL: Awake and alert. Mild facial droop appreciated. Left-sided weakness. Results Labs CBC & Chem 7: 10/22/18 03:24 10/22/18 03:24 Labs: Microbiology 10/21/18 09:02 Bronchial Washings - Left Upper Lobe Fungal Smear - Final No fungal elements seen 10/21/18 09:02 Bronchial - Left Upper Lobe Gram Stain - Final 10/21/18 09:02 Bronchial Washings - Right Lower Lobe Fungal Smear - Final No fungal elements seen 10/21/18 09:02 Bronchial - Right Lower Lobe Gram Stain - Final 10/19/18 08:50 Sputum - Expectorated Sputum Gram Stain - Final 10/19/18 08:50 Sputum - Expectorated Sputum Sputum Culture - Final Imaging Imaging: Impressions Abdomen/Bladder Ultrasound 10/21/18 00:00 CONCLUSION: 1. The kidneys are small bilaterally, left greater than right with increased echogenicity of the renal parenchyma characteristic of medical renal disease. 2. No evidence of hydronephrosis. 3. 1.5 cm cyst lower pole right kidney. Chest X-Ray 10/22/18 00:00 CONCLUSION: Worsening aeration Assessment and Plan Plan 73-year-old man with Intermediate probability Pulmonary embolism The patient had a positive d-dimer and V/Q scan was intermediate probability for pulmonary embolism, although no ventilation/perfusion mismatches were noted. Unable to go for CTA s/t renal disease. Doppler lower extremity negative -This is unlikely pulmonary embolism -In the face of hemoptysis, heparin drip was discontinued October 19, 2018 -Maintain oxygen saturation above 92% -Appreciate input from pulmonary medicine, hematology History of recent CVA -Continue with aspirin, oral anticoagulation contraindicated due to hemoptysis and prior history of GI bleed. -PT to treat and eval Suspected endobronchial lesion right lower lobe per chest CT Patchy consolidative change in the left upper lobe Spiculated density in left lower lobe -Pulmonary medicine input appreciated, and status post bronchoscopy October pending biopsy -Currently on Azactam for pneumonia, pending cytology and sputum culture report -Will need repeat CT chest in 2-4 weeks -Appreciate input from oncology Cough/? COPD exacerbation The patient has a cough with mucus production. Also has a 50-year smoking history. -Maintain oxygen saturation above 92% -Smoking cessation instruction. -s/p IV doxycycline. -Continue prednisone 20 mg daily, DuoNeb as needed -incentive spirometry. Odynophagia-improving -consider UGI series and GI consultation PRN Chest pain-resolved Likely s/t above. Reproducible on exam. -trend trops. -telemetry. -pain control as needed. Hypertensive urgency/chronic CHF -Continue labetalol, amlodipine and adjust as needed. -clonidine as needed. Moderate to severe caloric nutritional deficiency Consider dietitian consult Ensure to current diet Acute on chronic renal disease -Renal ultrasound pending -avoid nephrotoxins and monitor BUN and creatinine. -Nephrology consultation PRN PPx: B-SCDs Code Status: Full
--- NOTE | 2018-10-22 12:21 | P.PNPL ---
Subjective Interval history: Patient is lying in bed in NAD. On room air oxygen, reports cough with bloody tinged sputum. s/p Bronch yesterday. Physical Exam Vital signs: Vital Signs 10/21/18 15:47 10/21/18 16:00 10/21/18 19:30 Temperature 97.2 F L 97.9 F Pulse Rate 78 71 74 Respiratory Rate 18 16 18 Blood Pressure 151/72 H 146/70 H Pulse Oximetry 96 95 10/21/18 20:00 10/21/18 21:41 10/21/18 21:42 Temperature Pulse Rate 68 70 Respiratory Rate 18 Blood Pressure Pulse Oximetry 96 10/21/18 23:05 10/22/18 04:20 10/22/18 07:45 Temperature 98.2 F 99.0 F 97.9 F Pulse Rate 76 77 78 Respiratory Rate 18 18 16 Blood Pressure 139/71 152/75 H 142/70 H Pulse Oximetry 97 97 95 10/22/18 11:55 Temperature 98.5 F Pulse Rate 78 Respiratory Rate 18 Blood Pressure 124/59 L Pulse Oximetry 95 Intake & Output 10/21/18 10/22/18 10/22/18 18:59 06:59 18:59 Intake Total 1400 / 1400 1800 / 1800 Output Total 850 / 850 Balance 1400 / 1400 950 / 950 Weight 61.5 kg Intake: IV 400 / 400 1800 / 1800 D5W/Normal Saline Inj 1,000 ML 300 / 300 1000 / 1000 @ 75 mls/hr IV.CONT .[id number] [facility] Rx#:[id number] NS Inj 500 ML @ 30 mls/hr IV. 500 / 500 CONT .[id number] ONE Rx#:[id number] Azactam Inj 1,000 MG In NS Inj 100 / 100 200 / 200 100 ML @ 200 mls/hr IV.SIG Q8H [facility] Rx#:[id number] Doxy 100 Inj 100 MG In NS Inj 100 / 100 100 ML @ 100 mls/hr IV.SIG Q12H [facility] Rx#:[id number] Oral 1000 / 1000 Output: Urine 850 / 850 Other: # Voids 3 1 Date of Last Bowel Movement 10/18/18 - Constitutional no acute distress - Routine HEENT Exam Head: Present: normocephalic, atraumatic Eye: Present: EOMI, PERRL, normal accommodation, conjunctivae pink ENT: Present: mucous membranes moist - Routine Neck Exam Present: supple, full ROM, trachea midline - Routine Respiratory Exam Present: CTA bilaterally - Routine Cardiovascular Exam Present: RRR, S1, S2 - Routine Abdominal Exam Present: soft, normoactive bowel sounds - Routine Extremities Exam Present: full ROM, pulses intact - Routine Skin Exam Present: intact - Routine Neurological Exam Present: alert, oriented X3, CN II-XII intact Assessment and Plan - Plan 1. Intermediate probability for pulmonary embolism. 2. Acute on chronic kidney disease. 3. Active tobacco use. 4. Hypertension. 5. CVA. 6. Anemia of chronic disease. 7. Systolic heart failure. 8. Patchy consolidative changes in the left upper lobe. Pleural-parenchymal density in the right lower lobe measures 4.3 x 3.0 cm. Spiculated density in the left lower lobe measures 15 x 11 mm. Plan Oxygen p.r.n. to maintain sats above 92%. Bronchodilators- on DuoNeb, Symbicort Continue prednisone at 20 mg daily. BiPAP p.r.n. for respiratory distress. V/Q scan showed intermediate prob for PE findings on V/Q scan likely related to obstructive lung disease. Doppler US LE negative for DVT s/p bronch with BAL: mucous plugs noted RLL and MARCIE suctioned to clear. No evidence of endobronchial lesions or bleeding. Follow up on BAL results CT chest 10/18: Patchy consolidative changes in the left upper lobe. Pleural- parenchymal density in the right lower lobe measures 4.3 x 3.0 cm. Spiculated density in the left lower lobe measures 15 x 11 mm. on Aztreonam ( Pt. is allergic to PCN), sputum culture: GNR. Will need repeat CT chest in 2-4 weeks as outpatient. Echo: EF 45-50% Monitor CBC, Heme is following Monitor renal function. Consider renal eval. Continue treatment plan
[2018-10-23] MEDS: amLODIPine 5 MG Tablet PO SCH (09:25)
[2018-10-23] MEDS: Budesonide-Formoterol 160/4.5 MCG 6 GM Inhaler INH SCH ×2 (09:25→20:18)
[2018-10-23] MEDS: predniSONE 20 MG Tablet PO SCH (09:25)
[2018-10-23] MEDS: Senna/Docusate Sodium 8.6/50 MG Tablet PO SCH ×2 (09:25→20:16)
--- NOTE | 2018-10-23 10:01 | P.PNIM ---
Subjective Interval history: Follow-up intermediate probability for pulmonary embolism/ patchy consolidative changes in the left upper lobe per CT/history of CVA October 23, 2018patient seen and examined, denies any chest pain, or significant shortness of breath. Only reports slight hemoptysis. Physical Exam Vital signs: Vital Signs 10/22/18 11:43 10/22/18 15:43 10/22/18 19:15 Temperature 97.7 F 97.9 F 98.5 F Pulse Rate 69 69 76 Respiratory Rate 16 18 18 Blood Pressure 140/66 135/63 130/60 Pulse Oximetry 95 96 95 10/22/18 20:00 10/22/18 20:37 10/22/18 23:10 Temperature 98.7 F Pulse Rate 77 81 90 Respiratory Rate 22 18 Blood Pressure 143/65 H Pulse Oximetry 95 10/23/18 00:00 10/23/18 03:45 10/23/18 03:55 Temperature 98.2 F Pulse Rate 67 66 66 Respiratory Rate 18 18 Blood Pressure 154/73 H Pulse Oximetry 95 10/23/18 04:00 10/23/18 08:00 10/23/18 09:44 Temperature 97.9 F Pulse Rate 63 66 72 Respiratory Rate 16 18 Blood Pressure 158/76 H Pulse Oximetry 96 Intake & Output 10/22/18 10/23/18 10/23/18 18:59 06:59 18:59 Intake Total 200 / 200 300 / 300 Output Total 310 / 310 1250 / 1250 Balance -110 / -110 -950 / -950 Weight 63.9 kg Intake: IV 200 / 200 300 / 300 Azactam Inj 1,000 MG In NS Inj 100 / 100 200 / 200 100 ML @ 200 mls/hr IV.SIG Q8H [facility] Rx#:[id number] Doxy 100 Inj 100 MG In NS Inj 100 / 100 100 / 100 100 ML @ 100 mls/hr IV.SIG Q12H [facility] Rx#:[id number] Output: Urine 310 / 310 1250 / 1250 Other: Date of Last Bowel Movement 10/18/18 Narrative: GENERAL: This is an elderly male who is in no acute distress. SKIN: Warm and dry. Pacemaker in left upper chest. HEAD: Atraumatic. Normocephalic. EYES: Pupils equal and round. No scleral icterus. No injection or drainage. ENT: No nasal bleeding or discharge. Mucous membranes pink and moist. Hoarse voice. NECK: Trachea midline. No JVD. CARDIOVASCULAR: Regular rate and rhythm. No murmur appreciated. RESPIRATORY: No accessory muscle use. Inspiratory and expiratory wheezing noted bilaterally. GASTROINTESTINAL: Abdomen soft, non-tender, nondistended. Hepatic and splenic margins not palpable. MUSCULOSKELETAL: No obvious deformities. No clubbing. No cyanosis. No edema. NEUROLOGICAL: Awake and alert. Mild facial droop appreciated. Left-sided weakness. Results Labs CBC & Chem 7: 10/22/18 03:24 10/22/18 03:24 Labs: Microbiology 10/21/18 09:02 Bronchial - Left Upper Lobe Gram Stain - Final 10/21/18 09:02 Bronchial - Left Upper Lobe Bronchial Culture - Preliminary Proteus species 10/21/18 09:02 Bronchial - Right Lower Lobe Gram Stain - Final 10/21/18 09:02 Bronchial - Right Lower Lobe Bronchial Culture - Preliminary Proteus species Assessment and Plan Plan 73-year-old man with Intermediate probability Pulmonary embolism The patient had a positive d-dimer and V/Q scan was intermediate probability for pulmonary embolism, although no ventilation/perfusion mismatches were noted. Unable to go for CTA s/t renal disease. Doppler lower extremity negative -This is unlikely pulmonary embolism -In the face of hemoptysis, heparin drip was discontinued October 19, 2018 -Maintain oxygen saturation above 92% -Appreciate input from pulmonary medicine, hematology History of recent CVA -Continue with aspirin, oral anticoagulation contraindicated due to hemoptysis and prior history of GI bleed. -PT to treat and eval Suspected endobronchial lesion right lower lobe per chest CT Patchy consolidative change in the left upper lobe Spiculated density in left lower lobe -Pulmonary medicine input appreciated, and status post bronchoscopy October pending biopsy -Currently on Azactam for pneumonia, pending cytology and sputum culture report -Will need repeat CT chest in 2-4 weeks -Appreciate input from oncology Cough/? COPD exacerbation-improving The patient has a cough with mucus production. Also has a 50-year smoking history. -Maintain oxygen saturation above 92% -Smoking cessation instruction. -s/p IV doxycycline. -Continue prednisone 20 mg daily, DuoNeb as needed -incentive spirometry. Odynophagia-improving -consider UGI series and GI consultation PRN Chest pain-resolved Likely s/t above. Reproducible on exam. -telemetry. -pain control as needed. Hypertensive urgency/chronic CHF -Continue labetalol, amlodipine and adjust as needed. -clonidine as needed. Moderate to severe caloric nutritional deficiency Consider dietitian consult Ensure to current diet Acute on chronic renal disease-now back to near baseline -Renal ultrasound without any evidence of hydronephrosis -avoid nephrotoxins and monitor BUN and creatinine. -Nephrology consultation PRN PPx: B-SCDs Code Status: Full
--- NOTE | 2018-10-23 19:32 | P.PNIM ---
Subjective Interval history: Follow-up probable PE Physical Exam Vital signs: Vital Signs 10/22/18 20:00 10/22/18 20:37 10/22/18 23:10 Temperature 98.7 F Pulse Rate 77 81 90 Respiratory Rate 22 18 Blood Pressure 143/65 H Pulse Oximetry 95 10/23/18 00:00 10/23/18 03:45 10/23/18 03:55 Temperature 98.2 F Pulse Rate 67 66 66 Respiratory Rate 18 18 Blood Pressure 154/73 H Pulse Oximetry 95 10/23/18 04:00 10/23/18 08:00 10/23/18 09:44 Temperature 97.9 F Pulse Rate 63 66 72 Respiratory Rate 16 18 Blood Pressure 158/76 H Pulse Oximetry 96 10/23/18 12:00 10/23/18 16:00 10/23/18 17:01 Temperature 98.6 F 97.6 F Pulse Rate 71 75 88 Respiratory Rate 16 16 18 Blood Pressure 134/63 126/80 Pulse Oximetry 96 94 L Intake & Output 10/23/18 10/23/18 10/24/18 06:59 18:59 06:59 Intake Total 300 / 300 Output Total 1250 / 1250 875 / 875 Balance -950 / -950 -875 / -875 Weight 63.9 kg Intake: IV 300 / 300 Azactam Inj 1,000 MG In NS Inj 200 / 200 100 ML @ 200 mls/hr IV.SIG Q8H [facility] Rx#:[id number] Doxy 100 Inj 100 MG In NS Inj 100 / 100 100 ML @ 100 mls/hr IV.SIG Q12H [facility] Rx#:[id number] Output: Urine 1250 / 1250 875 / 875 Narrative: GENERAL: This is an elderly male who is in no acute distress. SKIN: Warm and dry. Pacemaker in left upper chest. HEAD: Atraumatic. Normocephalic. EYES: Pupils equal and round. No scleral icterus. No injection or drainage. ENT: No nasal bleeding or discharge. Mucous membranes pink and moist. Hoarse voice. NECK: Trachea midline. No JVD. CARDIOVASCULAR: Regular rate and rhythm. No murmur appreciated. RESPIRATORY: No accessory muscle use. Inspiratory and expiratory wheezing noted bilaterally. GASTROINTESTINAL: Abdomen soft, non-tender, nondistended. Hepatic and splenic margins not palpable. MUSCULOSKELETAL: No obvious deformities. No clubbing. No cyanosis. No edema. NEUROLOGICAL: Awake and alert. Mild facial droop appreciated. Left-sided weakness. Results Labs CBC & Chem 7: 10/22/18 03:24 10/22/18 03:24 Labs: Microbiology 10/21/18 09:02 Bronchial - Left Upper Lobe Gram Stain - Final 10/21/18 09:02 Bronchial - Left Upper Lobe Bronchial Culture - Preliminary Proteus mirabilis 10/21/18 09:02 Bronchial - Right Lower Lobe Gram Stain - Final 10/21/18 09:02 Bronchial - Right Lower Lobe Bronchial Culture - Preliminary Proteus mirabilis Imaging Imaging: ITS Impressions Venous Doppler Study 10/17/18 00:00 CONCLUSION: 1. The study is negative for bilateral lower extremity deep venous thrombosis. Pulmonary Perfusion Imaging 10/17/18 13:32 CONCLUSION: 1. There are no ventilation/perfusion mismatches seen. However, there is segmental matched ventilatory and perfusion defects involving the posterior inferior lungs bilaterally. These matched defects, since they involve more than one segment and are seen more and more than one view, May this scan of intermediate probability for pulmonary embolism. Abdomen/Pelvis CT 10/18/18 00:00 CONCLUSION: 1. Constipation. 2. Right renal low-density. 3. Bilateral punctate renal calcifications likely vascular versus nonobstructing calculi. 4. Retrocrural adenopathy measures 15 mm, nonspecific. Chest CT 10/18/18 00:00 CONCLUSION: 1. Patchy consolidative changes in the left upper lobe. 2. Pleural-parenchymal density in the right lower lobe measures 4.3 x 3.0 cm. 3. Spiculated density in the left lower lobe measures 15 x 11 mm. 4. Suspected endobronchial lesion right lower lobe. Bronchoscopy may be warranted. 5. PET/CT scan recommended for biopsy planning. Abdomen/Bladder Ultrasound 10/21/18 00:00 CONCLUSION: 1. The kidneys are small bilaterally, left greater than right with increased echogenicity of the renal parenchyma characteristic of medical renal disease. 2. No evidence of hydronephrosis. 3. 1.5 cm cyst lower pole right kidney. Chest X-Ray 10/22/18 00:00 CONCLUSION: Worsening aeration Procedures Procedures: Bronch Assessment and Plan Plan 73-year-old man with Intermediate probability Pulmonary embolism The patient had a positive d-dimer and V/Q scan was intermediate probability for pulmonary embolism, although no ventilation/perfusion mismatches were noted. Unable to go for CTA s/t renal disease. Doppler lower extremity negative -This is unlikely pulmonary embolism -In the face of hemoptysis, heparin drip was discontinued October 19, 2018 -Maintain oxygen saturation above 92% -Appreciate input from pulmonary medicine, hematology History of recent CVA -Continue with aspirin, oral anticoagulation contraindicated due to hemoptysis and prior history of GI bleed. -PT to treat and eval Suspected endobronchial lesion right lower lobe per chest CT Patchy consolidative change in the left upper lobe Spiculated density in left lower lobe -Pulmonary medicine input appreciated, and status post bronchoscopy October pending biopsy -Currently on Azactam for pneumonia, pending cytology and sputum culture report -Will need repeat CT chest in 2-4 weeks -Appreciate input from oncology Cough/? COPD exacerbation-improving The patient has a cough with mucus production. Also has a 50-year smoking history. -Maintain oxygen saturation above 92% -Smoking cessation instruction. -s/p IV doxycycline. -Continue prednisone 20 mg daily, DuoNeb as needed -incentive spirometry. Odynophagia-improving -consider UGI series and GI consultation PRN Chest pain-resolved Likely s/t above. Reproducible on exam. -telemetry. -pain control as needed. Hypertensive urgency/chronic CHF -Continue labetalol, amlodipine and adjust as needed. -clonidine as needed. Moderate to severe caloric nutritional deficiency Consider dietitian consult Ensure to current diet Acute on chronic renal disease stage 4 -now back to near baseline -Renal ultrasound without any evidence of hydronephrosis -avoid nephrotoxins and monitor BUN and creatinine. -Nephrology consultation PRN PPx: B-SCDs Code Status: Full
[2018-10-24] MEDS: predniSONE 20 MG Tablet PO SCH (08:13)
[2018-10-24] MEDS: amLODIPine 5 MG Tablet PO SCH (08:13)
[2018-10-24] MEDS: Budesonide-Formoterol 160/4.5 MCG 6 GM Inhaler INH SCH ×2 (08:13→23:03)
[2018-10-24] MEDS: Senna/Docusate Sodium 8.6/50 MG Tablet PO SCH ×2 (08:13→23:02)
--- NOTE | 2018-10-24 11:26 | P.PN ---
Subjective Interval history: Complaints of sore throat and pains along the lower chest. Off oxygen. Coughing up pink mucous. Bronchial washing cytology still pending. Cultures noted. Physical Exam Vital signs: Vital Signs 10/23/18 12:00 10/23/18 16:00 10/23/18 17:01 Temperature 98.6 F 97.6 F Pulse Rate 71 75 88 Respiratory Rate 16 16 18 Blood Pressure 134/63 126/80 Pulse Oximetry 96 94 L 10/23/18 19:55 10/23/18 20:00 10/23/18 23:20 Temperature 98.6 F 99.5 F Pulse Rate 80 75 88 Respiratory Rate 18 18 Blood Pressure 120/57 L 124/68 Pulse Oximetry 95 95 10/24/18 00:06 10/24/18 04:00 10/24/18 04:03 Temperature 98.2 F Pulse Rate 66 72 76 Respiratory Rate 18 16 Blood Pressure 134/66 Pulse Oximetry 95 10/24/18 07:05 10/24/18 10:28 Temperature 98.7 F Pulse Rate 71 70 Respiratory Rate 18 20 Blood Pressure 155/74 H Pulse Oximetry 95 Intake & Output 10/23/18 10/24/18 10/24/18 18:59 06:59 18:59 Intake Total 400 / 400 Output Total 875 / 875 500 / 500 750 / 750 Balance -875 / -875 -100 / -100 -750 / -750 Weight 63.8 kg Intake: IV 400 / 400 Azactam Inj 1,000 MG In NS Inj 300 / 300 100 ML @ 200 mls/hr IV.SIG Q8H [facility] Rx#:[id number] Doxy 100 Inj 100 MG In NS Inj 100 / 100 100 ML @ 100 mls/hr IV.SIG Q12H [facility] Rx#:[id number] Output: Urine 875 / 875 500 / 500 750 / 750 Other: Date of Last Bowel Movement 10/23/18 10/23/18 GENERAL: Thinly built elderly man alert. SKIN: Warm and dry. HEAD: Atraumatic. Normocephalic. EYES: Pupils equal and round. No scleral icterus. No injection or drainage. ENT: No nasal bleeding or discharge. Throat is injected. mucous membranes pink and moist. NECK: Trachea midline. No JVD. CARDIOVASCULAR: Regular rate and rhythm. RESPIRATORY: No accessory muscle use. Bilateral expiratory wheezing. Breath sounds equal bilaterally. GASTROINTESTINAL: Abdomen soft, non-tender, nondistended. Hepatic and splenic margins not palpable. MUSCULOSKELETAL: Extremities without clubbing, cyanosis, or edema. No obvious deformities. NEUROLOGICAL: Awake and alert. No obvious cranial nerve deficits. Motor grossly within normal limits. PSYCHIATRIC: Appropriate mood and affect. Results - Labs CBC & Chem 7: 10/22/18 03:24 10/22/18 03:24 Laboratory Results - last 24 hr 10/24/18 08:12 POC Glucose 95 Microbiology 10/21/18 09:02 Bronchial - Left Upper Lobe Gram Stain - Final 10/21/18 09:02 Bronchial - Left Upper Lobe Bronchial Culture - Final Proteus mirabilis 10/21/18 09:02 Bronchial - Right Lower Lobe Gram Stain - Final 10/21/18 09:02 Bronchial - Right Lower Lobe Bronchial Culture - Final Proteus mirabilis - Procedures Bronch Assessment and Plan - Assessment (1) COPD (chronic obstructive pulmonary disease) Code(s): J44.9 - Chronic obstructive pulmonary disease, unspecified Status: Acute (2) Pneumonia Code(s): J18.9 - Pneumonia, unspecified organism Status: Acute (3) Hemoptysis Code(s): R04.2 - Hemoptysis Status: Acute (4) Pleuritic chest pain Code(s): R07.81 - Pleurodynia Status: Acute - Plan 1 await cytology from bronchial washings 2 continue antibiotic therapy as ordered 3. DuoNeb nebs 4 times daily. 4. Solu-Medrol 40 mg IV twice daily 5. O2 2 L nasal cannula 6. PFT with bronchodilator
[2018-10-24] MEDS ORDERED: Gabapentin 300 MG Capsule PO ONE (12:42)
--- NOTE | 2018-10-24 12:44 | P.PNONC ---
Subjective Interval history: Patient lying in bed, no acute distress. He reports continued throat pain. He also reports "annoying tingling" to his left arm and left leg since his CVA. Objective Vital Signs/Intake & Output: Vital Signs 10/23/18 16:00 10/23/18 17:01 10/23/18 19:55 Temperature 97.6 F 98.6 F Pulse Rate 75 88 80 Respiratory Rate 16 18 18 Blood Pressure 126/80 120/57 L Pulse Oximetry 94 L 95 10/23/18 20:00 10/23/18 23:20 10/24/18 00:06 Temperature 99.5 F Pulse Rate 75 88 66 Respiratory Rate 18 Blood Pressure 124/68 Pulse Oximetry 95 10/24/18 04:00 10/24/18 04:03 10/24/18 07:05 Temperature 98.2 F 98.7 F Pulse Rate 72 76 71 Respiratory Rate 18 16 18 Blood Pressure 134/66 155/74 H Pulse Oximetry 95 95 10/24/18 10:28 Temperature Pulse Rate 70 Respiratory Rate 20 Blood Pressure Pulse Oximetry Intake & Output 10/23/18 10/24/18 10/24/18 18:59 06:59 18:59 Intake Total 400 / 400 100 / 100 Output Total 875 / 875 500 / 500 750 / 750 Balance -875 / -875 -100 / -100 -650 / -650 Weight 63.8 kg Intake: IV 400 / 400 100 / 100 Azactam Inj 1,000 MG In NS Inj 300 / 300 100 ML @ 200 mls/hr IV.SIG Q8H NETTA Rx#:[id number] Doxy 100 Inj 100 MG In NS Inj 100 / 100 100 / 100 100 ML @ 100 mls/hr IV.SIG Q12H NETTA Rx#:[id number] Output: Urine 875 / 875 500 / 500 750 / 750 Other: Date of Last Bowel Movement 10/23/18 10/23/18 Result Diagrams: 10/22/18 03:24 10/22/18 03:24 Laboratory Results: Laboratory Results - last 24 hr 10/24/18 10/24/18 08:12 12:37 POC Glucose 95 132 H Culture Results: Microbiology 10/21/18 09:02 Gram Stain - Final Bronchial - Left Upper Lobe Bronchial Culture - Final Proteus mirabilis 10/21/18 09:02 Gram Stain - Final Bronchial - Right Lower Lobe Bronchial Culture - Final Proteus mirabilis 10/21/18 09:02 Fungal Smear - Final Bronchial Washings - Left Upper Lobe No fungal elements seen 10/21/18 09:02 Fungal Smear - Final Bronchial Washings - Right Lower Lobe No fungal elements seen 10/19/18 08:50 Gram Stain - Final Sputum - Expectorated Sputum Sputum Culture - Final Medications: Active Medications Generic Name Dose Route Start Last Admin Trade Name Freq PRN Reason Stop Dose Admin Hydrocodone Bitart/Acetaminophen 1 tab 10/17/18 16:01 10/17/18 19:21 [place] 5/325 PO 1 tab Q6H PRN Administration pain 3-10 Albuterol 1 ampul 10/18/18 13:00 10/24/18 10:27 Duoneb Neb (Netta) NEB 1 ampul Q6HR NEB NETTA Administration Amlodipine Besylate 5 mg 10/17/18 19:00 10/24/18 08:13 Norvasc PO 5 mg DAILY NETTA Administration Aspirin 81 mg 10/18/18 09:00 10/24/18 08:13 Ecotrin PO 81 mg DAILY NETTA Administration Budesonide/Formoterol Fumarate 2 puff 10/18/18 13:00 10/24/18 08:13 Symbicort 160/4.5 Mcg Inh INH 2 puff BID NETTA Administration Clonidine HCl 0.1 mg 10/17/18 17:35 10/17/18 18:43 Catapres PO 0.1 mg Q6H PRN Administration SBP> OR = 180, DBP> OR = 100 Heparin Sodium (Porcine) 5,000 units 10/20/18 21:00 10/22/18 00:05 Heparin Inj SQ Not Given Q12HR NETTA Doxycycline Hyclate 100 mg/ 100 mls @ 100 mls/hr 10/17/18 20:00 10/24/18 12: 37 Sodium Chloride IV.SIG Infused Q12H NETTA Infusion Aztreonam 1,000 mg/ Sodium 100 mls @ 200 mls/hr 10/21/18 13:00 10/24/18 12:37 Chloride IV.SIG 200 mls/hr Q8H NETTA Administration Labetalol HCl 300 mg 10/17/18 21:00 10/24/18 08:13 Trandate PO 300 mg BID NETTA Administration Prednisone 20 mg 10/19/18 09:00 02/18/19 08:13 Deltasone PO 20 mg DAILY NETTA Administration Senna/Docusate Sodium 1 tab 10/17/18 21:00 10/24/18 08:13 Faviola-Colace PO 1 tab BID NETTA Administration Sodium Chloride 2 ml 10/17/18 21:00 10/24/18 08:14 Ns Flush IV.FLUSH 2 ml BID NETTA Administration Objective Remarks: GENERAL: Thin, well-developed patient, no acute distress. SKIN: Warm and dry. HEAD: Normocephalic. EYES: No scleral icterus. No injection or drainage. NECK: Supple, trachea midline. CARDIOVASCULAR: + S1/S2, without murmurs. RESPIRATORY: Breath sounds diffuse rhonchi. Nonlabored at rest. GASTROINTESTINAL: Abdomen soft, non-tender, nondistended. EXTREMITIES: No cyanosis, or edema. MUSCULOSKELETAL: Adequate muscle tone. NEUROLOGICAL: No obvious focal deficit. Awake, alert, and oriented x3. PSYCHIATRIC: Appropriate mood and affect; insight and judgment normal. Assessment/Plan - Plan Mr. Jimenez is a pleasant 73-year-old male patient who presented to the hospital after a fall. 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 Patient had an indeterminate VQ scan and hematology was consulted. Plan: 1. Intermediate probability of pulmonary embolism on VQ scan, however CT chest revealed patchy consolidation changes in the left upper lobe, pleural parenchymal density in the right lower lobe measures 4.3 x 3.0 cm, spiculated density in the left lower lobe measures 15 x 11 mm. Suspected endobronchial lesion right lower lobe. Status post bronchoscopy. No endobronchial lesions noted, mucous plugs removed. Will repeat CT as an outpatient. 2. Subjectively reports continued throat pain. We will consult GI to consider EGD. 3. Continue DVT prophylaxis with subcu heparin. 4. Chronic tingling to left arm and left leg, will try Neurontin for symptom control. - Attending Statement The exam, history, and the medical decision-making described in the above note were completed with the assistance of the mid-level provider. I reviewed and agree with the findings presented. I attest that I had a [id number] encounter with the patient on the same day, and personally performed and documented my assessment and findings in the medical record.Still c/o dysphagia. SOB/cough stable. Brochoscopy did not show any endobronchial lesions. Cytology pending. Continue antibiotics for pneumonia. Will need repeat CT to monitor the left lung masses. Consult GI to evaluate dysphagia.
--- NOTE | 2018-10-24 13:49 | P.CONGI ---
History of Present Illness Consult date: 10/24/18 Consult reason: EGD Dysphagia with odynophagia Chief complaint: Pleuritic chest pain, possible pulmonary embolism History of Present Illness: Patient is a pleasant 73-year-old male with past medical history significant for chronic renal failure, heart failure, hypertension and CVA. Surgical history significant for defibrillator pacemaker placement and prostatectomy. Patient presented to [facility] emergency room with report of generalized weakness over the past week. Patient reports that his voice has become hoarse and raspy over the last 2 weeks. He endorses a cough with no fever he also endorses epigastric discomfort with a 50 pound weight loss over the last 3 months. Patient endorses dysphagia with pills and some solid foods accompanied by odynophagia. Patient is post CVA with left-sided weakness. Upon consultation, patient points to the left side of his throat that states he feels a dull ache with swallowing. Patient denies choking while drinking or eating. Denies any past history of EGD. Patient presently on aspirin, heparin stopped due to an episode of hemoptysis. Patient endorses that he smokes 1 pack/day cigarettes and drinks an occasional beer. Patient denies any known family history for gastrointestinal disorders. Patient denies diarrhea or constipation, denies hematochezia or melena stools. States no history of colonoscopy in the past. Our service has been consulted to evaluate patient for EGD due to her dysphagia and odynophagia. Review of Systems All other systems reviewed negative except as stated in HPI PMFSH - History History Provided By: Patient - Medical History Medical History: Medical History (Last Reviewed 10/20/18 @ 09:06 by Nay Boyer) Chronic renal disease Chronic systolic heart failure HTN (hypertension) Pacemaker Stroke - Family History Family History: Family History (Last Reviewed 10/20/18 @ 09:06 by Nay Boyer) Other Diabetes Hypertension - Tobacco History Second Hand Smoke Exposure: Yes Tobacco Use In Past 30 Days: Yes Smoking Status: Current every day smoker Tobacco Type: Cigarettes - Alcohol History How Often Do You Have a Drink Containing Alcohol: 2 to 3 times a week - Substance Use History Substance History: No History of Abuse - Travel History Recent Travel in the [place] Within the Last 8 Weeks: No Recent Travel Out of the Country Within the Last 8 Weeks: No - Immunization History Tetanus Immunization: Unsure Medications and Allergies Active Medications: Active Medications Acetaminophen (Tylenol) 650 mg PO Q4H PRN PRN Reason: Temp > 100.4, pain 1-2 Hydrocodone Bitart/Acetaminophen (Jackson 5/325) 1 tab PO Q6H PRN PRN Reason: pain 3-10 Last Admin: 10/17/18 19:21 Dose: 1 tab Albuterol (Duoneb Neb (Prn)) 1 ampul NEB Q2HR NEB PRN PRN Reason: DYSPNEA Albuterol (Duoneb Neb (Netta)) 1 ampul NEB Q6HR NEB [facility] Last Admin: 10/24/18 10:27 Dose: 1 ampul Amlodipine Besylate (Norvasc) 5 mg PO DAILY [facility] Last Admin: 10/24/18 08:13 Dose: 5 mg Aspirin (Ecotrin) 81 mg PO DAILY [facility] Last Admin: 10/24/18 08:13 Dose: 81 mg Budesonide/Formoterol Fumarate (Symbicort 160/4.5 Mcg Inh) 2 puff INH BID [facility] Last Admin: 10/24/18 08:13 Dose: 2 puff Clonidine HCl (Catapres) 0.1 mg PO Q6H PRN PRN Reason: SBP> OR = 180, DBP> OR = 100 Last Admin: 10/17/18 18:43 Dose: 0.1 mg Gabapentin (Neurontin) 300 mg PO ONCE ONE Stop: 10/24/18 12:43 Gabapentin (Neurontin) 300 mg PO BID [facility] Heparin Sodium (Porcine) (Heparin Inj) 5,000 units SQ Q12HR [facility] Last Admin: 10/22/18 00:05 Dose: Not Given Doxycycline Hyclate 100 mg/ (Sodium Chloride) 100 mls @ 100 mls/hr IV.SIG Q12H [facility] Last Infusion: 10/24/18 12:37 Dose: Infused Aztreonam 1,000 mg/ Sodium (Chloride) 100 mls @ 200 mls/hr IV.SIG Q8H [facility] Last Admin: 10/24/18 12:37 Dose: 200 mls/hr Labetalol HCl (Trandate) 300 mg PO BID [facility] Last Admin: 10/24/18 08:13 Dose: 300 mg Ondansetron HCl (Zofran Inj) 4 mg IV.PUSH Q6H PRN PRN Reason: NAUSEA OR VOMITING Prednisone (Deltasone) 20 mg PO DAILY [facility] Last Admin: 10/24/18 08:13 Dose: 20 mg Senna/Docusate Sodium (Faviola-Colace) 1 tab PO BID NETTA Last Admin: 10/24/18 08:13 Dose: 1 tab Sodium Chloride (Ns Flush) 2 ml IV.FLUSH BID [facility] Last Admin: 10/24/18 08:14 Dose: 2 ml Sodium Chloride (Ns Flush) 2 ml IV.FLUSH PRN PRN PRN Reason: FLUSH AFTER USING IV ACCESS Allergies Allergy/AdvReac Type Severity Reaction Status Date / Time penicillin G Allergy Severe RASH Verified 10/17/18 12:29 MRI PRECAUTION AdvReac Severe NON REVO Uncoded 09/05/17 17:07 PACEMAKER 07/13/13 Home Medications Medication Instructions Recorded Confirmed Type hydrocodone-acetaminophen [Jackson] 1 tab PO Q6H 10/17/18 10/17/18 History labetalol 300 mg PO TID 10/17/18 10/17/18 History Exam Vital signs: Vital Signs 10/23/18 16:00 10/23/18 17:01 10/23/18 19:55 Temperature 97.6 F 98.6 F Pulse Rate 75 88 80 Respiratory Rate 16 18 18 Blood Pressure 126/80 120/57 L Pulse Oximetry 94 L 95 10/23/18 20:00 10/23/18 23:20 10/24/18 00:06 Temperature 99.5 F Pulse Rate 75 88 66 Respiratory Rate 18 Blood Pressure 124/68 Pulse Oximetry 95 10/24/18 04:00 10/24/18 04:03 10/24/18 07:05 Temperature 98.2 F 98.7 F Pulse Rate 72 76 71 Respiratory Rate 18 16 18 Blood Pressure 134/66 155/74 H Pulse Oximetry 95 95 10/24/18 10:28 10/24/18 12:00 Temperature 97.7 F Pulse Rate 70 74 Respiratory Rate 20 18 Blood Pressure 125/67 Pulse Oximetry 95 Intake & Output 10/23/18 10/24/18 10/24/18 18:59 06:59 18:59 Intake Total 400 / 400 100 / 100 Output Total 875 / 875 500 / 500 1475 / 1475 Balance -875 / -875 -100 / -100 -1375 / -1375 Weight 63.8 kg Intake: IV 400 / 400 100 / 100 Azactam Inj 1,000 MG In NS Inj 300 / 300 100 ML @ 200 mls/hr IV.SIG Q8H NETTA Rx#:[id number] Doxy 100 Inj 100 MG In NS Inj 100 / 100 100 / 100 100 ML @ 100 mls/hr IV.SIG Q12H [facility] Rx#:[id number] Output: Urine 875 / 875 500 / 500 1475 / 1475 Other: Date of Last Bowel Movement 10/23/18 10/23/18 - Constitutional no acute distress, thin, chronically ill appearing, cooperative - Routine HEENT Exam Head: Present: normocephalic - Routine Neck Exam Present: trachea midline. Absent: tenderness - Routine Respiratory Exam Present: CTA bilaterally. Absent: accessory muscle use - Routine Cardiovascular Exam Present: RRR - Routine Abdominal Exam Present: soft, normoactive bowel sounds. Absent: tenderness, distended - Routine Extremities Exam Absent: edema - Routine Skin Exam Present: dry, warm Comments: Poor skin turgor - Routine Neurological Exam Present: alert, oriented X3 Results - Labs CBC & Chem 7: 10/24/18 14:30 10/24/18 14:30 Labs: Laboratory Results - last 24 hr 10/24/18 10/24/18 08:12 12:37 POC Glucose 95 132 H Assessment and Plan (1) Dysphagia Status: Acute Code(s): R13.10 - Dysphagia, unspecified (2) Odynophagia Status: Acute Code(s): R13.10 - Dysphagia, unspecified - Plan Patient is a pleasant 73-year-old male with past medical history significant for chronic renal failure, heart failure, hypertension and CVA. Surgical history significant for defibrillator pacemaker placement and prostatectomy. Patient presented to [facility] emergency room with report of generalized weakness over the past week. Patient reports that his voice has become hoarse and raspy over the last 2 weeks. He endorses a cough with no fever he also endorses epigastric discomfort with a 50 pound weight loss over the last 3 months. Patient endorses dysphagia with pills and some solid foods accompanied by odynophagia. Patient is post CVA with left-sided weakness. Upon consultation, patient points to the left side of his throat that states he feels a dull ache with swallowing. Patient denies choking while drinking or eating. Denies any past history of EGD. Patient presently on aspirin, heparin stopped due to an episode of hemoptysis. Patient endorses that he smokes 1 pack/day cigarettes and drinks an occasional beer. Patient denies any known family history for gastrointestinal disorders. Patient denies diarrhea or constipation, denies hematochezia or melena stools. States no history of colonoscopy in the past. Our service has been consulted to evaluate patient for EGD due to her dysphagia and odynophagia. 10/24/2018 upper GI series-- Swallowing is within normal limits. Normal caliber esophagus. The gastroesophageal junction is within normal limits. No reflux was demonstrated during the course of this exam. Grossly normal stomach. Plan Diet as tolerated Swallow evaluation by speech Aspiration precautions EGD to be done post swallow evaluation by speech therapy Supportive care Further recommendations to follow This patient has been seen by myself and Dr. Kothari and this note is written on his behalf - Attending Attestation Taye
[2018-10-24 15:53] LABS: Baso % (Auto) 0.2 % (0.0-2.0); Eos % (Auto) 0.1 % (0.0-4.0); Hematocrit 28.9 % (39.0-51.0); Hemoglobin 9.3 gm/dL (13.0-17.0); Lymph # (Auto) 0.3 th/mm3 (1.0-4.8); Lymph % (Auto) 5.2 % (9.0-44.0); Mean Corpuscular HGB Conc 32.2 % (32.0-36.0); Mean Corpuscular Hemoglobin 27.7 pg (27.0-34.0); Mean Corpuscular Volume 86.2 fL (80.0-100.0); Mean Platelet Volume 7.5 fL (7.0-11.0); Mono # (Auto) 0.3 th/mm3 (0.0-0.9); Mono % (Auto) 5.4 % (0.0-8.0); Neut # (Auto) 5.7 th/mm3 (1.8-7.7); Neut % (Auto) 89.1 % (16.0-70.0); Platelet Count 229 th/mm3 (150-450); Red Blood Count 3.36 mil/mm3 (4.50-5.90); Red Cell Distribution Width 17.5 % (11.6-17.2); White Blood Count 6.4 th/mm3 (4.0-11.0)
--- NOTE | 2018-10-24 15:59 | P.PNIM ---
Subjective Interval history: Follow-up pneumonia and odynophagia. Patient reports he continues to have blood-tinged sputum and odynophagia. He has chronic hoarseness since he had stroke. Discussed with GI and pulmonary Physical Exam Vital signs: Vital Signs 10/23/18 16:00 10/23/18 17:01 10/23/18 19:55 Temperature 97.6 F 98.6 F Pulse Rate 75 88 80 Respiratory Rate 16 18 18 Blood Pressure 126/80 120/57 L Pulse Oximetry 94 L 95 10/23/18 20:00 10/23/18 23:20 10/24/18 00:06 Temperature 99.5 F Pulse Rate 75 88 66 Respiratory Rate 18 Blood Pressure 124/68 Pulse Oximetry 95 10/24/18 04:00 10/24/18 04:03 10/24/18 07:05 Temperature 98.2 F 98.7 F Pulse Rate 72 76 71 Respiratory Rate 18 16 18 Blood Pressure 134/66 155/74 H Pulse Oximetry 95 95 10/24/18 10:28 10/24/18 12:00 Temperature 97.7 F Pulse Rate 70 74 Respiratory Rate 20 18 Blood Pressure 125/67 Pulse Oximetry 95 Intake & Output 10/23/18 10/24/18 10/24/18 18:59 06:59 18:59 Intake Total 400 / 400 100 / 100 Output Total 875 / 875 500 / 500 1475 / 1475 Balance -875 / -875 -100 / -100 -1375 / -1375 Weight 63.8 kg Intake: IV 400 / 400 100 / 100 Azactam Inj 1,000 MG In NS Inj 300 / 300 100 ML @ 200 mls/hr IV.SIG Q8H [facility] Rx#:[id number] Doxy 100 Inj 100 MG In NS Inj 100 / 100 100 / 100 100 ML @ 100 mls/hr IV.SIG Q12H [facility] Rx#:[id number] Output: Urine 875 / 875 500 / 500 1475 / 1475 Other: Date of Last Bowel Movement 10/23/18 10/23/18 Narrative: GENERAL: This is an elderly male who is in no acute distress. SKIN: Warm and dry. Pacemaker in left upper chest. CARDIOVASCULAR: Regular rate and rhythm. No murmur appreciated. RESPIRATORY: No accessory muscle use. GASTROINTESTINAL: Abdomen soft, non-tender, nondistended. MUSCULOSKELETAL: No obvious deformities. No clubbing. No cyanosis. No edema. NEUROLOGICAL: Awake and alert. Mild facial droop appreciated. Left-sided weakness. Results Labs CBC & Chem 7: 10/22/18 03:24 10/22/18 03:24 Labs: Microbiology 10/21/18 09:02 Bronchial - Left Upper Lobe Gram Stain - Final 10/21/18 09:02 Bronchial - Left Upper Lobe Bronchial Culture - Final Proteus mirabilis 10/21/18 09:02 Bronchial - Right Lower Lobe Gram Stain - Final 10/21/18 09:02 Bronchial - Right Lower Lobe Bronchial Culture - Final Proteus mirabilis Imaging Imaging: ITS Impressions Venous Doppler Study 10/17/18 00:00 CONCLUSION: 1. The study is negative for bilateral lower extremity deep venous thrombosis. Pulmonary Perfusion Imaging 10/17/18 13:32 CONCLUSION: 1. There are no ventilation/perfusion mismatches seen. However, there is segmental matched ventilatory and perfusion defects involving the posterior inferior lungs bilaterally. These matched defects, since they involve more than one segment and are seen more and more than one view, May this scan of intermediate probability for pulmonary embolism. Abdomen/Pelvis CT 10/18/18 00:00 CONCLUSION: 1. Constipation. 2. Right renal low-density. 3. Bilateral punctate renal calcifications likely vascular versus nonobstructing calculi. 4. Retrocrural adenopathy measures 15 mm, nonspecific. Chest CT 10/18/18 00:00 CONCLUSION: 1. Patchy consolidative changes in the left upper lobe. 2. Pleural-parenchymal density in the right lower lobe measures 4.3 x 3.0 cm. 3. Spiculated density in the left lower lobe measures 15 x 11 mm. 4. Suspected endobronchial lesion right lower lobe. Bronchoscopy may be warranted. 5. PET/CT scan recommended for biopsy planning. Abdomen/Bladder Ultrasound 10/21/18 00:00 CONCLUSION: 1. The kidneys are small bilaterally, left greater than right with increased echogenicity of the renal parenchyma characteristic of medical renal disease. 2. No evidence of hydronephrosis. 3. 1.5 cm cyst lower pole right kidney. Chest X-Ray 10/22/18 00:00 CONCLUSION: Worsening aeration Procedures Procedures: Bronch Assessment and Plan Plan 73-year-old man with Intermediate probability Pulmonary embolism The patient had a positive d-dimer and V/Q scan was intermediate probability for pulmonary embolism, although no ventilation/perfusion mismatches were noted. Unable to go for CTA s/t renal disease. Doppler lower extremity negative -This is unlikely pulmonary embolism -In the face of hemoptysis, heparin drip was discontinued October 19, 2018 -Maintain oxygen saturation above 92% -Appreciate input from pulmonary medicine, hematology History of recent CVA -Continue with aspirin, oral anticoagulation contraindicated due to hemoptysis and prior history of GI bleed. -PT to treat and eval Suspected endobronchial lesion right lower lobe per chest CT Patchy consolidative change in the left upper lobe Spiculated density in left lower lobe -Pulmonary medicine input appreciated, and status post bronchoscopy October pending biopsy -Bronchoscopy culture with Proteus will switch to Levaquin. Continue prednisone -Will need repeat CT chest in 2-4 weeks f/u Pleural-parenchymal density in the right lower lobe measures 4.3 x 3.0 cm.3. Spiculated density in the left lower lobe measures 15 x 11 mm.4. -Appreciate input from oncology Cough/? COPD exacerbation-improving The patient has a cough with mucus production. Also has a 50-year smoking history. -Maintain oxygen saturation above 92% -Smoking cessation instruction. -s/p IV doxycycline. -Continue prednisone 20 mg daily, DuoNeb as needed -incentive spirometry. Odynophagia-improving -Follow-up upper GI series for endoscopy tomorrow Chest pain-resolved Likely s/t above. Reproducible on exam. -telemetry. -pain control as needed. Hypertensive urgency/chronic CHF -Continue labetalol, amlodipine and adjust as needed. -clonidine as needed. Moderate to severe caloric nutritional deficiency Consider dietitian consult Ensure to current diet Acute on chronic renal disease stage 4 -now back to near baseline -Renal ultrasound without any evidence of hydronephrosis -avoid nephrotoxins and monitor BUN and creatinine. -Nephrology consultation PRN PPx: B-SCDs Code Status: Full Follow-up pending labs today Follow-up PT, rehab recommended
[2018-10-24 16:12] LABS: Albumin 2.5 g/dL (3.4-5.0); Anion Gap 9 meq/L (5-15); Aspartate Aminotransferase 8 U/L (15-37); Blood Urea Nitrogen 42 mg/dL (7-18); Calcium 8.4 mg/dL (8.5-10.1); Chloride 108 meq/L (98-107); Glomerular Filtration Rate 32 mL/min (>89); Glucose,Random 129 mg/dL (74-106); Potassium 4.9 meq/L (3.5-5.1); Sodium 141 meq/L (136-145)
[2018-10-24 16:13] LABS: Alanine Aminotransferase 15 U/L (12-78)
[2018-10-24 16:15] LABS: Alkaline Phosphatase 45 U/L (45-117); Total Protein 6.2 g/dL (6.4-8.2)
[2018-10-24] MEDS ORDERED: Metoprolol Tartrate 25 MG Tablet PO ONE (17:00)
[2018-10-24] MEDS ORDERED: Sodium Chlor 0.9% Inj 500 ML IV.CONT ONE (17:00)
[2018-10-24] MEDS ORDERED: Chlorhexidine Gluconate 2% 1 Pack (2 Cloths) TOPICAL ONE (17:00)
--- NOTE | 2018-10-24 17:01 | FL ---
EXAM DATE: 10/24/2018 3:48 PM EST AGE/SEX: 73 years / Male INDICATIONS: Dysphagia. CLINICAL DATA: This is the patient's initial encounter. Patient reports that signs and symptoms have been present for 1 week and indicates a pain score of 0/10. MEDICAL/SURGICAL HISTORY: Stroke. Cardiovascular disease. Hypertension. renal failure Pacem popeye. COMPARISON: No prior exams available for comparison. FLUORO TIME: 1.4 minutes. IMAGE COUNT: 9 RADIATION DOSE: 321.71 DAP FINDINGS: Swallowing is within normal limits. Normal caliber esophagus. The gastroesophageal junction is within normal limits. No reflux was demonstrated during the course of this exam. Grossly normal stomach. CONCLUSION; No acute abnormalities are demonstrated. Electronically signed by: Magen Thomas MD Board Certified Radiologist 10/24/2018 4:59 PM EST
[2018-10-25 05:58] LABS: Baso % (Auto) 0.3 % (0.0-2.0); Eos % (Auto) 0.1 % (0.0-4.0); Hematocrit 29.3 % (39.0-51.0); Hemoglobin 9.5 gm/dL (13.0-17.0); Lymph # (Auto) 0.9 th/mm3 (1.0-4.8); Lymph % (Auto) 12.6 % (9.0-44.0); Mean Corpuscular HGB Conc 32.6 % (32.0-36.0); Mean Corpuscular Hemoglobin 27.7 pg (27.0-34.0); Mean Corpuscular Volume 85.1 fL (80.0-100.0); Mean Platelet Volume 7.3 fL (7.0-11.0); Mono # (Auto) 0.8 th/mm3 (0.0-0.9); Mono % (Auto) 11.1 % (0.0-8.0); Neut # (Auto) 5.3 th/mm3 (1.8-7.7); Neut % (Auto) 75.9 % (16.0-70.0); Platelet Count 237 th/mm3 (150-450); Red Blood Count 3.45 mil/mm3 (4.50-5.90)
[2018-10-25] MEDS: predniSONE 20 MG Tablet PO SCH (08:23)
[2018-10-25] MEDS: Gabapentin 300 MG Capsule PO SCH ×2 (08:23→21:07)
[2018-10-25] MEDS: Senna/Docusate Sodium 8.6/50 MG Tablet PO SCH ×2 (08:23→21:07)
[2018-10-25] MEDS: amLODIPine 5 MG Tablet PO SCH (08:23)
[2018-10-25] MEDS: Budesonide-Formoterol 160/4.5 MCG 6 GM Inhaler INH SCH ×2 (08:24→21:07)
[2018-10-25] MEDS ORDERED: levoFLOXacin 750 MG Tablet PO SCH (11:00)
--- NOTE | 2018-10-25 11:16 | FL ---
EXAM DATE: 10/25/2018 11:01 AM EST AGE/SEX: 73 years / Male INDICATIONS: Dysphagia. CLINICAL DATA: This is the patient's initial encounter. Patient reports that signs and symptoms have been present for 2 weeks and indicates a pain score of 8/10. MEDICAL/SURGICAL HISTORY: Hypertension. Renal failure, chronic. Stroke. chronic systolic hea rt failure Pacemaker. COMPARISON: No prior exams available for comparison. FLUORO TIME: 1.0 IMAGE COUNT: 0 RADIATION DOSE: 10.03 DAP FINDINGS: A modified barium swallow was performed with speech pathology. Patient was given a variety of liquids to swallow. Poorly controlled oral phase. No aspiration demonstrated. For a full detailed report, see report by jarett french speech pathologist. CONCLUSION: Fluoroscopy services provided to the speech pathologist. Poorly controlled oral phase. No aspiration demonstrated. Electronically signed by: Magen Thomas MD Board Certified Radiologist 10/25/2018 11:14 AM EST
--- NOTE | 2018-10-25 12:33 | P.PN ---
Subjective Interval history: Went for video swallow test today. No hemoptysis or hematemesis. Bronchial wash cytology was negative for malignancy. Patient has some cough and wheezing Will need PET CT scan as outpatient. Physical Exam Vital signs: Vital Signs 10/24/18 16:00 10/24/18 16:57 10/24/18 20:00 Temperature 98.1 F Pulse Rate 67 90 79 Respiratory Rate 20 20 Blood Pressure 166/79 H Pulse Oximetry 100 10/24/18 21:09 10/24/18 21:22 10/25/18 00:21 Temperature 98.3 F 98.1 F Pulse Rate 80 86 80 Respiratory Rate 18 20 18 Blood Pressure 145/72 H 142/69 H Pulse Oximetry 96 95 10/25/18 04:00 10/25/18 04:47 10/25/18 06:08 Temperature 98.2 F Pulse Rate 73 71 70 Respiratory Rate 20 20 Blood Pressure 172/83 H Pulse Oximetry 96 10/25/18 08:00 10/25/18 08:33 10/25/18 11:30 Temperature 98.2 F 98.3 F Pulse Rate 69 73 74 Respiratory Rate 18 15 18 Blood Pressure 158/80 H 172/89 H Pulse Oximetry 96 96 Intake & Output 10/24/18 10/25/18 10/25/18 18:59 06:59 18:59 Intake Total 100 / 100 Output Total 1675 / 1675 300 / 300 Balance -1575 / -1575 -300 / -300 Weight 63.8 kg Intake: IV 100 / 100 Doxy 100 Inj 100 MG In NS Inj 100 / 100 100 ML @ 100 mls/hr IV.SIG Q12H EWELINA Rx#:[id number] Output: Urine 1675 / 1675 300 / 300 Other: # Voids 1 Date of Last Bowel Movement 10/23/18 10/23/18 10/23/18 GENERAL: Thin elderly -[place] male alert SKIN: Warm and dry. HEAD: Atraumatic. Normocephalic. EYES: Pupils equal and round. No scleral icterus. No injection or drainage. ENT: No nasal bleeding or discharge. Mucous membranes pink and moist. NECK: Trachea midline. No JVD. CARDIOVASCULAR: Regular rate and rhythm. RESPIRATORY: No accessory muscle use. Occasional wheezes scattered bilaterally. Breath sounds equal bilaterally. GASTROINTESTINAL: Abdomen soft, non-tender, nondistended. Hepatic and splenic margins not palpable. MUSCULOSKELETAL: Extremities without clubbing, cyanosis, or edema. No obvious deformities. NEUROLOGICAL: Awake and alert. No obvious cranial nerve deficits. Motor grossly within normal limits. PSYCHIATRIC: Appropriate mood and affect. Results - Labs CBC & Chem 7: 10/25/18 05:42 10/24/18 14:30 Laboratory Results - last 24 hr 10/24/18 10/24/18 10/24/18 12:37 14:30 14:30 WBC 6.4 RBC 3.36 L Hgb 9.3 L Hct 28.9 L MCV 86.2 MCH 27.7 MCHC 32.2 RDW 17.5 H Plt Count 229 MPV 7.5 Neut % (Auto) 89.1 H Lymph % (Auto) 5.2 L [place] % (Auto) 5.4 Eos % (Auto) 0.1 Baso % (Auto) 0.2 Neut # (Auto) 5.7 Lymph # (Auto) 0.3 L [place] # (Auto) 0.3 Eos # (Auto) 0.0 Baso # (Auto) 0.0 WBC Differential . Differential Comment Auto diff final Sodium 141 Potassium 4.9 Chloride 108 H Carbon Dioxide 24.0 Anion Gap 9 BUN 42 H Creatinine 2.43 H Estimated GFR 32 L POC Glucose 132 H Random Glucose 129 H Calcium 8.4 L Total Bilirubin 0.3 AST 8 L ALT 15 Alkaline Phosphatase 45 Total Protein 6.2 L Albumin 2.5 L 10/24/18 10/25/18 17:38 05:42 WBC 7.0 RBC 3.45 L Hgb 9.5 L Hct 29.3 L MCV 85.1 MCH 27.7 MCHC 32.6 RDW 17.0 Plt Count 237 MPV 7.3 Neut % (Auto) 75.9 H Lymph % (Auto) 12.6 [place] % (Auto) 11.1 H Eos % (Auto) 0.1 Baso % (Auto) 0.3 Neut # (Auto) 5.3 Lymph # (Auto) 0.9 L [place] # (Auto) 0.8 Eos # (Auto) 0.0 Baso # (Auto) 0.0 WBC Differential . Differential Comment Auto diff final Sodium Potassium Chloride Carbon Dioxide Anion Gap BUN Creatinine Estimated GFR POC Glucose 133 H Random Glucose Calcium Total Bilirubin AST ALT Alkaline Phosphatase Total Protein Albumin Microbiology 10/21/18 09:02 Bronchial Washings - Left Upper Lobe Acid Fast Bacilli Smear - Final No acid fast bacilli seen 10/21/18 09:02 Bronchial Washings - Bronchial Acid Fast Bacilli Smear - Final No acid fast bacilli seen 10/21/18 09:02 Bronchial - Left Upper Lobe Gram Stain - Final 10/21/18 09:02 Bronchial - Left Upper Lobe Bronchial Culture - Final Proteus mirabilis 10/21/18 09:02 Bronchial - Right Lower Lobe Gram Stain - Final 10/21/18 09:02 Bronchial - Right Lower Lobe Bronchial Culture - Final Proteus mirabilis - Imaging Impressions Videofluoroscopic Swallow 10/25/18 08:00 CONCLUSION: Fluoroscopy services provided to the speech pathologist. Poorly controlled oral phase. No aspiration demonstrated. Assessment and Plan - Assessment (1) COPD (chronic obstructive pulmonary disease) Code(s): J44.9 - Chronic obstructive pulmonary disease, unspecified Status: Acute (2) Pneumonia Code(s): J18.9 - Pneumonia, unspecified organism Status: Acute (3) Hemoptysis Code(s): R04.2 - Hemoptysis Status: Acute (4) Pleuritic chest pain Code(s): R07.81 - Pleurodynia Status: Acute - Plan 1 will need PET/CT scan as outpatient 2 continue antibiotic therapy as ordered 3. Continue DuoNeb nebs 4 times daily. 4. DC Solu-Medrol 5. O2 2 L nasal cannula as needed 6. Symbicort 160 x 4.5 mcg 2 puffs twice daily
--- NOTE | 2018-10-25 13:38 | P.PNGI ---
Subjective Interval history: Patient awake and alert Tolerating p.o. intake Continues to report pain left side of throat with swallowing Swallowing evaluation with speech therapy Physical Exam Vital signs: Vital Signs 10/24/18 16:00 10/24/18 16:57 10/24/18 20:00 Temperature 98.1 F Pulse Rate 67 90 79 Respiratory Rate 20 20 Blood Pressure 166/79 H Pulse Oximetry 100 10/24/18 21:09 10/24/18 21:22 10/25/18 00:21 Temperature 98.3 F 98.1 F Pulse Rate 80 86 80 Respiratory Rate 18 20 18 Blood Pressure 145/72 H 142/69 H Pulse Oximetry 96 95 10/25/18 04:00 10/25/18 04:47 10/25/18 06:08 Temperature 98.2 F Pulse Rate 73 71 70 Respiratory Rate 20 20 Blood Pressure 172/83 H Pulse Oximetry 96 10/25/18 08:00 10/25/18 08:33 10/25/18 11:30 Temperature 98.2 F 98.3 F Pulse Rate 69 73 74 Respiratory Rate 18 15 18 Blood Pressure 158/80 H 172/89 H Pulse Oximetry 96 96 Intake & Output 10/24/18 10/25/18 10/25/18 18:59 06:59 18:59 Intake Total 100 / 100 Output Total 1675 / 1675 300 / 300 Balance -1575 / -1575 -300 / -300 Weight 63.8 kg Intake: IV 100 / 100 Doxy 100 Inj 100 MG In NS Inj 100 / 100 100 ML @ 100 mls/hr IV.SIG Q12H EWELINA Rx#:[id number] Output: Urine 1675 / 1675 300 / 300 Other: # Voids 1 Date of Last Bowel Movement 10/23/18 10/23/18 10/23/18 - Constitutional no acute distress - Routine HEENT Exam Head: Present: normocephalic ENT: Present: mucous membranes moist - Routine Neck Exam Present: supple - Routine Respiratory Exam Present: CTA bilaterally. Absent: accessory muscle use - Routine Cardiovascular Exam Present: RRR - Routine Abdominal Exam Present: soft, normoactive bowel sounds. Absent: tenderness, distended - Routine Extremities Exam Absent: edema - Routine Skin Exam Present: dry, warm - Routine Neurological Exam Present: alert, oriented X3 Results - Labs CBC & Chem 7: 10/25/18 05:42 10/24/18 14:30 Laboratory Results - last 24 hr 10/24/18 10/24/18 10/24/18 14:30 14:30 17:38 WBC 6.4 RBC 3.36 L Hgb 9.3 L Hct 28.9 L MCV 86.2 MCH 27.7 MCHC 32.2 RDW 17.5 H Plt Count 229 MPV 7.5 Neut % (Auto) 89.1 H Lymph % (Auto) 5.2 L [place] % (Auto) 5.4 Eos % (Auto) 0.1 Baso % (Auto) 0.2 Neut # (Auto) 5.7 Lymph # (Auto) 0.3 L [place] # (Auto) 0.3 Eos # (Auto) 0.0 Baso # (Auto) 0.0 WBC Differential . Differential Comment Auto diff final Sodium 141 Potassium 4.9 Chloride 108 H Carbon Dioxide 24.0 Anion Gap 9 BUN 42 H Creatinine 2.43 H Estimated GFR 32 L POC Glucose 133 H Random Glucose 129 H Calcium 8.4 L Total Bilirubin 0.3 AST 8 L ALT 15 Alkaline Phosphatase 45 Total Protein 6.2 L Albumin 2.5 L 10/25/18 05:42 WBC 7.0 RBC 3.45 L Hgb 9.5 L Hct 29.3 L MCV 85.1 MCH 27.7 MCHC 32.6 RDW 17.0 Plt Count 237 MPV 7.3 Neut % (Auto) 75.9 H Lymph % (Auto) 12.6 [place] % (Auto) 11.1 H Eos % (Auto) 0.1 Baso % (Auto) 0.3 Neut # (Auto) 5.3 Lymph # (Auto) 0.9 L [place] # (Auto) 0.8 Eos # (Auto) 0.0 Baso # (Auto) 0.0 WBC Differential . Differential Comment Auto diff final Sodium Potassium Chloride Carbon Dioxide Anion Gap BUN Creatinine Estimated GFR POC Glucose Random Glucose Calcium Total Bilirubin AST ALT Alkaline Phosphatase Total Protein Albumin Microbiology 10/21/18 09:02 Bronchial Washings - Left Upper Lobe Acid Fast Bacilli Smear - Final No acid fast bacilli seen 10/21/18 09:02 Bronchial Washings - Bronchial Acid Fast Bacilli Smear - Final No acid fast bacilli seen 10/21/18 09:02 Bronchial - Left Upper Lobe Gram Stain - Final 10/21/18 09:02 Bronchial - Left Upper Lobe Bronchial Culture - Final Proteus mirabilis 10/21/18 09:02 Bronchial - Right Lower Lobe Gram Stain - Final 10/21/18 09:02 Bronchial - Right Lower Lobe Bronchial Culture - Final Proteus mirabilis - Imaging Impressions Videofluoroscopic Swallow 10/25/18 08:00 CONCLUSION: Fluoroscopy services provided to the speech pathologist. Poorly controlled oral phase. No aspiration demonstrated. Assessment and Plan (1) Dysphagia Status: Acute Code(s): R13.10 - Dysphagia, unspecified (2) Odynophagia Status: Acute Code(s): R13.10 - Dysphagia, unspecified - Plan Patient is a pleasant 73-year-old male with past medical history significant for chronic renal failure, heart failure, hypertension and CVA. Surgical history significant for defibrillator pacemaker placement and prostatectomy. Patient presented to [facility] emergency room with report of generalized weakness over the past week. Patient reports that his voice has become hoarse and raspy over the last 2 weeks. He endorses a cough with no fever he also endorses epigastric discomfort with a 50 pound weight loss over the last 3 months. Patient endorses dysphagia with pills and some solid foods accompanied by odynophagia. Patient is post CVA with left-sided weakness. Upon consultation, patient points to the left side of his throat that states he feels a dull ache with swallowing. Patient denies choking while drinking or eating. Denies any past history of EGD. Patient presently on aspirin, heparin stopped due to an episode of hemoptysis. Patient endorses that he smokes 1 pack/day cigarettes and drinks an occasional beer. Patient denies any known family history for gastrointestinal disorders. Patient denies diarrhea or constipation, denies hematochezia or melena stools. States no history of colonoscopy in the past. Our service has been consulted to evaluate patient for EGD due to her dysphagia and odynophagia. 10/24/2018 upper GI series-- Swallowing is within normal limits. Normal caliber esophagus. The gastroesophageal junction is within normal limits. No reflux was demonstrated during the course of this exam. Grossly normal stomach. 10/25/2018 Dysphagia with odynophagia Videofluoroscopic swallow: Fluoroscopy services provided to the speech pathologist. Poorly controlled oral phase. No aspiration demonstrated. Patient in no acute distress WBC 7.0 hemoglobin 9.5 hematocrit 29.3 Plan Diet as tolerated NPO after MN Aspiration precautions EGD 10/26/18 Supportive care Further recommendations to follow This patient has been seen by myself and Dr. Kothari and this note is written on his behalf - Attending Attestation Dr. Kothari
--- NOTE | 2018-10-25 14:17 | P.PNONC ---
Subjective Interval history: Patient seen earlier in the day. Patient lying in bed alert and in no acute distress. Continues to have discomfort in his throat. States that he has had his swallow evaluation. Reports that the pain in his throat is more intense with his heartbeat. States he has not noticed an improvement in the tingling discomfort in left upper and lower extremity. Objective Vital Signs/Intake & Output: Vital Signs 10/24/18 16:00 10/24/18 16:57 10/24/18 20:00 Temperature 98.1 F Pulse Rate 67 90 79 Respiratory Rate 20 20 Blood Pressure 166/79 H Pulse Oximetry 100 10/24/18 21:09 10/24/18 21:22 10/25/18 00:21 Temperature 98.3 F 98.1 F Pulse Rate 80 86 80 Respiratory Rate 18 20 18 Blood Pressure 145/72 H 142/69 H Pulse Oximetry 96 95 10/25/18 04:00 10/25/18 04:47 10/25/18 06:08 Temperature 98.2 F Pulse Rate 73 71 70 Respiratory Rate 20 20 Blood Pressure 172/83 H Pulse Oximetry 96 10/25/18 08:00 10/25/18 08:33 10/25/18 11:30 Temperature 98.2 F 98.3 F Pulse Rate 69 73 74 Respiratory Rate 18 15 18 Blood Pressure 158/80 H 172/89 H Pulse Oximetry 96 96 Intake & Output 10/24/18 10/25/18 10/25/18 18:59 06:59 18:59 Intake Total 100 / 100 Output Total 1675 / 1675 300 / 300 Balance -1575 / -1575 -300 / -300 Weight 63.8 kg Intake: IV 100 / 100 Doxy 100 Inj 100 MG In NS Inj 100 / 100 100 ML @ 100 mls/hr IV.SIG Q12H NETTA Rx#:[id number] Output: Urine 1675 / 1675 300 / 300 Other: # Voids 1 Date of Last Bowel Movement 10/23/18 10/23/18 10/23/18 Result Diagrams: 10/25/18 05:42 10/24/18 14:30 Laboratory Results: Laboratory Results - last 24 hr 10/24/18 10/24/18 10/24/18 14:30 14:30 17:38 WBC 6.4 RBC 3.36 L Hgb 9.3 L Hct 28.9 L MCV 86.2 MCH 27.7 MCHC 32.2 RDW 17.5 H Plt Count 229 MPV 7.5 Neut % (Auto) 89.1 H Lymph % (Auto) 5.2 L [place] % (Auto) 5.4 Eos % (Auto) 0.1 Baso % (Auto) 0.2 Neut # (Auto) 5.7 Lymph # (Auto) 0.3 L [place] # (Auto) 0.3 Eos # (Auto) 0.0 Baso # (Auto) 0.0 WBC Differential . Differential Comment Auto diff final Sodium 141 Potassium 4.9 Chloride 108 H Carbon Dioxide 24.0 Anion Gap 9 BUN 42 H Creatinine 2.43 H Estimated GFR 32 L POC Glucose 133 H Random Glucose 129 H Calcium 8.4 L Total Bilirubin 0.3 AST 8 L ALT 15 Alkaline Phosphatase 45 Total Protein 6.2 L Albumin 2.5 L 10/25/18 05:42 WBC 7.0 RBC 3.45 L Hgb 9.5 L Hct 29.3 L MCV 85.1 MCH 27.7 MCHC 32.6 RDW 17.0 Plt Count 237 MPV 7.3 Neut % (Auto) 75.9 H Lymph % (Auto) 12.6 [place] % (Auto) 11.1 H Eos % (Auto) 0.1 Baso % (Auto) 0.3 Neut # (Auto) 5.3 Lymph # (Auto) 0.9 L [place] # (Auto) 0.8 Eos # (Auto) 0.0 Baso # (Auto) 0.0 WBC Differential . Differential Comment Auto diff final Sodium Potassium Chloride Carbon Dioxide Anion Gap BUN Creatinine Estimated GFR POC Glucose Random Glucose Calcium Total Bilirubin AST ALT Alkaline Phosphatase Total Protein Albumin Culture Results: Microbiology 10/21/18 09:02 Acid Fast Bacilli Smear - Final Bronchial Washings - Left Upper Lobe No acid fast bacilli seen 10/21/18 09:02 Acid Fast Bacilli Smear - Final Bronchial Washings - Bronchial No acid fast bacilli seen 10/21/18 09:02 Gram Stain - Final Bronchial - Left Upper Lobe Bronchial Culture - Final Proteus mirabilis 10/21/18 09:02 Gram Stain - Final Bronchial - Right Lower Lobe Bronchial Culture - Final Proteus mirabilis Imaging Studies: Impressions Videofluoroscopic Swallow 10/25/18 08:00 CONCLUSION: Fluoroscopy services provided to the speech pathologist. Poorly controlled oral phase. No aspiration demonstrated. Medications: Active Medications Generic Name Dose Route Start Last Admin Trade Name Freq PRN Reason Stop Dose Admin Hydrocodone Bitart/Acetaminophen 1 tab 10/17/18 16:01 10/17/18 19:21 [place] 5/325 PO 1 tab Q6H PRN Administration pain 3-10 Albuterol 1 ampul 10/18/18 13:00 10/25/18 08:32 Duoneb Neb (Netta) NEB 1 ampul Q6HR NEB NETTA Administration Amlodipine Besylate 5 mg 10/17/18 19:00 10/25/18 08:23 Norvasc PO 5 mg DAILY NETTA Administration Aspirin 81 mg 10/18/18 09:00 10/24/18 08:13 Ecotrin PO 81 mg DAILY NETTA Administration Budesonide/Formoterol Fumarate 2 puff 10/18/18 13:00 10/25/18 08:24 Symbicort 160/4.5 Mcg Inh INH 2 puff BID NETTA Administration Clonidine HCl 0.1 mg 10/17/18 17:35 10/17/18 18:43 Catapres PO 0.1 mg Q6H PRN Administration SBP> OR = 180, DBP> OR = 100 Gabapentin 300 mg 10/25/18 09:00 10/25/18 08:23 Neurontin PO 300 mg BID [facility] Administration Heparin Sodium (Porcine) 5,000 units 10/20/18 21:00 10/22/18 00:05 Heparin Inj SQ Not Given Q12HR NETTA Labetalol HCl 300 mg 10/17/18 21:00 10/25/18 08:23 Trandate PO 300 mg BID NETAT Administration Levofloxacin 750 mg 10/25/18 11:00 10/25/18 12:05 Levaquin PO 750 mg Q48H NETTA Administration Prednisone 20 mg 10/19/18 09:00 10/25/18 08:23 Deltasone PO 20 mg DAILY NETTA Administration Senna/Docusate Sodium 1 tab 10/17/18 21:00 10/25/18 08:23 Faviola-Colace PO 1 tab BID [facility] Administration Sodium Chloride 2 ml 10/17/18 21:00 10/24/18 23:11 Ns Flush IV.FLUSH 2 ml BID NETTA Administration Objective Remarks: GENERAL: Thin, well-developed patient, no acute distress. SKIN: Warm and dry. HEAD: Normocephalic. EYES: No scleral icterus. No injection or drainage. NECK: Supple, trachea midline. CARDIOVASCULAR: Regular rate and rhythm, without murmurs. RESPIRATORY: Anterior breath sounds clear and equal bilaterally. Nonlabored at rest. GASTROINTESTINAL: Abdomen soft, non-tender, nondistended. EXTREMITIES: No cyanosis, or edema. MUSCULOSKELETAL: Adequate muscle tone. NEUROLOGICAL: No obvious focal deficit. Awake, alert, and oriented x3. PSYCHIATRIC: Appropriate mood and affect; insight and judgment normal. Assessment/Plan - Plan Mr. Jimenez is a pleasant 73-year-old male patient who presented to the hospital after a fall. 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 Patient had an indeterminate VQ scan and hematology was consulted. Plan: 1. Intermediate probability of pulmonary embolism on VQ scan, however CT chest revealed patchy consolidation changes in the left upper lobe, pleural parenchymal density in the right lower lobe measures 4.3 x 3.0 cm, spiculated density in the left lower lobe measures 15 x 11 mm. Suspected endobronchial lesion right lower lobe. Status post bronchoscopy 10/21/2018. No endobronchial lesions noted, mucous plugs removed. Will repeat CT as an outpatient. 2. Subjectively reports continued throat pain. Patient is being followed by GI. Today patient stated that he can feel intensified pain in his throat with his heartbeat, will order carotid ultrasound. 3. Continue DVT prophylaxis with subcu heparin. Noted to be currently on hold related to procedures. 4. Chronic tingling to left arm and left leg, continue with Neurontin. May take a few doses before patient feels improvement. - Attending Statement The exam, history, and the medical decision-making described in the above note were completed with the assistance of the mid-level provider. I reviewed and agree with the findings presented. I attest that I had a [id number] encounter with the patient on the same day, and personally performed and documented my assessment and findings in the medical record. Patient still complained of sore throat. Swallow evaluation was unremarkable. He is awaiting upper endoscopy. He still has some shortness of breath and cough. I have reviewed the CT scan with radiologist at the tumor board. The left lung lesion will need to be followed closely. He will need repeat CT of the chest as outpatient.
--- NOTE | 2018-10-25 15:38 | P.PNIM ---
Subjective Interval history: Follow-up odynophagia. Not clear if patient underwent EGD today will clarify with GI. Upper GI series within normal limits. Barium swallow performed awaiting speech therapy report Physical Exam Vital signs: Vital Signs 10/24/18 16:00 10/24/18 16:57 10/24/18 20:00 Temperature 98.1 F Pulse Rate 67 90 79 Respiratory Rate 20 20 Blood Pressure 166/79 H Pulse Oximetry 100 10/24/18 21:09 10/24/18 21:22 10/25/18 00:21 Temperature 98.3 F 98.1 F Pulse Rate 80 86 80 Respiratory Rate 18 20 18 Blood Pressure 145/72 H 142/69 H Pulse Oximetry 96 95 10/25/18 04:00 10/25/18 04:47 10/25/18 06:08 Temperature 98.2 F Pulse Rate 73 71 70 Respiratory Rate 20 20 Blood Pressure 172/83 H Pulse Oximetry 96 10/25/18 08:00 10/25/18 08:33 10/25/18 11:30 Temperature 98.2 F 98.3 F Pulse Rate 69 73 74 Respiratory Rate 18 15 18 Blood Pressure 158/80 H 172/89 H Pulse Oximetry 96 96 Intake & Output 10/24/18 10/25/18 10/25/18 18:59 06:59 18:59 Intake Total 100 / 100 Output Total 1675 / 1675 300 / 300 Balance -1575 / -1575 -300 / -300 Weight 63.8 kg Intake: IV 100 / 100 Doxy 100 Inj 100 MG In NS Inj 100 / 100 100 ML @ 100 mls/hr IV.SIG Q12H EWELINA Rx#:[id number] Output: Urine 1675 / 1675 300 / 300 Other: # Voids 1 Date of Last Bowel Movement 10/23/18 10/23/18 10/23/18 Narrative: GENERAL: Well-developed and well-nourished with chronic hoarseness SKIN: Warm and dry. HEAD: Normocephalic. EYES: No scleral icterus. No injection or drainage. NECK: Supple, trachea midline. No JVD or lymphadenopathy. CARDIOVASCULAR: Regular rate and rhythm without murmurs, gallops, or rubs. RESPIRATORY: Breath sounds equal bilaterally. No accessory muscle use. GASTROINTESTINAL: Abdomen soft, non-tender, nondistended. MUSCULOSKELETAL: No cyanosis, or edema. BACK: Nontender without obvious deformity. No CVA tenderness. Alert and oriented with chronic left-sided weakness Results Labs CBC & Chem 7: 10/25/18 05:42 10/24/18 14:30 Labs: Microbiology 10/21/18 09:02 Bronchial Washings - Left Upper Lobe Acid Fast Bacilli Smear - Final No acid fast bacilli seen 10/21/18 09:02 Bronchial Washings - Bronchial Acid Fast Bacilli Smear - Final No acid fast bacilli seen 10/21/18 09:02 Bronchial - Left Upper Lobe Gram Stain - Final 10/21/18 09:02 Bronchial - Left Upper Lobe Bronchial Culture - Final Proteus mirabilis 10/21/18 09:02 Bronchial - Right Lower Lobe Gram Stain - Final 10/21/18 09:02 Bronchial - Right Lower Lobe Bronchial Culture - Final Proteus mirabilis Imaging Imaging: Impressions Videofluoroscopic Swallow 10/25/18 08:00 CONCLUSION: Fluoroscopy services provided to the speech pathologist. Poorly controlled oral phase. No aspiration demonstrated. Procedures Procedures: Bronchoscopy Assessment and Plan Plan 73-year-old man with Intermediate probability Pulmonary embolism The patient had a positive d-dimer and V/Q scan was intermediate probability for pulmonary embolism, although no ventilation/perfusion mismatches were noted. Unable to go for CTA s/t renal disease. Doppler lower extremity negative -This is unlikely pulmonary embolism -In the face of hemoptysis, heparin drip was discontinued October 19, 2018 -Maintain oxygen saturation above 92% -Appreciate input from pulmonary medicine, hematology History of recent CVA -Continue with aspirin, oral anticoagulation contraindicated due to hemoptysis and prior history of GI bleed. -PT to treat and eval Suspected endobronchial lesion right lower lobe per chest CT Patchy consolidative change in the left upper lobe Spiculated density in left lower lobe -Pulmonary medicine input appreciated, and status post bronchoscopy October cytology negative -Bronchoscopy culture with Proteus switched to Levaquin. Discontinue prednisone -Will need repeat CT chest in 2-4 weeks f/u Pleural-parenchymal density in the right lower lobe measures 4.3 x 3.0 cm.3. Spiculated density in the left lower lobe measures 15 x 11 mm.4. -Appreciate input from oncology Cough/? COPD exacerbation-improving The patient has a cough with mucus production. Also has a 50-year smoking history. -Maintain oxygen saturation above 92% -Smoking cessation instruction. -s/p IV doxycycline. -Discontinue prednisone 20 mg daily. Continue DuoNeb as needed -incentive spirometry. Odynophagia-improving -Unremarkable upper GI series. Barium swallow performed awaiting speech therapy report. For EGD Chest pain-resolved Likely s/t above. Reproducible on exam. -telemetry. -pain control as needed. Hypertensive urgency/chronic CHF -Continue labetalol, increase amlodipine for better control and adjust as needed. -clonidine as needed. Moderate to severe caloric nutritional deficiency Consider dietitian consult Ensure to current diet Acute on chronic renal disease stage 4 -now back to near baseline -Renal ultrasound without any evidence of hydronephrosis -avoid nephrotoxins and monitor BUN and creatinine. -Nephrology consultation PRN PPx: B-SCDs Code Status: Full Rehab when cleared by GI
--- NOTE | 2018-10-25 16:12 | US ---
EXAM DATE: 10/25/2018 4:00 PM EST AGE/SEX: 73 years / Male INDICATIONS: Bruit. CLINICAL DATA: This is the patient's initial encounter. Patient reports that signs and symptoms have been present for 1 day and indicates a pain score of 1/10. MEDICAL/SURGICAL HISTORY: Hypertension. Chronic renal failure. Chronic systolic heart failure. Stroke. Pacemaker. COMPARISON: [facility] [place], [place] CAROTID ARTERIES, 11/23/2015. . VELOCITY PARAMETERS: ICA/CCA Ratio: Right 1.8 , Left 1.3 ICA: Right 161 cm/sec, Left 119 cm/sec CCA: Right 89 cm/sec, Left 94 cm/sec ECA: Right 178 cm/sec, Left 85 cm/sec Vertebral: Right 14 cm/sec antegrade, Left 59 cm/sec antegrade FINDINGS: Right Carotid: Mild to moderate arteriosclerotic plaque is visualized of the bulb and proximal inter nal carotid artery with 50% or less narrowing.The waveforms are within normal limits. Left Carotid: Mild to moderate arteriosclerotic plaque is visualized at the bulb and proximal supply chain intern al carotid artery with 50% or less narrowing. The waveforms are within normal limits. Other: None. CONCLUSION: 1. Right Internal Carotid Artery: Mild to moderate atherosclerotic plaque at the bifurcation. No hem odynamically significant narrowing. 2. Left Internal Carotid Artery: Mild to moderate atherosclerotic plaque at the bifurcation. No hemo dynamically significant narrowing. Electronically signed by: Magen Thomas MD Board Certified Radiologist 10/25/2018 4:11 PM EST
[2018-10-26] MEDS: Senna/Docusate Sodium 8.6/50 MG Tablet PO SCH ×2 (08:53→23:16)
[2018-10-26] MEDS: Budesonide-Formoterol 160/4.5 MCG 6 GM Inhaler INH SCH ×2 (08:53→23:16)
[2018-10-26] MEDS: Gabapentin 300 MG Capsule PO SCH ×2 (08:53→23:15)
[2018-10-26] MEDS: amLODIPine 10 MG Tablet PO SCH (08:53)
[2018-10-26] MEDS ORDERED: Lidocaine PF 1% Inj 5 ML Syringe OTHER ONE (12:41)
--- NOTE | 2018-10-26 13:14 | GIPROC ---
[facility] [address] [facility], [address] EGD PROCEDURE REPORT EXAM DATE: 10/26/2018 PATIENT NAME: Leida Cordova MR #: [id number] BIRTHDATE: 1945 ATTENDING: Samir Kothari MD ORDER #: [id number] CUSTOMER PROJECT MANAGER: Daria Carrera and America Flaherty STATUS: inpatient INDICATIONS: The patient is a 73 yr old male here for an EGD due to chest pain and dysphagia PROCEDURE PERFORMED: EGD w/ balloon dilation of esophagus EGD w/ biopsy MEDICATIONS: Per Anesthesia and None. TOPICAL ANESTHETIC: none CONSENT: The patient understands the risks and benefits of the procedure and understands that these risks include, but are not limited to: sedation, allergic reaction, infection, perforation and/or bleeding. Alternative means of evaluation and treatment include, among others: physical exam, x-rays, and/or surgical intervention. The patient elects to proceed with this endoscopic procedure. medical equipment was checked for proper function. Hand hygiene and appropriate measures for infection prevention was taken. After the risks, benefits and alternatives of the procedure were thoroughly explained, Informed consent was verified, confirmed and timeout was successfully executed by the treatment team. The patient was anesthetized with topical anesthesia and the Pentax [id number] endoscope was introduced through the mouth and advanced to the second portion of the duodenum. Retroflexed views revealed a hiatal hernia and Retroflexed views revealed Possible Paraesophageal Hernia The gastroscope was then slowly withdrawn and removed. Old food residue in esophagus. ESOPHAGUS: There was a short benign appearing stricture in the distal esophagus. The stricture was easily traversable. Multiple biopsies were performed. Using a TTS-balloon the stricture was dilated up to 20mm. STOMACH: There was a moderate amount of residual food seen in the gastric fundus and cardia. Based on this, I suspect the patient has some level of gastroparesis. DUODENUM: The duodenal mucosa appeared normal in the entire duodenum. ADVERSE EVENTS: There were no complications. IMPRESSIONS: 1. Old food residue in esophagus 2. 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 Food residue in the gastric fundus and cardia 4. Normal duodenal mucosa in the entire duodenum 5. Retroflexed views revealed a hiatal hernia 6. Retroflexed views revealed Possible Paraesophageal Hernia RECOMMENDATIONS: 1. Await biopsy results. Biopsy results will not be ready for 7-10 days. If you don't hear from us in two weeks, call our office for biopsy results. 2. 1. Barium UGI 2. Reglan 3. Esophageal manometry to check for Achalasia PATIENT CONDITION: stable DISPOSITION: Inpatient REPEAT EXAM: Return as needed for EGD Samir Kothari MD eSigned: Samir Kothari MD 10/26/2018 1:13 PM cc: PATIENT NAME: Leida Cordova MR#: [id number]
--- NOTE | 2018-10-26 14:01 | P.PN ---
Subjective Interval history: Doing better. GI Eval in progress. On O2 2 L Physical Exam Vital signs: Vital Signs 10/25/18 15:59 10/25/18 16:45 10/25/18 20:00 Temperature 97.9 F Pulse Rate 66 71 80 Respiratory Rate 18 18 Blood Pressure 123/63 Pulse Oximetry 97 10/25/18 20:58 10/26/18 00:38 10/26/18 04:58 Temperature 97.9 F 98.0 F 98.2 F Pulse Rate 81 79 73 Respiratory Rate 18 18 18 Blood Pressure 109/57 L 112/56 L 121/67 Pulse Oximetry 95 97 96 10/26/18 08:08 10/26/18 08:46 10/26/18 13:11 Temperature 98.1 F 97.4 F L Pulse Rate 68 67 67 Respiratory Rate 22 18 18 Blood Pressure 147/78 H 112/58 L Pulse Oximetry 94 L 95 Intake & Output 10/25/18 10/26/18 10/26/18 18:59 06:59 18:59 Output Total 750 / 750 400 / 400 Balance -750 / -750 -400 / -400 Weight 62.2 kg Output: Urine 750 / 750 400 / 400 Other: Date of Last Bowel Movement 10/23/18 10/23/18 10/23/18 GENERAL: Elderly male alert SKIN: Warm and dry. HEAD: Atraumatic. Normocephalic. EYES: Pupils equal and round. No scleral icterus. No injection or drainage. ENT: No nasal bleeding or discharge. Mucous membranes pink and moist. NECK: Trachea midline. No JVD. CARDIOVASCULAR: Regular rate and rhythm. RESPIRATORY: No accessory muscle use. Bilateral wheeze and Breath sounds equal bilaterally. GASTROINTESTINAL: Abdomen soft, non-tender, nondistended. Hepatic and splenic margins not palpable. MUSCULOSKELETAL: Extremities without clubbing, cyanosis, or edema. No obvious deformities. NEUROLOGICAL: Awake and alert. No obvious cranial nerve deficits. Motor grossly within normal limits. PSYCHIATRIC: Appropriate mood and affect. Results - Labs CBC & Chem 7: 10/25/18 05:42 10/24/18 14:30 - Imaging Impressions Carotid Doppler Study 10/25/18 00:00 CONCLUSION: 1. Right Internal Carotid Artery: Mild to moderate atherosclerotic plaque at the bifurcation. No hemodynamically significant narrowing. 2. Left Internal Carotid Artery: Mild to moderate atherosclerotic plaque at the bifurcation. No hemodynamically significant narrowing. - Procedures Bronchoscopy Assessment and Plan - Assessment (1) COPD (chronic obstructive pulmonary disease) Code(s): J44.9 - Chronic obstructive pulmonary disease, unspecified Status: Acute (2) Pneumonia Code(s): J18.9 - Pneumonia, unspecified organism Status: Acute (3) Hemoptysis Code(s): R04.2 - Hemoptysis Status: Acute (4) Pleuritic chest pain Code(s): R07.81 - Pleurodynia Status: Acute - Plan 1 will get PET/CT scan as outpatient 2 continue antibiotic therapy as ordered 3. Continue DuoNeb nebs 4 times daily. 4. D/C prednisone 5. O2 2 L nasal cannula as needed 6. Symbicort 160 x 4.5 mcg 2 puffs twice daily
--- NOTE | 2018-10-26 14:18 | XR ---
EXAM DATE: 10/26/2018 2:13 PM EST AGE/SEX: 73 years / Male INDICATIONS: Pneumonia. CLINICAL DATA: This is the patient's subsequent encounter. Patient reports that signs and symptoms h ave been present for 1 week and indicates a pain score of 7/10. MEDICAL/SURGICAL HISTORY: Hypertension. Pacemaker. COMPARISON: [facility] – [place], CHEST 1V SINGLE AP, 10/17/2018. . FINDINGS: A single AP semierect portable view of the chest was obtained and again demonstrates the left subclav bert AV sequential transvenous pacer in place. Streaky bibasilar opacity remains without significant c hange. There are no new confluent infiltrates or effusions. The heart size is at the upper limits of normal with no perihilar edema. There is stable mild patchy opacity in the left upper lobe. The bony thorax remains intact. There is no effusion. CONCLUSION: 1. Streaky opacity in the lung bases most consistent with atelectasis 2. Patchy opacity remains in the left upper lobe without significant change. Electronically signed by: James Romero MD Board Certified Radiologist 10/26/2018 2:17 PM EST
--- NOTE | 2018-10-26 14:34 | P.PNIM ---
Subjective Interval history: Follow-up odynophagia. Tolerated dilatation patient has no new complaints discussed with GI Physical Exam Vital signs: Vital Signs 10/25/18 15:59 10/25/18 16:45 10/25/18 20:00 Temperature 97.9 F Pulse Rate 66 71 80 Respiratory Rate 18 18 Blood Pressure 123/63 Pulse Oximetry 97 10/25/18 20:58 10/26/18 00:38 10/26/18 04:58 Temperature 97.9 F 98.0 F 98.2 F Pulse Rate 81 79 73 Respiratory Rate 18 18 18 Blood Pressure 109/57 L 112/56 L 121/67 Pulse Oximetry 95 97 96 10/26/18 08:08 10/26/18 08:46 10/26/18 13:11 Temperature 98.1 F 97.4 F L Pulse Rate 68 67 67 Respiratory Rate 22 18 18 Blood Pressure 147/78 H 112/58 L Pulse Oximetry 94 L 95 Intake & Output 10/25/18 10/26/18 10/26/18 18:59 06:59 18:59 Output Total 750 / 750 400 / 400 Balance -750 / -750 -400 / -400 Weight 62.2 kg Output: Urine 750 / 750 400 / 400 Other: Date of Last Bowel Movement 10/23/18 10/23/18 10/23/18 Narrative: GENERAL: Well-developed and well-nourished with chronic hoarseness SKIN: Warm and dry. CARDIOVASCULAR: Regular rate and rhythm without murmurs, gallops, or rubs. RESPIRATORY: Breath sounds equal bilaterally. No accessory muscle use. GASTROINTESTINAL: Abdomen soft, non-tender, nondistended. MUSCULOSKELETAL: No cyanosis, or edema. BACK: Nontender without obvious deformity. No CVA tenderness. Alert and oriented with chronic left-sided weakness Results Labs CBC & Chem 7: 10/25/18 05:42 10/24/18 14:30 Imaging Imaging: Impressions Carotid Doppler Study 10/25/18 00:00 CONCLUSION: 1. Right Internal Carotid Artery: Mild to moderate atherosclerotic plaque at the bifurcation. No hemodynamically significant narrowing. 2. Left Internal Carotid Artery: Mild to moderate atherosclerotic plaque at the bifurcation. No hemodynamically significant narrowing. Chest X-Ray 10/26/18 00:00 CONCLUSION: 1. Streaky opacity in the lung bases most consistent with atelectasis 2. Patchy opacity remains in the left upper lobe without significant change. Procedures Procedures: EGD and bronchoscopy Assessment and Plan Plan 73-year-old man with Intermediate probability Pulmonary embolism The patient had a positive d-dimer and V/Q scan was intermediate probability for pulmonary embolism, although no ventilation/perfusion mismatches were noted. Unable to go for CTA s/t renal disease. Doppler lower extremity negative -This is unlikely pulmonary embolism -In the face of hemoptysis, heparin drip was discontinued October 19, 2018 -Maintain oxygen saturation above 92% -Appreciate input from pulmonary medicine, hematology History of recent CVA -Continue with aspirin, oral anticoagulation contraindicated due to hemoptysis and prior history of GI bleed. -PT to treat and eval Suspected endobronchial lesion right lower lobe per chest CT Patchy consolidative change in the left upper lobe Spiculated density in left lower lobe -Pulmonary medicine input appreciated, and status post bronchoscopy October cytology negative -Bronchoscopy culture with Proteus switched to Levaquin. Discontinue prednisone -Will need repeat CT chest in 2-4 weeks f/u Pleural-parenchymal density in the right lower lobe measures 4.3 x 3.0 cm.3. Spiculated density in the left lower lobe measures 15 x 11 mm.4. -Appreciate input from oncology Cough/? COPD exacerbation-improving The patient has a cough with mucus production. Also has a 50-year smoking history. -Maintain oxygen saturation above 92% -Smoking cessation instruction. -s/p IV doxycycline. -Discontinue prednisone 20 mg daily. Continue DuoNeb as needed -incentive spirometry. Odynophagia-improving -Unremarkable upper GI series. EGD with the following result: 1. Old food residue in esophagus 2. 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 Food residue in the gastric fundus and cardia 4. Normal duodenal mucosa in the entire duodenum 5. Retroflexed views revealed a hiatal hernia 6. Retroflexed views revealed Possible Paraesophageal Hernia RECOMMENDATIONS: 1. Await biopsy results. Biopsy results will not be ready for 7-10 days. If you don't hear from us in two weeks, call our office for biopsy results. 2. 1. Barium UGI 2. Reglan 3. Esophageal manometry to check for Achalasia Chest pain-resolved Likely s/t above. Reproducible on exam. -telemetry. -pain control as needed. Hypertensive urgency/chronic CHF -Continue labetalol, increase amlodipine for better control and adjust as needed. -clonidine as needed. Moderate to severe caloric nutritional deficiency Consider dietitian consult Ensure to current diet Acute on chronic renal disease stage 4 -now back to near baseline -Renal ultrasound without any evidence of hydronephrosis -avoid nephrotoxins and monitor BUN and creatinine. -Nephrology consultation PRN PPx: B-SCDs Code Status: Full Rehab when cleared by GI
--- NOTE | 2018-10-26 15:20 | P.PNONC ---
Subjective Interval history: Patient lying in bed, no acute distress. He states he is very hungry and wants to eat. His throat pain is relieved at this time. Discussed with RN, GI is resuming his diet and she will obtain a tray for the patient. Objective Vital Signs/Intake & Output: Vital Signs 10/25/18 15:59 10/25/18 16:45 10/25/18 20:00 Temperature 97.9 F Pulse Rate 66 71 80 Respiratory Rate 18 18 Blood Pressure 123/63 Pulse Oximetry 97 10/25/18 20:58 10/26/18 00:38 10/26/18 04:58 Temperature 97.9 F 98.0 F 98.2 F Pulse Rate 81 79 73 Respiratory Rate 18 18 18 Blood Pressure 109/57 L 112/56 L 121/67 Pulse Oximetry 95 97 96 10/26/18 08:08 10/26/18 08:46 10/26/18 13:11 Temperature 98.1 F 97.4 F L Pulse Rate 68 67 67 Respiratory Rate 22 18 18 Blood Pressure 147/78 H 112/58 L Pulse Oximetry 94 L 95 Intake & Output 10/25/18 10/26/18 10/26/18 18:59 06:59 18:59 Intake Total 100 / 100 Output Total 750 / 750 400 / 400 Balance -750 / -750 -300 / -300 Weight 62.2 kg Intake: Anesthesia Amount 100 / 100 Output: Urine 750 / 750 400 / 400 Other: Date of Last Bowel Movement 10/23/18 10/23/18 10/23/18 Result Diagrams: 10/25/18 05:42 10/24/18 14:30 Culture Results: Microbiology 10/21/18 09:02 Acid Fast Bacilli Smear - Final Bronchial Washings - Left Upper Lobe No acid fast bacilli seen 10/21/18 09:02 Acid Fast Bacilli Smear - Final Bronchial Washings - Bronchial No acid fast bacilli seen 10/21/18 09:02 Gram Stain - Final Bronchial - Left Upper Lobe Bronchial Culture - Final Proteus mirabilis 10/21/18 09:02 Gram Stain - Final Bronchial - Right Lower Lobe Bronchial Culture - Final Proteus mirabilis Imaging Studies: Impressions Carotid Doppler Study 10/25/18 00:00 CONCLUSION: 1. Right Internal Carotid Artery: Mild to moderate atherosclerotic plaque at the bifurcation. No hemodynamically significant narrowing. 2. Left Internal Carotid Artery: Mild to moderate atherosclerotic plaque at the bifurcation. No hemodynamically significant narrowing. Chest X-Ray 10/26/18 00:00 CONCLUSION: 1. Streaky opacity in the lung bases most consistent with atelectasis 2. Patchy opacity remains in the left upper lobe without significant change. Medications: Active Medications Generic Name Dose Route Start Last Admin Trade Name Freq PRN Reason Stop Dose Admin Hydrocodone Bitart/Acetaminophen 1 tab 10/17/18 16:01 10/17/18 19:21 Harvey 5/325 PO 1 tab Q6H PRN Administration pain 3-10 Albuterol 1 ampul 10/18/18 13:00 10/26/18 08:45 Duoneb Neb (Netta) NEB 1 ampul Q6HR NEB NETTA Administration Amlodipine Besylate 10 mg 10/26/18 09:00 10/26/18 08:53 Norvasc PO 10 mg DAILY NETTA Administration Aspirin 81 mg 10/18/18 09:00 10/26/18 08:53 Ecotrin PO 81 mg DAILY NETTA Administration Budesonide/Formoterol Fumarate 2 puff 10/18/18 13:00 10/26/18 08:53 Symbicort 160/4.5 Mcg Inh INH 2 puff BID NETTA Administration Clonidine HCl 0.1 mg 10/17/18 17:35 10/17/18 18:43 Catapres PO 0.1 mg Q6H PRN Administration SBP> OR = 180, DBP> OR = 100 Gabapentin 300 mg 10/25/18 09:00 10/26/18 08:53 Neurontin PO 300 mg BID NETTA Administration Heparin Sodium (Porcine) 5,000 units 10/20/18 21:00 10/22/18 00:05 Heparin Inj SQ Not Given Q12HR NETTA Labetalol HCl 300 mg 10/17/18 21:00 10/26/18 08:53 Trandate PO 300 mg BID NETTA Administration Senna/Docusate Sodium 1 tab 10/17/18 21:00 10/26/18 08:53 Faviola-Colace PO 1 tab BID NETTA Administration Sodium Chloride 2 ml 10/17/18 21:00 10/26/18 08:54 Ns Flush IV.FLUSH 2 ml BID NETTA Administration Objective Remarks: GENERAL: Thin, well-developed patient, no acute distress. SKIN: Warm and dry. HEAD: Normocephalic. EYES: No scleral icterus. No injection or drainage. NECK: Supple, trachea midline. CARDIOVASCULAR: + S1/S2, without murmurs. RESPIRATORY: Posterior breath sounds clear, equal bilaterally. Nonlabored at rest. GASTROINTESTINAL: Abdomen soft, non-tender, nondistended. EXTREMITIES: No cyanosis, or edema. MUSCULOSKELETAL: Adequate muscle tone. NEUROLOGICAL: No obvious focal deficit. Awake, alert, and oriented x3. PSYCHIATRIC: Appropriate mood and affect; insight and judgment normal. Assessment/Plan - Plan Mr. Jimenez is a pleasant 73-year-old male patient who presented to the hospital after a fall. 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 Patient had an indeterminate VQ scan and hematology was consulted. Plan: 1. Spiculated density in the left lower lobe measures 15 x 11 mm. Status post bronchoscopy 10/21/2018. No endobronchial lesions noted, mucous plugs removed. Will repeat CT as an outpatient. 2. Throat pain, resolved. Carotid ultrasound showed bilateral mild to moderate atherosclerosis. Status post EGD yesterday. Status post swallow study. 3. Continue DVT prophylaxis with subcu heparin. Noted to be currently on hold related to procedures. 4. Continue supportive care. - Attending Statement The exam, history, and the medical decision-making described in the above note were completed with the assistance of the mid-level provider. I reviewed and agree with the findings presented. I attest that I had a [id number] encounter with the patient on the same day, and personally performed and documented my assessment and findings in the medical record. Late entry. I saw the patient the morning. He was complaining of dysphagia. He still has mild shortness of breath and cough. He is going to have upper endoscopy. Continue supportive care. He will need outpatient follow-up CT scan to monitor the lung lesions.
[2018-10-26] MEDS ORDERED: Metoclopramide 10 MG Tablet PO SCH (17:00)
[2018-10-27] MEDS: Senna/Docusate Sodium 8.6/50 MG Tablet PO SCH ×2 (09:00→20:56)
[2018-10-27] MEDS: amLODIPine 10 MG Tablet PO SCH (09:00)
[2018-10-27] MEDS: Gabapentin 300 MG Capsule PO SCH ×2 (09:00→20:56)
[2018-10-27] MEDS: Budesonide-Formoterol 160/4.5 MCG 6 GM Inhaler INH SCH ×2 (09:01→21:00)
--- NOTE | 2018-10-27 11:22 | FL ---
EXAM DATE: 10/27/2018 10:58 AM EST AGE/SEX: 73 years / Male INDICATIONS: Achalasia. CLINICAL DATA: This is the patient's subsequent encounter. Patient reports that signs and symptoms h ave been present for 1 day and indicates a pain score of 0/10. MEDICAL/SURGICAL HISTORY: . Hypertension. Renal failure, chronic. Stroke. Chronic systolic hear t failure Pacemaker. [place]PAR[place] [facility] [place] WITH [employer], 10/24/2018. . FLUORO TIME: 0.9 minutes. IMAGE COUNT: 18 RADIATION DOSE: 184.14 DAP FINDINGS: The esophagus has very poor peristalsis characteristic of an esophageal motility disorder. There is a lso some mild dilatation and some mild narrowing at the GE junction. The kidneys are identified. Stom ach partially obscured by contrast from previous procedure. 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 Mild esophageal dilatation and mild stri cture at the GE junction. Electronically signed by: Jay Duval MD Board Certified Radiologist 10/27/2018 11:21 AM EST
[2018-10-27] MEDS ORDERED: levoFLOXacin 750 MG Tablet PO SCH (12:00)
--- NOTE | 2018-10-27 12:15 | P.PNIM ---
Subjective Interval history: Follow-up odynophagia. States his swallowing is about the same. Physical Exam Vital signs: Vital Signs 10/26/18 13:11 10/26/18 16:00 10/26/18 17:12 Temperature 97.4 F L 97.1 F L Pulse Rate 67 67 60 Respiratory Rate 18 18 18 Blood Pressure 112/58 L 104/55 L Pulse Oximetry 95 96 10/26/18 20:58 10/26/18 20:59 10/27/18 00:57 Temperature 97.7 F 98.0 F Pulse Rate 80 72 76 Respiratory Rate 15 18 18 Blood Pressure 108/55 L 110/58 L Pulse Oximetry 98 98 10/27/18 03:42 10/27/18 05:08 10/27/18 08:23 Temperature 97.9 F 97.6 F Pulse Rate 88 65 64 Respiratory Rate 22 20 18 Blood Pressure 120/62 136/69 Pulse Oximetry 96 95 10/27/18 08:43 Temperature Pulse Rate 63 Respiratory Rate 18 Blood Pressure Pulse Oximetry Intake & Output 10/26/18 10/27/18 10/27/18 18:59 06:59 18:59 Intake Total 100 / 100 Output Total 400 / 400 200 / 200 Balance -300 / -300 -200 / -200 Weight 61.2 kg Intake: Anesthesia Amount 100 / 100 Output: Urine 400 / 400 200 / 200 Other: Date of Last Bowel Movement 10/23/18 Narrative: GENERAL: Well-developed and well-nourished with chronic hoarseness CARDIOVASCULAR: Regular rate and rhythm without murmurs, gallops, or rubs. RESPIRATORY: Breath sounds equal bilaterally. No accessory muscle use. GASTROINTESTINAL: Abdomen soft, non-tender, nondistended. MUSCULOSKELETAL: No cyanosis, or edema. BACK: Nontender without obvious deformity. No CVA tenderness. Alert and oriented with chronic left-sided weakness Results Labs CBC & Chem 7: 10/25/18 05:42 10/24/18 14:30 Imaging Imaging: ITS Impressions Venous Doppler Study 10/17/18 00:00 CONCLUSION: 1. The study is negative for bilateral lower extremity deep venous thrombosis. Pulmonary Perfusion Imaging 10/17/18 13:32 CONCLUSION: 1. There are no ventilation/perfusion mismatches seen. However, there is segmental matched ventilatory and perfusion defects involving the posterior inferior lungs bilaterally. These matched defects, since they involve more than one segment and are seen more and more than one view, May this scan of intermediate probability for pulmonary embolism. Abdomen/Pelvis CT 10/18/18 00:00 CONCLUSION: 1. Constipation. 2. Right renal low-density. 3. Bilateral punctate renal calcifications likely vascular versus nonobstructing calculi. 4. Retrocrural adenopathy measures 15 mm, nonspecific. Chest CT 10/18/18 00:00 CONCLUSION: 1. Patchy consolidative changes in the left upper lobe. 2. Pleural-parenchymal density in the right lower lobe measures 4.3 x 3.0 cm. 3. Spiculated density in the left lower lobe measures 15 x 11 mm. 4. Suspected endobronchial lesion right lower lobe. Bronchoscopy may be warranted. 5. PET/CT scan recommended for biopsy planning. Abdomen/Bladder Ultrasound 10/21/18 00:00 CONCLUSION: 1. The kidneys are small bilaterally, left greater than right with increased echogenicity of the renal parenchyma characteristic of medical renal disease. 2. No evidence of hydronephrosis. 3. 1.5 cm cyst lower pole right kidney. Carotid Doppler Study 10/25/18 00:00 CONCLUSION: 1. Right Internal Carotid Artery: Mild to moderate atherosclerotic plaque at the bifurcation. No hemodynamically significant narrowing. 2. Left Internal Carotid Artery: Mild to moderate atherosclerotic plaque at the bifurcation. No hemodynamically significant narrowing. Videofluoroscopic Swallow 10/25/18 08:00 CONCLUSION: Fluoroscopy services provided to the speech pathologist. Poorly controlled oral phase. No aspiration demonstrated. Chest X-Ray 10/26/18 00:00 CONCLUSION: 1. Streaky opacity in the lung bases most consistent with atelectasis 2. Patchy opacity remains in the left upper lobe without significant change. Procedures Procedures: EGD and bronchoscopy Assessment and Plan Plan 73-year-old man with Intermediate probability Pulmonary embolism The patient had a positive d-dimer and V/Q scan was intermediate probability for pulmonary embolism, although no ventilation/perfusion mismatches were noted. Unable to go for CTA s/t renal disease. Doppler lower extremity negative -This is unlikely pulmonary embolism -In the face of hemoptysis, heparin drip was discontinued October 19, 2018 -Maintain oxygen saturation above 92% -Appreciate input from pulmonary medicine, hematology History of recent CVA -Continue with aspirin, oral anticoagulation contraindicated due to hemoptysis and prior history of GI bleed. -PT to treat and eval Suspected endobronchial lesion right lower lobe per chest CT Patchy consolidative change in the left upper lobe Spiculated density in left lower lobe -Pulmonary medicine input appreciated, and status post bronchoscopy October cytology negative -Bronchoscopy culture with Proteus switched to Levaquin. Discontinue prednisone -Will need repeat CT chest in 2-4 weeks f/u Pleural-parenchymal density in the right lower lobe measures 4.3 x 3.0 cm.3. Spiculated density in the left lower lobe measures 15 x 11 mm.4. -Appreciate input from oncology Cough/? COPD exacerbation-improving The patient has a cough with mucus production. Also has a 50-year smoking history. -Maintain oxygen saturation above 92% -Smoking cessation instruction. -s/p IV doxycycline. -Discontinue prednisone 20 mg daily. Continue DuoNeb as needed -incentive spirometry. 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 EGD with the following result: 1. Old food residue in esophagus 2. 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 Food residue in the gastric fundus and cardia 4. Normal duodenal mucosa in the entire duodenum 5. Retroflexed views revealed a hiatal hernia 6. Retroflexed views revealed Possible Paraesophageal Hernia RECOMMENDATIONS: 1. Await biopsy results. Biopsy results will not be ready for 7-10 days. If you don't hear from us in two weeks, call our office for biopsy results. 2. 1. Barium UGI 2. Reglan 3. Esophageal manometry to check for Achalasia Will start PPI Chest pain-resolved Likely s/t above. Reproducible on exam. -telemetry. -pain control as needed. Hypertensive urgency/chronic CHF -Continue labetalol, increase amlodipine for better control and adjust as needed. -clonidine as needed. Moderate to severe caloric nutritional deficiency Consider dietitian consult Ensure to current diet Acute on chronic renal disease stage 4 -now back to near baseline -Renal ultrasound without any evidence of hydronephrosis -avoid nephrotoxins and monitor BUN and creatinine. -Nephrology consultation PRN PPx: B-SCDs Code Status: Full Rehab when cleared by GI
--- NOTE | 2018-10-27 13:43 | P.PNONC ---
Subjective Interval history: Patient lying in bed, reports that he is hungry. He was n.p.o. again this morning for GI series. He continues to have some throat discomfort. Discussed with Dr. Dimas, patient cleared to eat mechanical soft as per speech therapist recommendations. Discussed with RN, she has ordered patient a tray. Objective Vital Signs/Intake & Output: Vital Signs 10/26/18 16:00 10/26/18 17:12 10/26/18 20:58 Temperature 97.1 F L Pulse Rate 67 60 80 Respiratory Rate 18 18 15 Blood Pressure 104/55 L Pulse Oximetry 96 10/26/18 20:59 10/27/18 00:57 10/27/18 03:42 Temperature 97.7 F 98.0 F Pulse Rate 72 76 88 Respiratory Rate 18 18 22 Blood Pressure 108/55 L 110/58 L Pulse Oximetry 98 98 10/27/18 05:08 10/27/18 08:23 10/27/18 08:43 Temperature 97.9 F 97.6 F Pulse Rate 65 64 63 Respiratory Rate 20 18 18 Blood Pressure 120/62 136/69 Pulse Oximetry 96 95 10/27/18 11:45 Temperature Pulse Rate 60 Respiratory Rate 20 Blood Pressure 130/67 Pulse Oximetry 96 Intake & Output 10/26/18 10/27/18 10/27/18 18:59 06:59 18:59 Intake Total 100 / 100 Output Total 400 / 400 200 / 200 Balance -300 / -300 -200 / -200 Weight 61.2 kg Intake: Anesthesia Amount 100 / 100 Output: Urine 400 / 400 200 / 200 Other: Date of Last Bowel Movement 10/23/18 Result Diagrams: 10/25/18 05:42 10/24/18 14:30 Laboratory Results: Laboratory Results - last 24 hr 10/27/18 07:57 TSH 3.810 H Culture Results: Microbiology 10/21/18 09:02 Acid Fast Bacilli Smear - Final Bronchial Washings - Left Upper Lobe No acid fast bacilli seen 10/21/18 09:02 Acid Fast Bacilli Smear - Final Bronchial Washings - Bronchial No acid fast bacilli seen 10/21/18 09:02 Gram Stain - Final Bronchial - Left Upper Lobe Bronchial Culture - Final Proteus mirabilis 10/21/18 09:02 Gram Stain - Final Bronchial - Right Lower Lobe Bronchial Culture - Final Proteus mirabilis Imaging Studies: Impressions Chest X-Ray 10/26/18 00:00 CONCLUSION: 1. Streaky opacity in the lung bases most consistent with atelectasis 2. Patchy opacity remains in the left upper lobe without significant change. Medications: Active Medications Generic Name Dose Route Start Last Admin Trade Name Freq PRN Reason Stop Dose Admin Hydrocodone Bitart/Acetaminophen 1 tab 10/17/18 16:01 10/17/18 19:21 [place] 5/325 PO 1 tab Q6H PRN Administration pain 3-10 Albuterol 1 ampul 10/18/18 13:00 10/27/18 08:41 Duoneb Neb (Netta) NEB 1 ampul Q6HR NEB NETTA Administration Amlodipine Besylate 10 mg 10/26/18 09:00 10/27/18 09:00 Norvasc PO 10 mg DAILY NETTA Administration Aspirin 81 mg 10/18/18 09:00 10/27/18 09:01 Ecotrin PO 81 mg DAILY NETTA Administration Budesonide/Formoterol Fumarate 2 puff 10/18/18 13:00 10/27/18 09:01 Symbicort 160/4.5 Mcg Inh INH 2 puff BID NETTA Administration Clonidine HCl 0.1 mg 10/17/18 17:35 10/17/18 18:43 Catapres PO 0.1 mg Q6H PRN Administration SBP> OR = 180, DBP> OR = 100 Gabapentin 300 mg 10/25/18 09:00 10/27/18 09:00 Neurontin PO 300 mg BID NETTA Administration Heparin Sodium (Porcine) 5,000 units 10/20/18 21:00 10/22/18 00:05 Heparin Inj SQ Not Given Q12HR NETTA Labetalol HCl 300 mg 10/17/18 21:00 10/27/18 09:01 Trandate PO 300 mg BID NETTA Administration Levofloxacin 750 mg 10/27/18 12:00 10/27/18 12:53 Levaquin PO 10/29/18 01:00 750 mg Q48H NETTA Administration Metoclopramide HCl 5 mg 10/26/18 16:00 10/27/18 13:15 Reglan Inj IV.PUSH 5 mg Q8HR NETTA Administration Protocol Senna/Docusate Sodium 1 tab 10/17/18 21:00 10/27/18 09:00 Faviola-Colace PO Not Given BID NETTA Sodium Chloride 2 ml 02/11/19 21:00 10/27/18 09:01 Ns Flush IV.FLUSH 2 ml BID NETTA Administration Objective Remarks: GENERAL: Thin, well-developed patient, no acute distress. SKIN: Warm and dry. HEAD: Normocephalic. EYES: No scleral icterus. No injection or drainage. NECK: Supple, trachea midline. CARDIOVASCULAR: + S1/S2, without murmurs. RESPIRATORY: Anterior breath sounds with expiratory rhonchi throughout. Nonlabored at rest. GASTROINTESTINAL: Abdomen soft, non-tender, nondistended. EXTREMITIES: No cyanosis, or edema. MUSCULOSKELETAL: Adequate muscle tone. NEUROLOGICAL: No obvious focal deficit. Awake, alert, and oriented x3. PSYCHIATRIC: Appropriate mood and affect; insight and judgment normal. Assessment/Plan - Plan Mr. Jimenez is a pleasant 73-year-old male patient who presented to the hospital after a fall. 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 Patient had an indeterminate VQ scan and hematology was consulted. Plan: 1. Spiculated density in the left lower lobe measures 15 x 11 mm. Status post bronchoscopy 10/21/2018. No endobronchial lesions noted, mucous plugs removed. Will repeat CT as an outpatient. 2. Throat pain, continue. Carotid ultrasound showed bilateral mild to moderate atherosclerosis. Status post EGD, biopsies pending. Status post swallow study, cleared for mechanical soft diet. 3. Continue DVT prophylaxis with subcu heparin. Noted to be currently on hold related to procedures. 4. Patient cleared from an oncology standpoint for discharge home. He should follow-up with oncology for repeat CT scan to follow-up on the spiculated density in the left lower lobe. Patient's information sent to new patient referral. - Attending Statement The exam, history, and the medical decision-making described in the above note were completed with the assistance of the mid-level provider. I reviewed and agree with the findings presented. I attest that I had a [id number] encounter with the patient on the same day, and personally performed and documented my assessment and findings in the medical record. Patient still complaining of dysphagia. EGD showed stricture in the distal esophagus. Biopsies pending. There were also food residue noted in the esophagus and stomach. GI is following. His shortness of breath and cough is slightly better. He is going to need repeat CT of the chest in a few weeks.
--- NOTE | 2018-10-27 19:30 | P.PN ---
Subjective Interval history: Has some hoarseness. Off O2 sat 96. Complains of cough and wheezing. Will be discharged for outpatient follow-up and a repeat CT scan in [address]-guided needle biopsy Physical Exam Vital signs: Vital Signs 10/26/18 20:58 10/26/18 20:59 10/27/18 00:57 Temperature 97.7 F 98.0 F Pulse Rate 80 72 76 Respiratory Rate 15 18 18 Blood Pressure 108/55 L 110/58 L Pulse Oximetry 98 98 10/27/18 03:42 10/27/18 05:08 10/27/18 08:23 Temperature 97.9 F 97.6 F Pulse Rate 88 65 64 Respiratory Rate 22 20 18 Blood Pressure 120/62 136/69 Pulse Oximetry 96 95 10/27/18 08:43 10/27/18 11:45 10/27/18 16:00 Temperature 97.7 F Pulse Rate 63 60 75 Respiratory Rate 18 20 20 Blood Pressure 130/67 100/58 L Pulse Oximetry 96 95 Intake & Output 10/27/18 10/27/18 10/28/18 06:59 18:59 06:59 Output Total 200 / 200 Balance -200 / -200 Weight 61.2 kg Output: Urine 200 / 200 GENERAL: Thinly built middle-aged -[place] male with a hoarse voice SKIN: Warm and dry. HEAD: Atraumatic. Normocephalic. EYES: Pupils equal and round. No scleral icterus. No injection or drainage. ENT: No nasal bleeding or discharge. Mucous membranes pink and moist. NECK: Trachea midline. No JVD. CARDIOVASCULAR: Regular rate and rhythm. RESPIRATORY: No accessory muscle use. Bilateral expiratory wheezes with distant breath sounds GASTROINTESTINAL: Abdomen soft, mild tenderness, nondistended. Hepatic and splenic margins not palpable. MUSCULOSKELETAL: Extremities without clubbing, cyanosis, or edema. No obvious deformities. NEUROLOGICAL: Awake and alert. No obvious cranial nerve deficits. Motor grossly within normal limits. PSYCHIATRIC: Appropriate mood and affect. Results - Labs CBC & Chem 7: 10/25/18 05:42 10/24/18 14:30 Laboratory Results - last 24 hr 10/27/18 07:57 TSH 3.810 H - Procedures EGD and bronchoscopy Assessment and Plan - Assessment (1) COPD (chronic obstructive pulmonary disease) Code(s): J44.9 - Chronic obstructive pulmonary disease, unspecified Status: Acute (2) Pneumonia Code(s): J18.9 - Pneumonia, unspecified organism Status: Acute (3) Hemoptysis Code(s): R04.2 - Hemoptysis Status: Acute (4) Pleuritic chest pain Code(s): R07.81 - Pleurodynia Status: Acute - Plan 1 will get PET/CT scan as outpatient 2 continue antibiotic therapy as ordered 3. Continue DuoNeb nebs 4 times daily. 4. Home over the weekend 5. DC O2 2 L nasal cannula 6. Symbicort 160 x 4.5 mcg 2 puffs twice daily 7. Follow-up as outpatient in 2 weeks
--- NOTE | 2018-10-27 21:04 | P.PNGI ---
Subjective Interval history: Patient awake and alert Semirecumbent in bed Denies difficulty swallowing Points to left side of throat and reports mild discomfort with palpation Physical Exam Vital signs: Vital Signs 10/27/18 00:57 10/27/18 03:42 10/27/18 05:08 Temperature 98.0 F 97.9 F Pulse Rate 76 88 65 Respiratory Rate 18 22 20 Blood Pressure 110/58 L 120/62 Pulse Oximetry 98 96 10/27/18 08:23 10/27/18 08:43 10/27/18 11:45 Temperature 97.6 F Pulse Rate 64 63 60 Respiratory Rate 18 18 20 Blood Pressure 136/69 130/67 Pulse Oximetry 95 96 10/27/18 16:00 Temperature 97.7 F Pulse Rate 75 Respiratory Rate 20 Blood Pressure 100/58 L Pulse Oximetry 95 Intake & Output 10/27/18 10/27/18 10/28/18 06:59 18:59 06:59 Output Total 200 / 200 Balance -200 / -200 Weight 61.2 kg Output: Urine 200 / 200 - Constitutional chronically ill appearing, cooperative - Routine HEENT Exam Head: Present: normocephalic ENT: Present: mucous membranes moist, oropharynx clear - Routine Neck Exam Present: supple, trachea midline. Absent: swelling - Routine Respiratory Exam Present: CTA bilaterally - Routine Abdominal Exam Present: soft, normoactive bowel sounds. Absent: tenderness, distended - Routine Skin Exam Present: dry, warm - Routine Neurological Exam Present: alert, oriented X3 Results - Labs CBC & Chem 7: 10/25/18 05:42 10/24/18 14:30 Laboratory Results - last 24 hr 10/27/18 07:57 TSH 3.810 H - Procedures EGD and bronchoscopy Assessment and Plan (1) Dysphagia Status: Acute Code(s): R13.10 - Dysphagia, unspecified (2) Odynophagia Status: Acute Code(s): R13.10 - Dysphagia, unspecified - Plan Patient is a pleasant 73-year-old male with past medical history significant for chronic renal failure, heart failure, hypertension and CVA. Surgical history significant for defibrillator pacemaker placement and prostatectomy. Patient presented to [facility] emergency room with report of generalized weakness over the past week. Patient reports that his voice has become hoarse and raspy over the last 2 weeks. He endorses a cough with no fever he also endorses epigastric discomfort with a 50 pound weight loss over the last 3 months. Patient endorses dysphagia with pills and some solid foods accompanied by odynophagia. Patient is post CVA with left-sided weakness. Upon consultation, patient points to the left side of his throat that states he feels a dull ache with swallowing. Patient denies choking while drinking or eating. Denies any past history of EGD. Patient presently on aspirin, heparin stopped due to an episode of hemoptysis. Patient endorses that he smokes 1 pack/day cigarettes and drinks an occasional beer. Patient denies any known family history for gastrointestinal disorders. Patient denies diarrhea or constipation, denies hematochezia or melena stools. States no history of colonoscopy in the past. Our service has been consulted to evaluate patient for EGD due to her dysphagia and odynophagia. 10/24/2018 upper GI series-- Swallowing is within normal limits. Normal caliber esophagus. The gastroesophageal junction is within normal limits. No reflux was demonstrated during the course of this exam. Grossly normal stomach. 10/25/2018 Dysphagia with odynophagia Videofluoroscopic swallow: Fluoroscopy services provided to the speech pathologist. Poorly controlled oral phase. No aspiration demonstrated. Patient in no acute distress WBC 7.0 hemoglobin 9.5 hematocrit 29.3 10/27/2018 Dysphagia with odynophagia Post EGD with dilatation-- short stricture in the distal esophagus; multiple biopsies were performed; Using a TTS-balloon the stricture was dilated up to 20mm 3. Food residue in the gastric fundus and cardia 4. Normal duodenal mucosa in the entire duodenum 5. Retroflexed views revealed a hiatal hernia 6. Retroflexed views revealed Possible Paraesophageal Hernia Plan Diet as per dietary recommendation speech pathology Esophageal manometry for achalasia as outpatient Reglan EGD as needed Supportive care GI will sign off at this time please notify for any further assistance This patient has been seen by myself and Dr. Kothari and this note is written on his behalf - Attending Attestation Dr. Kothari
--- NOTE | 2018-10-28 07:35 | P.PNONC ---
Subjective Interval history: Patient still has mild sore throat. Overall he is feeling better. His shortness of breath and cough has improved. Objective Vital Signs/Intake & Output: Vital Signs 10/27/18 08:23 10/27/18 08:43 10/27/18 11:45 Temperature 97.6 F Pulse Rate 64 63 60 Respiratory Rate 18 18 20 Blood Pressure 136/69 130/67 Pulse Oximetry 95 96 10/27/18 16:00 10/27/18 20:00 10/27/18 21:00 Temperature 97.7 F 98.4 F Pulse Rate 75 83 82 Respiratory Rate 20 20 15 Blood Pressure 100/58 L 105/58 L Pulse Oximetry 95 96 10/28/18 00:00 10/28/18 03:00 10/28/18 04:00 Temperature 98.3 F 97.9 F Pulse Rate 84 88 87 Respiratory Rate 20 20 20 Blood Pressure 113/61 110/57 L Pulse Oximetry 95 93 L Intake & Output 10/27/18 10/28/18 10/28/18 18:59 06:59 18:59 Output Total 325 / 325 Balance -325 / -325 Weight 62.4 kg Output: Urine 325 / 325 Other: Date of Last Bowel Movement 10/26/18 Result Diagrams: 10/25/18 05:42 10/24/18 14:30 Laboratory Results: Laboratory Results - last 24 hr 10/27/18 07:57 TSH 3.810 H Medications: Active Medications Generic Name Dose Route Start Last Admin Trade Name Freq PRN Reason Stop Dose Admin Hydrocodone Bitart/Acetaminophen 1 tab 10/17/18 16:01 10/17/18 19:21 [place] 5/325 PO 1 tab Q6H PRN Administration pain 3-10 Albuterol 1 ampul 10/18/18 13:00 10/28/18 04:22 Duoneb Neb (Netta) NEB 1 ampul Q6HR NEB NETTA Administration Amlodipine Besylate 10 mg 10/26/18 09:00 10/27/18 09:00 Norvasc PO 10 mg DAILY NETTA Administration Aspirin 81 mg 10/18/18 09:00 10/27/18 09:01 Ecotrin PO 81 mg DAILY NETTA Administration Budesonide/Formoterol Fumarate 2 puff 10/18/18 13:00 10/27/18 21:00 Symbicort 160/4.5 Mcg Inh INH 2 puff BID NETTA Administration Clonidine HCl 0.1 mg 10/17/18 17:35 10/17/18 18:43 Catapres PO 0.1 mg Q6H PRN Administration SBP> OR = 180, DBP> OR = 100 Gabapentin 300 mg 10/25/18 09:00 10/27/18 20:56 Neurontin PO 300 mg BID NETTA Administration Heparin Sodium (Porcine) 5,000 units 10/20/18 21:00 10/22/18 00:05 Heparin Inj SQ Not Given Q12HR NETTA Labetalol HCl 300 mg 10/17/18 21:00 10/27/18 20:58 Trandate PO Not Given BID NETTA Levofloxacin 750 mg 10/27/18 12:00 10/27/18 12:53 Levaquin PO 10/29/18 01:00 750 mg Q48H NETTA Administration Metoclopramide HCl 5 mg 10/26/18 16:00 10/28/18 05:45 Reglan Inj IV.PUSH 5 mg Q8HR NETTA Administration Protocol Senna/Docusate Sodium 1 tab 10/17/18 21:00 10/27/18 20:56 Faviola-Colace PO 1 tab BID NETTA Administration Sodium Chloride 2 ml 10/17/18 21:00 10/27/18 20:56 Ns Flush IV.FLUSH 2 ml BID NETTA Administration Sodium Chloride 2 ml 10/17/18 15:58 10/28/18 05:45 Ns Flush IV.FLUSH 2 ml PRN PRN Administration FLUSH AFTER USING IV ACCESS Objective Remarks: GENERAL: Well-nourished, well-developed patient. SKIN: Warm and dry. HEAD: Normocephalic. EYES: No scleral icterus. No injection or drainage. NECK: Supple, trachea midline. No JVD or lymphadenopathy. Positive dysphonia LYMPHATIC: No adenopathy. CARDIOVASCULAR: Regular rate and rhythm without murmurs. RESPIRATORY: Breath sounds equal bilaterally. No accessory muscle use. GASTROINTESTINAL: Abdomen soft, non-tender, nondistended. EXTREMITIES: No cyanosis, or edema. MUSCULOSKELETAL: Adequate muscle tone. NEUROLOGICAL: No obvious focal deficit. Awake, alert, and oriented x3. PSYCHIATRIC: Appropriate mood and affect; insight and judgment normal. Assessment/Plan - Plan Mr. Jimenez is a pleasant 73-year-old male patient who presented to the hospital after a fall. 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 Patient had an indeterminate VQ scan and hematology was consulted. Plan: 1. Spiculated density in the left lower lobe measures 15 x 11 mm. Status post bronchoscopy 10/21/2018. No endobronchial lesions noted, mucous plugs removed. The left lung spiculated lesion will need to be monitored closely. He will need repeat CT as outpatient in a few weeks. He can follow-up with pulmonology or oncology after discharge. 2. Throat pain, continue. Carotid ultrasound showed bilateral mild to moderate atherosclerosis. Status post EGD, biopsies pending. Status post swallow study, cleared for mechanical soft diet. 3. Continue DVT prophylaxis with subcu heparin. 4. Patient cleared from an oncology standpoint for discharge home. He should follow-up with oncology for repeat CT scan to follow-up on the spiculated density in the left lower lobe. Patient's information sent to new patient referral.
[2018-10-28 08:07] LABS: Baso % (Auto) 0.8 % (0.0-2.0); Eos # (Auto) 0.1 th/mm3 (0.0-0.4); Eos % (Auto) 1.3 % (0.0-4.0); Hematocrit 27.9 % (39.0-51.0); Hemoglobin 9.1 gm/dL (13.0-17.0); Lymph # (Auto) 0.8 th/mm3 (1.0-4.8); Lymph % (Auto) 12.3 % (9.0-44.0); Mean Corpuscular HGB Conc 32.7 % (32.0-36.0); Mean Corpuscular Hemoglobin 28.2 pg (27.0-34.0); Mean Platelet Volume 7.3 fL (7.0-11.0); Mono # (Auto) 0.8 th/mm3 (0.0-0.9); Mono % (Auto) 13.2 % (0.0-8.0); Neut # (Auto) 4.4 th/mm3 (1.8-7.7); Neut % (Auto) 72.4 % (16.0-70.0); Platelet Count 205 th/mm3 (150-450); Red Blood Count 3.24 mil/mm3 (4.50-5.90); Red Cell Distribution Width 17.2 % (11.6-17.2); White Blood Count 6.1 th/mm3 (4.0-11.0)
[2018-10-28 08:37] LABS: Albumin 2.4 g/dL (3.4-5.0); Calcium 7.4 mg/dL (8.5-10.1); Carbon Dioxide 28.6 meq/L (21.0-32.0); Potassium 4.3 meq/L (3.5-5.1)
[2018-10-28 08:47] LABS: Free T4 (Free Thyroxine) 0.94 ng/dL (0.76-1.46); Total Protein 5.7 g/dL (6.4-8.2); Triiodothyronine (T3) Free 1.79 pg/mL (2.18-3.98)
[2018-10-28] MEDS: Gabapentin 300 MG Capsule PO SCH ×2 (09:52→21:03)
[2018-10-28] MEDS: Budesonide-Formoterol 160/4.5 MCG 6 GM Inhaler INH SCH ×2 (09:53→21:06)
[2018-10-28] MEDS: amLODIPine 10 MG Tablet PO SCH (09:53)
[2018-10-28] MEDS: Senna/Docusate Sodium 8.6/50 MG Tablet PO SCH ×2 (09:53→21:03)
--- NOTE | 2018-10-28 11:50 | P.PNIM ---
Subjective Interval history: Follow-up odynophagia. Tolerating diet aware he needs outpatient EGD with manometry per GI recommendations. Physical Exam Vital signs: Vital Signs 10/27/18 16:00 10/27/18 20:00 10/27/18 21:00 Temperature 97.7 F 98.4 F Pulse Rate 75 83 82 Respiratory Rate 20 20 15 Blood Pressure 100/58 L 105/58 L Pulse Oximetry 95 96 10/28/18 00:00 10/28/18 03:00 10/28/18 04:00 Temperature 98.3 F 97.9 F Pulse Rate 84 88 87 Respiratory Rate 20 20 20 Blood Pressure 113/61 110/57 L Pulse Oximetry 95 93 L 10/28/18 08:00 10/28/18 10:19 Temperature 99.2 F Pulse Rate 85 74 Respiratory Rate 16 16 Blood Pressure 109/58 L Pulse Oximetry 93 L Intake & Output 10/27/18 10/28/18 10/28/18 18:59 06:59 18:59 Output Total 325 / 325 Balance -325 / -325 Weight 62.4 kg Output: Urine 325 / 325 Other: Date of Last Bowel Movement 10/26/18 10/26/18 Narrative: GENERAL: Well-developed and well-nourished with chronic hoarseness CARDIOVASCULAR: Regular rate and rhythm without murmurs, gallops, or rubs. RESPIRATORY: Breath sounds equal bilaterally. No accessory muscle use. GASTROINTESTINAL: Abdomen soft, non-tender, nondistended. MUSCULOSKELETAL: No cyanosis, or edema. BACK: Nontender without obvious deformity. No CVA tenderness. Alert and oriented with chronic left-sided weakness Results Labs CBC & Chem 7: 10/28/18 07:35 10/28/18 07:35 Procedures Procedures: EGD and bronchoscopy Assessment and Plan Plan 73-year-old man with Intermediate probability Pulmonary embolism The patient had a positive d-dimer and V/Q scan was intermediate probability for pulmonary embolism, although no ventilation/perfusion mismatches were noted. Unable to go for CTA s/t renal disease. Doppler lower extremity negative -This is unlikely pulmonary embolism -In the face of hemoptysis, heparin drip was discontinued October 19, 2018 -Maintain oxygen saturation above 92% -Appreciate input from pulmonary medicine, hematology History of recent CVA -Continue with aspirin, oral anticoagulation contraindicated due to hemoptysis and prior history of GI bleed. -PT to treat and eval Suspected endobronchial lesion right lower lobe per chest CT Patchy consolidative change in the left upper lobe Spiculated density in left lower lobe -Pulmonary medicine input appreciated, and status post bronchoscopy October cytology negative -Bronchoscopy culture with Proteus switched to Levaquin. Discontinue prednisone -Will need outpatient PET scan -Appreciate input from oncology Cough/? COPD exacerbation-improving The patient has a cough with mucus production. Also has a 50-year smoking history. -Maintain oxygen saturation above 92% -Smoking cessation instruction. -s/p IV doxycycline. -Discontinue prednisone 20 mg daily. Continue DuoNeb as needed -incentive spirometry. 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 EGD with the following result: 1. Old food residue in esophagus 2. 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 Food residue in the gastric fundus and cardia 4. Normal duodenal mucosa in the entire duodenum 5. Retroflexed views revealed a hiatal hernia 6. Retroflexed views revealed Possible Paraesophageal Hernia RECOMMENDATIONS: 1. Await biopsy results. Biopsy results will not be ready for 7-10 days. If you don't hear from us in two weeks, call our office for biopsy results. 2. 1. Barium UGI 2. Reglan 3. Esophageal manometry to check for Achalasia outpatient Will start PPI Chest pain-resolved Likely s/t above. Reproducible on exam. -telemetry. -pain control as needed. Hypertensive urgency/chronic CHF -Continue labetalol, increase amlodipine for better control and adjust as needed. -clonidine as needed. Moderate to severe caloric nutritional deficiency Consider dietitian consult Ensure to current diet Acute on chronic renal disease stage 4 -now back to near baseline -Renal ultrasound without any evidence of hydronephrosis -avoid nephrotoxins and monitor BUN and creatinine. -Nephrology consultation PRN PPx: B-SCDs Code Status: Full
--- NOTE | 2018-10-28 17:17 | P.DS ---
DS: Providers Date of admission: 10/17/18 15:57 Primary care physician: UNKNOWN Consults: 10/18/18 10:54 Consult to Hematology Routine Consulting Provider: José Leyva Reason for Consultation: 73-year-old male with intermediate VQ scan, currently on heparin drip, please evaluate and advise for possible therapy Notified:: Office Spoke with:: Becca Date Notified:: 10/18/18 Time Notified:: 11:12 Ordering Provider: LITO Consult to Pulmonology Routine Consulting Provider: Jaret Valle Reason for Consultation: 73-year with intermediate VQ scan, currently on heparin drip, please evaluate and advise for possible therapy Notified:: Service Spoke with:: Areli Date Notified:: 10/18/18 Time Notified:: 11:04 Ordering Provider: LITO 10/18/18 15:53 HUB Only Consult Order Routine Consulting Provider: [employer] 10/19/18 15:25 HUB Only Consult Order Routine Consulting Provider: [employer] 10/24/18 08:15 Consult to Gastroenterology Routine Consulting Provider: Samir Kothari V Reason for Consultation: EGD, Throat pain, weight loss,. Notified:: Office Spoke with:: Alejandra Date Notified:: 10/24/18 Time Notified:: 08:21 Ordering Provider: LYNN 10/26/18 11:08 HUB Only Consult Order Routine Consulting Provider: Sade Ewing Reason for Consultation: SNF Notified:: Office Spoke with:: IVANA Date Notified:: 10/26/18 Time:: 11:09 10/26/18 11:15 HUB Only Consult Order Routine Consulting Provider: [facility] Reason for Consultation: SNF Notified:: Office Spoke with:: DONALD Date Notified:: 10/26/18 Time:: 11:15 10/27/18 14:44 HUB Only Consult Order Routine Consulting Provider: [employer] 10/27/18 15:32 HUB Only Consult Order Routine Consulting Provider: Silviano Valencia Reason for Consultation: SNF Notified:: Office Spoke with:: BRIAN Date Notified:: 10/27/18 Time:: 15:33 10/27/18 16:30 HUB Only Consult Order Routine Consulting Provider: [facility],[place] Reason for Consultation: SNF Notified:: Office Spoke with:: MER Date Notified:: 10/27/18 Time:: 16:30 Brief History from admission: The patient is a 73-year-old male with history of hypertension and stroke who is presenting to the hospital after having a fall. The patient says that over the past week he has been feeling sick. He says that his voice has become hoarse all of a sudden. He also has been endorsing a cough with yellow mucus production. He says that he has been having intermittent chest pain for the past month or so. He says the chest pain comes and goes. It is not associated with activity. He does not get worse with deep breathing. He rates it as a 7 out of 10 in severity. He says that the chest pain is located in the left upper chest but sometimes affects the right upper chest. He says that today he fell down and his friend called an ambulance for him. The patient states that he had a stroke about 1 month ago and he developed left-sided weakness in the upper and lower extremities. He also developed facial droop. He says he has been taking a baby aspirin. He states that he has been feeling sluggish recently. He also feels like there is a part of his throat that feels strange to him. He does not have any difficulty swallowing and has not had episodes of choking. DS: Summary 73-year-old man with Intermediate probability Pulmonary embolism The patient had a positive d-dimer and V/Q scan was intermediate probability for pulmonary embolism, although no ventilation/perfusion mismatches were noted. Unable to go for CTA s/t renal disease. Doppler lower extremity negative -This is unlikely pulmonary embolism -In the face of hemoptysis, heparin drip was discontinued October 19, 2018 -Maintain oxygen saturation above 92% -Appreciate input from pulmonary medicine, hematology History of recent CVA -Continue with aspirin, oral anticoagulation contraindicated due to hemoptysis and prior history of GI bleed. -PT to treat and eval Suspected endobronchial lesion right lower lobe per chest CT Patchy consolidative change in the left upper lobe Spiculated density in left lower lobe -Pulmonary medicine input appreciated, and status post bronchoscopy October cytology negative -Bronchoscopy culture with Proteus switched to Levaquin. Discontinue prednisone -Will need outpatient PET scan -Appreciate input from oncology Cough/? COPD exacerbation-resolved mildly hypoxic this morning The patient has a cough with mucus production. Also has a 50-year smoking history. -Maintain oxygen saturation above 92% -Smoking cessation instruction. -s/p IV doxycycline. -Discontinue prednisone 20 mg daily. Continue DuoNeb as needed -incentive spirometry. 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 EGD with the following result: 1. Old food residue in esophagus 2. 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 Food residue in the gastric fundus and cardia 4. Normal duodenal mucosa in the entire duodenum 5. Retroflexed views revealed a hiatal hernia 6. Retroflexed views revealed Possible Paraesophageal Hernia RECOMMENDATIONS: 1. Await biopsy results. Biopsy results will not be ready for 7-10 days. If you don't hear from us in two weeks, call our office for biopsy results. 2. 1. Barium UGI 2. Reglan 3. Esophageal manometry to check for Achalasia outpatient Will start PPI Chest pain-resolved Likely s/t above. Reproducible on exam. -telemetry. -pain control as needed. Hypertensive urgency/chronic CHF -Continue labetalol, increase amlodipine for better control and adjust as needed. -clonidine as needed. NSVT. Continue beta-justa moderate to severe caloric nutritional deficiency Consider dietitian consult Ensure to current diet Acute on chronic renal disease stage 4 -now back to near baseline -Renal ultrasound without any evidence of hydronephrosis -avoid nephrotoxins and monitor BUN and creatinine. -Nephrology consultation PRN PPx: B-SCDs Code Status: Full Stable for discharge Time Spent with Patient Total time spent providing and/or coordinating discharge services: Greater than 30 minutes Exam Narrative Exam Narrative: GENERAL: Well-developed and well-nourished with chronic hoarseness CARDIOVASCULAR: Regular rate and rhythm without murmurs, gallops, or rubs. RESPIRATORY: Breath sounds equal bilaterally. No accessory muscle use. GASTROINTESTINAL: Abdomen soft, non-tender, nondistended. MUSCULOSKELETAL: No cyanosis, or edema. BACK: Nontender without obvious deformity. No CVA tenderness. Alert and oriented with chronic left-sided weakness Results Procedures completed during hospitalization: EGD and bronchoscopy Completed studies during hospitalization: Pending at discharge 10/26/18 07:44 Surgical [PTH] Routine Labs on day of discharge: Labs from last 24 hours 10/28/18 10/28/18 07:35 07:35 WBC 6.1 RBC 3.24 L Hgb 9.1 L Hct 27.9 L MCV 86.0 MCH 28.2 MCHC 32.7 RDW 17.2 Plt Count 205 MPV 7.3 Neut % (Auto) 72.4 H Lymph % (Auto) 12.3 [place] % (Auto) 13.2 H Eos % (Auto) 1.3 Baso % (Auto) 0.8 Neut # (Auto) 4.4 Lymph # (Auto) 0.8 L [place] # (Auto) 0.8 Eos # (Auto) 0.1 Baso # (Auto) 0.0 WBC Differential . Differential Comment Auto diff final Sodium 143 Potassium 4.3 Chloride 106 Carbon Dioxide 28.6 Anion Gap 8 BUN 49 H Creatinine 2.50 H Estimated GFR 31 L Random Glucose 97 Calcium 7.4 L* Calcium Adj for Albumin 8.7 Total Bilirubin 0.2 AST 12 L ALT 15 Alkaline Phosphatase 46 Total Protein 5.7 L Albumin 2.4 L Free T4 0.94 Free T3 1.79 L Preliminary micro results at discharge 10/21/18 09:02 Mycobacterial Culture - Preliminary Bronchial Washings - Left Upper Lobe No growth in 1 week 10/21/18 09:02 Fungal Culture - Preliminary Bronchial Washings - Right Lower Lobe No growth in 1 week 10/21/18 09:02 Fungal Culture - Preliminary Bronchial Washings - Left Upper Lobe No growth in 1 week 10/21/18 09:02 Mycobacterial Culture - Preliminary Bronchial Washings - Bronchial No growth in 1 week Impressions ITS Impressions Venous Doppler Study 10/17/18 00:00 CONCLUSION: 1. The study is negative for bilateral lower extremity deep venous thrombosis. Pulmonary Perfusion Imaging 10/17/18 13:32 CONCLUSION: 1. There are no ventilation/perfusion mismatches seen. However, there is segmental matched ventilatory and perfusion defects involving the posterior inferior lungs bilaterally. These matched defects, since they involve more than one segment and are seen more and more than one view, May this scan of intermediate probability for pulmonary embolism. Abdomen/Pelvis CT 10/18/18 00:00 CONCLUSION: 1. Constipation. 2. Right renal low-density. 3. Bilateral punctate renal calcifications likely vascular versus nonobstructing calculi. 4. Retrocrural adenopathy measures 15 mm, nonspecific. Chest CT 10/18/18 00:00 CONCLUSION: 1. Patchy consolidative changes in the left upper lobe. 2. Pleural-parenchymal density in the right lower lobe measures 4.3 x 3.0 cm. 3. Spiculated density in the left lower lobe measures 15 x 11 mm. 4. Suspected endobronchial lesion right lower lobe. Bronchoscopy may be warranted. 5. PET/CT scan recommended for biopsy planning. Abdomen/Bladder Ultrasound 10/21/18 00:00 CONCLUSION: 1. The kidneys are small bilaterally, left greater than right with increased echogenicity of the renal parenchyma characteristic of medical renal disease. 2. No evidence of hydronephrosis. 3. 1.5 cm cyst lower pole right kidney. Carotid Doppler Study 10/25/18 00:00 CONCLUSION: 1. Right Internal Carotid Artery: Mild to moderate atherosclerotic plaque at the bifurcation. No hemodynamically significant narrowing. 2. Left Internal Carotid Artery: Mild to moderate atherosclerotic plaque at the bifurcation. No hemodynamically significant narrowing. Videofluoroscopic Swallow 10/25/18 08:00 CONCLUSION: Fluoroscopy services provided to the speech pathologist. Poorly controlled oral phase. No aspiration demonstrated. Chest X-Ray 10/26/18 00:00 CONCLUSION: 1. Streaky opacity in the lung bases most consistent with atelectasis 2. Patchy opacity remains in the left upper lobe without significant change. Discharge Plan Discharge Disposition Patient Disposition: 03 Discharge to SNF Discharge Condition Condition: Stable Discharge Order Discharge Orders: Discharge Order (Routine); Ordered 10/27/18 Ordered By: Jacinto Dimas Physicians Team ED Provider: Gatito Spencer ED Midlevel Provider: Ramón Aldana Primary Care Provider: UNKNOWN, Attending Provider: Jacinto Dimas Other Providers: José Leyva ; Jaret Valle ; [employer] ; Samir Kothari V ; [facility] ; [facility] ; [facility],Agency Rxs /Orders / Referrals /Forms Prescriptions: New ipratropium-albuterol 0.5 mg-3 mg(2.5 mg base)/3 mL Solution For Nebulization 1 amp NEB Q6HR NEB Qty: 360 RF: 0 ipratropium-albuterol 0.5 mg-3 mg(2.5 mg base)/3 mL Solution For Nebulization 1 amp NEB Q2HR NEB PRN (Reason: Dyspnea) Qty: 100 RF: 0 amlodipine [Norvasc] 5 mg Tablet 10 mg PO DAILY Qty: 30 RF: 0 aspirin 81 mg Tablet,Delayed Release (Dr/Ec) 81 mg PO DAILY Qty: 30 RF: 0 gabapentin [Neurontin] 300 mg Capsule 300 mg PO BID Qty: 60 RF: 0 labetalol 300 mg Tablet 300 mg PO BID Qty: 60 RF: 0 budesonide-formoterol [Symbicort] 160-4.5 mcg/actuation Hfa Aerosol Inhaler 2 puff INH BID Qty: 1 RF: 0 metoclopramide HCl [Reglan] 5 mg tablet 5 mg PO Q8HR Qty: 90 RF: 0 pantoprazole 40 mg Tablet,Delayed Release (Dr/Ec) 40 mg PO DAILY Qty: 30 RF: 0 Discontinued hydrocodone-acetaminophen [Crucible] 10-325 mg Tablet 1 tab PO Q6H RF: 0 labetalol 300 mg Tablet 300 mg PO TID RF: 0 Referrals: Samir Kothari MD [Physician] - See Instructions (Follow-up in 1-2 weeks) Magen Huitron MD [Physician] - See Instructions (Follow-up in 1-2 weeks) UNKNOWN, [Primary Care Provider] - See Instructions (Follow-up PCP in 1 week) Discharge Instructions Patient Printed Instructions: Chest Pain (ED), Spontaneous Pneumothorax (DC), COPD (Chronic Obstructive Pulmonary Disease) (DC), Flexible Bronchoscopy (DC) Post Discharge Care Plan Care Plan Goals: Your Health Problems: Goals to Promote Your Health: * To prevent worsening of your condition * To maintain your health at the optimal level Directions to Meet Your Goals: * Take your medications as prescribed * Follow your dietary instruction * Follow activity as directed * Keep your appointments as scheduled * Take your immunizations and boosters as scheduled * If your symptoms worsen call your PCP * If no PCP go to Urgent Care or Emergency Room Smoking is dangerous to your health. Avoid second hand smoke. You may reach the 24-hour crisis hotline for domestic abuse at . Status ED Status: Left Department Discharge Information Discharge Date/Time: 10/31/18 12:51
--- NOTE | 2018-10-28 19:42 | P.PN ---
Subjective Interval history: Still has hoarseness of voice. Off oxygen saturation 95 Going to rehab today. Output remains good No evidence of aspiration. Physical Exam Vital signs: Vital Signs 10/27/18 20:00 10/27/18 21:00 10/28/18 00:00 GENERAL: Elderly -[place] male alert pale and in no distress SKIN: Warm and dry. HEAD: Atraumatic. Normocephalic. EYES: Pupils equal and round. No scleral icterus. No injection or drainage. ENT: No nasal bleeding or discharge. Mucous membranes pink and moist. NECK: Trachea midline. No JVD. CARDIOVASCULAR: Regular rate and rhythm. RESPIRATORY: No accessory muscle use. Few scattered wheezes. Breath sounds equal bilaterally. GASTROINTESTINAL: Abdomen soft, non-tender, nondistended. Hepatic and splenic margins not palpable. MUSCULOSKELETAL: Extremities without clubbing, cyanosis, or edema. No obvious deformities. NEUROLOGICAL: Awake and alert. No obvious cranial nerve deficits. Motor grossly within normal limits. PSYCHIATRIC: Appropriate mood and affectl.Temperature 98.4 F 98.3 F Pulse Rate 83 82 84 Respiratory Rate 20 15 20 Blood Pressure 105/58 L 113/61 Pulse Oximetry 96 95 10/28/18 03:00 10/28/18 04:00 10/28/18 08:00 Temperature 97.9 F 99.2 F Pulse Rate 88 87 85 Respiratory Rate 20 20 16 Blood Pressure 110/57 L 109/58 L Pulse Oximetry 93 L 93 L 10/28/18 10:19 10/28/18 12:00 10/28/18 16:00 Temperature 98.5 F 98.3 F Pulse Rate 74 92 H 88 Respiratory Rate 16 16 16 Blood Pressure 115/60 102/51 L Pulse Oximetry 94 L 92 L 10/28/18 16:01 Temperature Pulse Rate 85 Respiratory Rate 16 Blood Pressure Pulse Oximetry Intake & Output 10/28/18 10/28/18 10/29/18 06:59 18:59 06:59 Output Total 325 / 325 1600 / 1600 Balance -325 / -325 -1600 / -1600 Weight 62.4 kg Output: Urine 325 / 325 1600 / 1600 Other: Date of Last Bowel Movement 10/26/18 10/26/18 Results - Labs CBC & Chem 7: 10/28/18 07:35 10/28/18 07:35 Laboratory Results - last 24 hr 10/28/18 10/28/18 07:35 07:35 WBC 6.1 RBC 3.24 L Hgb 9.1 L Hct 27.9 L MCV 86.0 MCH 28.2 MCHC 32.7 RDW 17.2 Plt Count 205 MPV 7.3 Neut % (Auto) 72.4 H Lymph % (Auto) 12.3 [place] % (Auto) 13.2 H Eos % (Auto) 1.3 Baso % (Auto) 0.8 Neut # (Auto) 4.4 Lymph # (Auto) 0.8 L [place] # (Auto) 0.8 Eos # (Auto) 0.1 Baso # (Auto) 0.0 WBC Differential . Differential Comment Auto diff final Sodium 143 Potassium 4.3 Chloride 106 Carbon Dioxide 28.6 Anion Gap 8 BUN 49 H Creatinine 2.50 H Estimated GFR 31 L Random Glucose 97 Calcium 7.4 L* Calcium Adj for Albumin 8.7 Total Bilirubin 0.2 AST 12 L ALT 15 Alkaline Phosphatase 46 Total Protein 5.7 L Albumin 2.4 L Free T4 0.94 Free T3 1.79 L Microbiology 10/21/18 09:02 Bronchial Washings - Left Upper Lobe Acid Fast Bacilli Smear - Final No acid fast bacilli seen 10/21/18 09:02 Bronchial Washings - Left Upper Lobe Mycobacterial Culture - Preliminary No growth in 1 week 10/21/18 09:02 Bronchial Washings - Right Lower Lobe Fungal Smear - Final No fungal elements seen 10/21/18 09:02 Bronchial Washings - Right Lower Lobe Fungal Culture - Preliminary No growth in 1 week 10/21/18 09:02 Bronchial Washings - Left Upper Lobe Fungal Smear - Final No fungal elements seen 10/21/18 09:02 Bronchial Washings - Left Upper Lobe Fungal Culture - Preliminary No growth in 1 week 10/21/18 09:02 Bronchial Washings - Bronchial Acid Fast Bacilli Smear - Final No acid fast bacilli seen 10/21/18 09:02 Bronchial Washings - Bronchial Mycobacterial Culture - Preliminary No growth in 1 week - Procedures EGD and bronchoscopy Assessment and Plan - Assessment (1) COPD (chronic obstructive pulmonary disease) Code(s): J44.9 - Chronic obstructive pulmonary disease, unspecified Status: Acute (2) Pneumonia Code(s): J18.9 - Pneumonia, unspecified organism Status: Acute (3) Hemoptysis Code(s): R04.2 - Hemoptysis Status: Acute (4) Pleuritic chest pain Code(s): R07.81 - Pleurodynia Status: Acute - Plan 1 will get PET/CT scan as outpatient 2 continue antibiotic therapy as ordered 3. Continue DuoNeb nebs 3 times daily. 4. Home today 5. DC O2 6. Symbicort 160 x 4.5 mcg 2 puffs twice daily 7. Follow-up as outpatient in 2 weeks
--- NOTE | 2018-10-29 05:08 | P.DCO ---
Physical Therapy Order: Evaluate and treat, Improve ambulation and Strength and gait training Speech Therapy Order: To improve: Swallowing Case Management Consult Case Management Consult-Home Health: Yes I have seen patient Leida Cordova III on 10/29/18. My clinical findings support the need for the requested home health care services because: Limited mobility due to disease progression, Patient has SOB and Deconditioned with increased weakness I certify that my clinical findings support that this patient is homebound because: Unsafe to leave home unassisted and Need for psychosocial assistance
[2018-10-29] MEDS: amLODIPine 10 MG Tablet PO SCH (08:16)
[2018-10-29] MEDS: Gabapentin 300 MG Capsule PO SCH ×2 (08:19→21:44)
[2018-10-29] MEDS: Senna/Docusate Sodium 8.6/50 MG Tablet PO SCH ×2 (08:20→21:44)
[2018-10-29] MEDS: Budesonide-Formoterol 160/4.5 MCG 6 GM Inhaler INH SCH ×2 (08:20→21:45)
--- NOTE | 2018-10-29 11:57 | P.PNIM ---
Subjective Interval history: Follow-up follow-up COPD. Mildly hypoxic this morning but denies shortness of breath. Stable odynophagia Physical Exam Vital signs: Vital Signs 10/28/18 12:00 10/28/18 16:00 10/28/18 16:01 Temperature 98.5 F 98.3 F Pulse Rate 92 H 88 85 Respiratory Rate 16 16 16 Blood Pressure 115/60 102/51 L Pulse Oximetry 94 L 92 L 10/28/18 20:00 10/28/18 20:05 10/28/18 20:37 Temperature 97.9 F Pulse Rate 92 H 102 H 88 Respiratory Rate 16 16 Blood Pressure 113/59 L Pulse Oximetry 90 L 10/28/18 23:38 10/29/18 01:00 10/29/18 03:23 Temperature 98.9 F Pulse Rate 90 87 Respiratory Rate 16 15 Blood Pressure 119/59 L Pulse Oximetry 89 L 94 L 10/29/18 04:00 10/29/18 07:33 10/29/18 09:51 Temperature 98.6 F 99.1 F Pulse Rate 82 84 87 Respiratory Rate 16 20 16 Blood Pressure 120/56 L 96/46 L Pulse Oximetry 92 L 93 L 10/29/18 09:54 Temperature Pulse Rate Respiratory Rate Blood Pressure Pulse Oximetry 94 L Intake & Output 10/28/18 10/29/18 10/29/18 18:59 06:59 18:59 Intake Total 400 / 400 Output Total 1600 / 1600 1400 / 1400 Balance -1600 / -1600 400 / 400 -1400 / -1400 Intake: Oral 400 / 400 Output: Urine 1600 / 1600 1400 / 1400 Other: Date of Last Bowel Movement 10/26/18 10/26/18 Narrative: GENERAL: Well-developed and well-nourished with chronic hoarseness CARDIOVASCULAR: Regular rate and rhythm without murmurs, gallops, or rubs. RESPIRATORY: Breath sounds equal bilaterally. No accessory muscle use. GASTROINTESTINAL: Abdomen soft, non-tender, nondistended. MUSCULOSKELETAL: No cyanosis, or edema. BACK: Nontender without obvious deformity. No CVA tenderness. Alert and oriented with chronic left-sided weakness Results Labs CBC & Chem 7: 10/28/18 07:35 10/28/18 07:35 Labs: Microbiology 10/21/18 09:02 Bronchial Washings - Left Upper Lobe Acid Fast Bacilli Smear - Final No acid fast bacilli seen 10/21/18 09:02 Bronchial Washings - Left Upper Lobe Mycobacterial Culture - Preliminary No growth in 1 week 10/21/18 09:02 Bronchial Washings - Right Lower Lobe Fungal Smear - Final No fungal elements seen 10/21/18 09:02 Bronchial Washings - Right Lower Lobe Fungal Culture - Preliminary No growth in 1 week 10/21/18 09:02 Bronchial Washings - Left Upper Lobe Fungal Smear - Final No fungal elements seen 10/21/18 09:02 Bronchial Washings - Left Upper Lobe Fungal Culture - Preliminary No growth in 1 week 10/21/18 09:02 Bronchial Washings - Bronchial Acid Fast Bacilli Smear - Final No acid fast bacilli seen 10/21/18 09:02 Bronchial Washings - Bronchial Mycobacterial Culture - Preliminary No growth in 1 week Procedures Procedures: EGD and bronchoscopy Assessment and Plan Plan 73-year-old man with Intermediate probability Pulmonary embolism The patient had a positive d-dimer and V/Q scan was intermediate probability for pulmonary embolism, although no ventilation/perfusion mismatches were noted. Unable to go for CTA s/t renal disease. Doppler lower extremity negative -This is unlikely pulmonary embolism -In the face of hemoptysis, heparin drip was discontinued October 19, 2018 -Maintain oxygen saturation above 92% -Appreciate input from pulmonary medicine, hematology History of recent CVA -Continue with aspirin, oral anticoagulation contraindicated due to hemoptysis and prior history of GI bleed. -PT to treat and eval Suspected endobronchial lesion right lower lobe per chest CT Patchy consolidative change in the left upper lobe Spiculated density in left lower lobe -Pulmonary medicine input appreciated, and status post bronchoscopy October cytology negative -Bronchoscopy culture with Proteus switched to Levaquin. Discontinue prednisone -Will need outpatient PET scan -Appreciate input from oncology Cough/? COPD exacerbation-resolved mildly hypoxic this morning The patient has a cough with mucus production. Also has a 50-year smoking history. -Maintain oxygen saturation above 92% -Smoking cessation instruction. -s/p IV doxycycline. -Discontinue prednisone 20 mg daily. Continue DuoNeb as needed -incentive spirometry. 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 EGD with the following result: 1. Old food residue in esophagus 2. 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 Food residue in the gastric fundus and cardia 4. Normal duodenal mucosa in the entire duodenum 5. Retroflexed views revealed a hiatal hernia 6. Retroflexed views revealed Possible Paraesophageal Hernia RECOMMENDATIONS: 1. Await biopsy results. Biopsy results will not be ready for 7-10 days. If you don't hear from us in two weeks, call our office for biopsy results. 2. 1. Barium UGI 2. Reglan 3. Esophageal manometry to check for Achalasia outpatient Will start PPI Chest pain-resolved Likely s/t above. Reproducible on exam. -telemetry. -pain control as needed. Hypertensive urgency/chronic CHF -Continue labetalol, increase amlodipine for better control and adjust as needed. -clonidine as needed. Moderate to severe caloric nutritional deficiency Consider dietitian consult Ensure to current diet Acute on chronic renal disease stage 4 -now back to near baseline -Renal ultrasound without any evidence of hydronephrosis -avoid nephrotoxins and monitor BUN and creatinine. -Nephrology consultation PRN PPx: B-SCDs Code Status: Full Stable for discharge awaiting insurance authorization for rehab
[2018-10-30] MEDS: Gabapentin 300 MG Capsule PO SCH ×2 (08:21→21:02)
[2018-10-30] MEDS: amLODIPine 10 MG Tablet PO SCH (08:21)
[2018-10-30] MEDS: Senna/Docusate Sodium 8.6/50 MG Tablet PO SCH ×2 (08:21→21:02)
[2018-10-30] MEDS: Budesonide-Formoterol 160/4.5 MCG 6 GM Inhaler INH SCH ×2 (08:22→21:07)
--- NOTE | 2018-10-30 12:16 | P.PNIM ---
Subjective Interval history: Follow-up COPD and odynophagia. She states he is about the same currently on 2 L nasal cannula. Tolerated breakfast Physical Exam Vital signs: Vital Signs 10/29/18 15:37 10/29/18 16:00 10/29/18 20:00 Temperature 97.4 F L 98.2 F Pulse Rate 83 79 89 Respiratory Rate 16 20 17 Blood Pressure 118/59 L 143/63 H Pulse Oximetry 100 96 10/30/18 00:00 10/30/18 00:18 10/30/18 03:53 Temperature 98.3 F Pulse Rate 81 83 77 Respiratory Rate 17 Blood Pressure 136/64 Pulse Oximetry 95 10/30/18 04:00 10/30/18 07:35 10/30/18 11:30 Temperature 98.3 F 98.6 F 97.8 F Pulse Rate 79 71 77 Respiratory Rate 18 20 20 Blood Pressure 132/62 114/55 L 101/99 H Pulse Oximetry 93 L 99 97 Intake & Output 10/29/18 10/30/18 10/30/18 18:59 06:59 18:59 Intake Total 720 / 720 400 / 400 480 / 480 Output Total 1700 / 1700 500 / 500 800 / 800 Balance -980 / -980 -100 / -100 -320 / -320 Weight 62.6 kg Intake: Oral 720 / 720 400 / 400 480 / 480 Output: Urine 1700 / 1700 500 / 500 800 / 800 Other: # Voids 2 Date of Last Bowel Movement 10/26/18 Narrative: GENERAL: Well-developed and well-nourished with chronic hoarseness CARDIOVASCULAR: Regular rate and rhythm without murmurs, gallops, or rubs. RESPIRATORY: Breath sounds equal bilaterally. No accessory muscle use. GASTROINTESTINAL: Abdomen soft, non-tender, nondistended. MUSCULOSKELETAL: No cyanosis, or edema. BACK: Nontender without obvious deformity. No CVA tenderness. Alert and oriented with chronic left-sided weakness Results Labs CBC & Chem 7: 10/28/18 07:35 10/28/18 07:35 Procedures Procedures: EGD and bronchoscopy Assessment and Plan Plan 73-year-old man with Intermediate probability Pulmonary embolism The patient had a positive d-dimer and V/Q scan was intermediate probability for pulmonary embolism, although no ventilation/perfusion mismatches were noted. Unable to go for CTA s/t renal disease. Doppler lower extremity negative -This is unlikely pulmonary embolism -In the face of hemoptysis, heparin drip was discontinued October 19, 2018 -Maintain oxygen saturation above 92% -Appreciate input from pulmonary medicine, hematology History of recent CVA -Continue with aspirin, oral anticoagulation contraindicated due to hemoptysis and prior history of GI bleed. -PT to treat and eval Suspected endobronchial lesion right lower lobe per chest CT Patchy consolidative change in the left upper lobe Spiculated density in left lower lobe -Pulmonary medicine input appreciated, and status post bronchoscopy October cytology negative -Bronchoscopy culture with Proteus switched to Levaquin. Discontinue prednisone -Will need outpatient PET scan -Appreciate input from oncology Cough/? COPD exacerbation-resolved mildly hypoxic this morning The patient has a cough with mucus production. Also has a 50-year smoking history. -Maintain oxygen saturation above 92% -Smoking cessation instruction. -s/p IV doxycycline. -Discontinue prednisone 20 mg daily. Continue DuoNeb as needed -incentive spirometry. 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 EGD with the following result: 1. Old food residue in esophagus 2. 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 Food residue in the gastric fundus and cardia 4. Normal duodenal mucosa in the entire duodenum 5. Retroflexed views revealed a hiatal hernia 6. Retroflexed views revealed Possible Paraesophageal Hernia RECOMMENDATIONS: 1. Await biopsy results. Biopsy results will not be ready for 7-10 days. If you don't hear from us in two weeks, call our office for biopsy results. 2. 1. Barium UGI 2. Reglan 3. Esophageal manometry to check for Achalasia outpatient Will start PPI Chest pain-resolved Likely s/t above. Reproducible on exam. -telemetry. -pain control as needed. Hypertensive urgency/chronic CHF -Continue labetalol, increase amlodipine for better control and adjust as needed. -clonidine as needed. Moderate to severe caloric nutritional deficiency Consider dietitian consult Ensure to current diet Acute on chronic renal disease stage 4 -now back to near baseline -Renal ultrasound without any evidence of hydronephrosis -avoid nephrotoxins and monitor BUN and creatinine. -Nephrology consultation PRN PPx: B-SCDs Code Status: Full Stable for discharge awaiting insurance authorization for rehab
[2018-10-30 18:55] LABS: Calcium 7.7 mg/dL (8.5-10.1); Carbon Dioxide 25.3 meq/L (21.0-32.0); Magnesium 2.3 mg/dL (1.5-2.5); Potassium 4.4 meq/L (3.5-5.1)
--- NOTE | 2018-10-31 07:30 | P.PNONC ---
Subjective Interval history: Patient still complains dysphagia. He still has cough and shortness of breath but improved. Denies any chest pain or palpitation. He remains afebrile. Objective Vital Signs/Intake & Output: Vital Signs 10/30/18 07:35 10/30/18 11:30 10/30/18 15:40 Temperature 98.6 F 97.8 F 99.2 F Pulse Rate 71 77 77 Respiratory Rate 20 20 18 Blood Pressure 114/55 L 101/99 H 117/59 L Pulse Oximetry 99 97 99 10/30/18 20:08 10/30/18 20:10 10/31/18 00:10 Temperature 98.6 F 97.8 F Pulse Rate 84 84 87 Respiratory Rate 20 20 Blood Pressure 157/67 H 125/57 L Pulse Oximetry 97 96 10/31/18 04:00 10/31/18 04:08 Temperature 98.6 F Pulse Rate 83 86 Respiratory Rate 20 Blood Pressure 143/65 H Pulse Oximetry 96 Intake & Output 10/30/18 10/31/18 10/31/18 18:59 06:59 18:59 Intake Total 1440 / 1440 Output Total 1800 / 1800 Balance -360 / -360 Weight 62.5 kg Intake: Oral 1440 / 1440 Output: Urine 1800 / 1800 Other: # Voids 3 Result Diagrams: 10/28/18 07:35 10/30/18 18:12 Laboratory Results: Laboratory Results - last 24 hr 10/30/18 18:12 Sodium 142 Potassium 4.4 Chloride 107 Carbon Dioxide 25.3 Anion Gap 10 BUN 36 H Creatinine 2.22 H Estimated GFR 36 L Random Glucose 107 H Calcium 7.7 L Magnesium 2.3 Culture Results: Microbiology 10/21/18 09:02 Acid Fast Bacilli Smear - Final Bronchial Washings - Left Upper Lobe No acid fast bacilli seen Mycobacterial Culture - Preliminary No growth in 1 week 10/21/18 09:02 Fungal Smear - Final Bronchial Washings - Right Lower Lobe No fungal elements seen Fungal Culture - Preliminary No growth in 1 week 10/21/18 09:02 Fungal Smear - Final Bronchial Washings - Left Upper Lobe No fungal elements seen Fungal Culture - Preliminary No growth in 1 week 10/21/18 09:02 Acid Fast Bacilli Smear - Final Bronchial Washings - Bronchial No acid fast bacilli seen Mycobacterial Culture - Preliminary No growth in 1 week Medications: Active Medications Generic Name Dose Route Start Last Admin Trade Name Freq PRN Reason Stop Dose Admin Hydrocodone Bitart/Acetaminophen 1 tab 10/17/18 16:01 10/29/18 21:48 [place] 5/325 PO 1 tab Q6H PRN Administration pain 3-10 Amlodipine Besylate 10 mg 10/26/18 09:00 10/30/18 08:21 Norvasc PO 10 mg DAILY EWELINA Administration Aspirin 81 mg 10/18/18 09:00 10/30/18 08:21 Ecotrin PO 81 mg DAILY EWELINA Administration Budesonide/Formoterol Fumarate 2 puff 10/18/18 13:00 10/30/18 21:07 Symbicort 160/4.5 Mcg Inh INH 2 puff BID EWELINA Administration Clonidine HCl 0.1 mg 10/17/18 17:35 10/17/18 18:43 Catapres PO 0.1 mg Q6H PRN Administration SBP> OR = 180, DBP> OR = 100 Gabapentin 300 mg 10/25/18 09:00 10/30/18 21:02 Neurontin PO 300 mg BID EWELINA Administration Heparin Sodium (Porcine) 5,000 units 10/20/18 21:00 10/22/18 00:05 Heparin Inj SQ Not Given Q12HR EWELINA Labetalol HCl 300 mg 10/17/18 21:00 10/30/18 21:02 Trandate PO 300 mg BID EWELINA Administration Metoclopramide HCl 5 mg 10/26/18 16:00 10/31/18 05:58 Reglan Inj IV.PUSH 5 mg Q8HR EWELINA Administration Protocol Pantoprazole Sodium 40 mg 10/28/18 09:00 10/30/18 08:21 Protonix PO 40 mg DAILY EWELINA Administration Senna/Docusate Sodium 1 tab 10/17/18 21:00 10/30/18 21:02 Faviola-Colace PO 1 tab BID EWELINA Administration Sodium Chloride 2 ml 10/17/18 21:00 10/30/18 21:07 Ns Flush IV.FLUSH 2 ml BID EWELINA Administration Sodium Chloride 2 ml 10/17/18 15:58 10/29/18 06:31 Ns Flush IV.FLUSH 2 ml PRN PRN Administration FLUSH AFTER USING IV ACCESS Objective Remarks: GENERAL: Well-nourished, well-developed patient. Weak. SKIN: Warm and dry. HEAD: Normocephalic. EYES: No scleral icterus. No injection or drainage. NECK: Supple, trachea midline. No JVD or lymphadenopathy. LYMPHATIC: No adenopathy. CARDIOVASCULAR: Regular rate and rhythm without murmurs. RESPIRATORY: Breath sounds positive rhonchi. No accessory muscle use. GASTROINTESTINAL: Abdomen soft, non-tender, nondistended. EXTREMITIES: No cyanosis, or edema. MUSCULOSKELETAL: Adequate muscle tone. NEUROLOGICAL: No obvious focal deficit. Awake, alert, and oriented x3. PSYCHIATRIC: Appropriate mood and affect; insight and judgment normal. Assessment/Plan - Plan Mr. Jimenez is a pleasant 73-year-old male patient who presented to the hospital after a fall. 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 Patient had an indeterminate VQ scan and hematology was consulted. Plan: 1. Spiculated density in the left lower lobe measures 15 x 11 mm. Status post bronchoscopy 10/21/2018. No endobronchial lesions noted, mucous plugs removed. He still has cough and shortness of breath but improved with antibiotic. The left lung spiculated lesion will need to be monitored closely. He will need repeat CT as outpatient in a few weeks. He can follow-up with pulmonology or oncology after discharge. 2. Throat pain, continue. Workup showed possible achalasia. Follow-up with GI. 3. Continue DVT prophylaxis with subcu heparin. 4. Patient cleared from an oncology standpoint for discharge. He is awaiting fpc placement. He should follow-up with oncology for repeat CT scan to follow-up on the spiculated density in the left lower lobe.
[2018-10-31] MEDS: Gabapentin 300 MG Capsule PO SCH (09:10)
[2018-10-31] MEDS: Senna/Docusate Sodium 8.6/50 MG Tablet PO SCH (09:10)
[2018-10-31] MEDS: amLODIPine 10 MG Tablet PO SCH (09:10)
[2018-10-31] MEDS: Budesonide-Formoterol 160/4.5 MCG 6 GM Inhaler INH SCH (10:17)
--- NOTE | 2018-10-31 12:00 | P.PNIM ---
Subjective Interval history: Follow-up NSVT. Called by nursing yesterday secondary to 4 beat run patient completely asymptomatic. Repeat BMP and mag unremarkable. Physical Exam Vital signs: Vital Signs 10/30/18 15:40 10/30/18 20:08 10/30/18 20:10 Temperature 99.2 F 98.6 F Pulse Rate 77 84 84 Respiratory Rate 18 20 Blood Pressure 117/59 L 157/67 H Pulse Oximetry 99 97 10/31/18 00:10 10/31/18 04:00 10/31/18 04:08 Temperature 97.8 F 98.6 F Pulse Rate 87 83 86 Respiratory Rate 20 20 Blood Pressure 125/57 L 143/65 H Pulse Oximetry 96 96 10/31/18 07:34 Temperature 98.8 F Pulse Rate 82 Respiratory Rate 20 Blood Pressure 128/58 L Pulse Oximetry 95 Intake & Output 10/30/18 10/31/18 10/31/18 18:59 06:59 18:59 Intake Total 1440 / 1440 480 / 480 Output Total 1800 / 1800 800 / 800 Balance -360 / -360 -320 / -320 Weight 62.5 kg Intake: Oral 1440 / 1440 480 / 480 Output: Urine 1800 / 1800 800 / 800 Other: # Voids 3 Date of Last Bowel Movement 10/31/18 Narrative: GENERAL: Well-developed and well-nourished with chronic hoarseness CARDIOVASCULAR: Regular rate and rhythm without murmurs, gallops, or rubs. RESPIRATORY: Breath sounds equal bilaterally. No accessory muscle use. GASTROINTESTINAL: Abdomen soft, non-tender, nondistended. MUSCULOSKELETAL: No cyanosis, or edema. BACK: Nontender without obvious deformity. No CVA tenderness. Alert and oriented with chronic left-sided weakness Results Labs CBC & Chem 7: 10/28/18 07:35 10/30/18 18:12 Procedures Procedures: EGD and bronchoscopy Assessment and Plan Plan 73-year-old man with Intermediate probability Pulmonary embolism The patient had a positive d-dimer and V/Q scan was intermediate probability for pulmonary embolism, although no ventilation/perfusion mismatches were noted. Unable to go for CTA s/t renal disease. Doppler lower extremity negative -This is unlikely pulmonary embolism -In the face of hemoptysis, heparin drip was discontinued October 19, 2018 -Maintain oxygen saturation above 92% -Appreciate input from pulmonary medicine, hematology History of recent CVA -Continue with aspirin, oral anticoagulation contraindicated due to hemoptysis and prior history of GI bleed. -PT to treat and eval Suspected endobronchial lesion right lower lobe per chest CT Patchy consolidative change in the left upper lobe Spiculated density in left lower lobe -Pulmonary medicine input appreciated, and status post bronchoscopy October cytology negative -Bronchoscopy culture with Proteus switched to Levaquin. Discontinue prednisone -Will need outpatient PET scan -Appreciate input from oncology Cough/? COPD exacerbation-resolved mildly hypoxic this morning The patient has a cough with mucus production. Also has a 50-year smoking history. -Maintain oxygen saturation above 92% -Smoking cessation instruction. -s/p IV doxycycline. -Discontinue prednisone 20 mg daily. Continue DuoNeb as needed -incentive spirometry. 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 EGD with the following result: 1. Old food residue in esophagus 2. 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 Food residue in the gastric fundus and cardia 4. Normal duodenal mucosa in the entire duodenum 5. Retroflexed views revealed a hiatal hernia 6. Retroflexed views revealed Possible Paraesophageal Hernia RECOMMENDATIONS: 1. Await biopsy results. Biopsy results will not be ready for 7-10 days. If you don't hear from us in two weeks, call our office for biopsy results. 2. 1. Barium UGI 2. Reglan 3. Esophageal manometry to check for Achalasia outpatient Will start PPI Chest pain-resolved Likely s/t above. Reproducible on exam. -telemetry. -pain control as needed. Hypertensive urgency/chronic CHF -Continue labetalol, increase amlodipine for better control and adjust as needed. -clonidine as needed. NSVT. Continue beta-justa moderate to severe caloric nutritional deficiency Consider dietitian consult Ensure to current diet Acute on chronic renal disease stage 4 -now back to near baseline -Renal ultrasound without any evidence of hydronephrosis -avoid nephrotoxins and monitor BUN and creatinine. -Nephrology consultation PRN PPx: B-SCDs Code Status: Full Stable for discharge awaiting insurance authorization for rehab
== END 2018-10-31 12:51 | DRG 190 ==
LOC: NEPC 12:10 → NEDA 15:57 → N05 18:13
PROVIDERS: ADMIT Internal Medicine; ATTEND Internal Medicine
PROC: PANENDO (2018-10-26 12:41)
CPT/HCPCS: 31622; 71010; 71020; 71045; 71046; 71250; 74176; 74230; 74241; 76000; 76775; 78582; 80048; 80053; 80061; 82550; 82552; 82948; 82962; 83036; 83735; 84439; 84443; 84481; 84484; 85025; 85379; 85610; 85730; 87015; 87070; 87077; 87102; 87116; 87186; 87205; 87206; 88112; 88305; 90774; 90784; 92526; 92610; 92611; 93005; 93306; 93880; 93970; 94150; 94640; 94664; 94665; 96374; 97110; 97116; 97163; 99285; A9519; A9540; A9567; C1094; C1726; C8952; G0103; G0195; G0196; J1100; J1644; J2405; J2704; J2710; J2765; J2930; J3010; J7040; J7042; J7506; J7512